=== PATIENT | male | born 1945 | race Caucasian/White ===

== ENCOUNTER 2018-01-16 16:41 | Inpatient (IN) | payer MEDICARE, OTHER ==
[2018-01-16] MEDS ORDERED: Ondansetron 4 MG/2 ML SDV IVPUSH ONE (16:46)
[2018-01-16] MEDS ORDERED: Morphine 4 MG/ML Syringe IVPUSH ONE ×2 (16:46→18:05)
--- NOTE | 2018-01-16 16:58 | EDM.PDOC ---
ED HPI GENERAL MEDICAL PROBLEM - General Stated Complaint: LT LEG FX Time Seen by Provider: 01/16/18 16:41 Source of Information: Reports: Patient History Limitations: Reports: No Limitations - History of Present Illness INITIAL COMMENTS - FREE TEXT/NARRATIVE: c/o LLE pain pt outside, walking on deck of a trailer home, LLE went between a wood and metal support beam deformity, no break in skin per EMS, good 1+ L DP pulse present LLE splinted, slight swell and abrasion of LLE denies pain of L knee/hip lives with his children declined pain meds with EMS, is having more pain now and agreed to meds denies previous CV PMH: includes HTN, DM, COPD - Related Data Allergies Allergy/AdvReac Type Severity Reaction Status Date / Time Sulfa (Sulfonamide Allergy Cannot Verified 08/12/16 04:02 Antibiotics) Remember Home Meds: Home Meds Aspirin 325 mg PO DAILY 02/22/15 [History] Citalopram [Citalopram HBr] 40 mg PO DAILY 02/22/15 [History] Insulin Aspart [Novolog Flexpen] 10 units SQ WDIN 02/22/15 [History] Insulin Detemir [Levemir Flextouch] 30 units SQ BEDTIME 02/22/15 [History] Losartan [Cozaar] 100 mg PO DAILY 02/22/15 [History] Metoprolol Tartrate 100 mg PO BID 02/22/15 [History] amLODIPine [Norvasc] 5 mg PO DAILY 02/22/15 [History] Azithromycin [Zithromax] 250 mg PO DAILY@1800 #4 tablet 02/24/15 [Rx] Budesonide/Formoterol [Symbicort 160-4.5 MCG] 2 puff IH BID 08/13/16 [History] Insulin Aspart [NovoLOG] 0 units SUBCUT TIDMEALS PRN 08/13/16 [History] atorvaSTATin [Lipitor] 10 mg PO BEDTIME 08/13/16 [History] Levofloxacin [Levaquin] 500 mg PO Q24H #7 tablet 08/15/16 [Rx] predniSONE [Prednisone] 10 mg PO ASDIRECTED #6 tablet 08/15/16 [Rx] Past Medical History HEENT History: Reports: Impaired Vision Cardiovascular History: Reports: Hypertension, [place], SOB on Exertion Respiratory History: Reports: Bronchitis, Recurrent, COPD, SOB Musculoskeletal History: Reports: Arthritis, Back Pain, Chronic Endocrine/Metabolic History: Reports: Diabetes, Type II Oncologic (Cancer) History: Reports: Prostate - Infectious Disease History Infectious Disease History: Reports: Chicken Pox, Measles - Past Surgical History GI Surgical History: Reports: Appendectomy Social & Family History - Family History Family Medical History: Noncontributory - Tobacco Use Smoking Status *Q: Current Every Day Smoker Years of Tobacco use: 65 Packs/Tins Daily: 1 Second Hand Smoke Exposure: Yes - Caffeine Use Caffeine Use: Reports: Coffee, Soda - Alcohol Use Days Per Week of Alcohol Use: 0 - Recreational Drug Use Recreational Drug Use: No - Living Situation & Occupation Living situation: Reports: , Alone Occupation: Retired Review of Systems - Review of Systems Review Of Systems: See Below Constitutional: Reports: No Symptoms Eyes: Reports: No Symptoms Ears: Reports: No Symptoms Nose: Reports: No Symptoms Mouth/Throat: Reports: No Symptoms Respiratory: Reports: No Symptoms Cardiovascular: Reports: No Symptoms GI/Abdominal: Reports: No Symptoms Genitourinary: Reports: No Symptoms Musculoskeletal: Reports: Other (LLE pain) Skin: Reports: No Symptoms Neurological: Reports: No Symptoms Psychiatric: Reports: No Symptoms ED EXAM, GENERAL - Physical Exam Exam: See Below Exam Limited By: No Limitations General Appearance: Alert, WD/WN, Mild Distress Nose: Normal Inspection, Normal Mucosa, No Blood Throat/Mouth: Normal Inspection, Normal Lips, Normal Voice, No Airway Compromise Head: Atraumatic, Normocephalic Neck: Normal Inspection, Supple, Non-Tender, Full Range of Motion Respiratory/Chest: No Respiratory Distress, Lungs Clear, Normal Breath Sounds, No Accessory Muscle Use, Chest Non-Tender Cardiovascular: Normal Peripheral Pulses, Regular Rate, Rhythm, No Edema, No Gallop, No JVD, No Murmur, No Rub GI/Abdominal: Soft, Non-Tender, No Distention Back Exam: Normal Inspection, Full Range of Motion, NT Extremities: Other (splint on L tib-fib, L knee wnl, no swell, NT, L ankle with lateral superficial abrasion and mild swell, no definite tender, good 1+ L DP pulse) Neurological: Alert, Oriented, CN II-XII Intact, Normal Cognition, Normal Gait, No Motor/Sensory Deficits Psychiatric: Normal Affect Skin Exam: Warm, Dry, Intact, Normal Color, No Rash Lymphatic: No Adenopathy Course - Orders/Labs/Meds Orders: Active Orders 24 hr Category Date Time Status EKG Documentation Completion [RC] ASDIRECTED Care 01/16/18 16:49 Active Tibia Fibula Lt [CR] Stat Exams 01/16/18 16:45 Taken EKG 12 Lead [EK] Routine Ther 01/16/18 16:48 Ordered Labs: Laboratory Tests 01/16/18 01/16/18 01/16/18 Range/Units 17:03 17:03 17:03 WBC 16.5 H (4.5-12.0) X10-3/uL RBC 5.36 (4.30-5.75) x10(6)uL Hgb 17.2 H (11.5-15.5) g/dL Hct 51.1 (30.0-51.3) % MCV 95.4 (80-96) fL MCH 32.1 (27.7-33.6) pg MCHC 33.7 (32.2-35.4) g/dL RDW 12.2 (11.5-15.5) % Plt Count 204 (125-369) X10(3)uL MPV 8.9 (7.4-10.4) fL Add Manual Diff Yes Neutrophils % (Manual) 84 H (46-82) % Band Neutrophils % 1 (0-6) % Lymphocytes % (Manual) 9 L (13-37) % Monocytes % (Manual) 6 (4-12) % PT 11.7 H (8.7-11.1) INR 1.16 H (0.89-1.13) Sodium 141 (135-145) mmol/L Potassium 3.9 (3.5-5.3) mmol/L Chloride 101 (100-110) mmol/L Carbon Dioxide 29 (21-32) mmol/L BUN 21 H (7-18) mg/dL Creatinine 1.5 H (0.70-1.30) mg/dL Est Cr Clr Drug Dosing TNP Estimated GFR (MDRD) 46 L (>60) BUN/Creatinine Ratio 14.0 (9-20) Glucose 200 H (80-116) mg/dL Calcium 8.9 (8.6-10.2) mg/dL Total Bilirubin 1.0 (0.1-1.3) mg/dL AST 18 (5-25) IU/L ALT 23 (12-36) U/L Alkaline Phosphatase 51 L (56-112) IU/L Troponin I (<0.017-0.056) ng/mL NT-Pro-B Natriuret Pep (<=125) pg/mL Total Protein 7.5 (6.0-8.0) g/dL Albumin 3.8 (3.2-4.6) g/dL Globulin 3.7 g/dL Albumin/Globulin Ratio 1.0 01/16/18 01/16/18 Range/Units 17:03 17:03 WBC (4.5-12.0) X10-3/uL RBC (4.30-5.75) x10(6)uL Hgb (11.5-15.5) g/dL Hct (30.0-51.3) % MCV (80-96) fL MCH (27.7-33.6) pg MCHC (32.2-35.4) g/dL RDW (11.5-15.5) % Plt Count (125-369) X10(3)uL MPV (7.4-10.4) fL Add Manual Diff Neutrophils % (Manual) (46-82) % Band Neutrophils % (0-6) % Lymphocytes % (Manual) (13-37) % Monocytes % (Manual) (4-12) % PT (8.7-11.1) INR (0.89-1.13) Sodium (135-145) mmol/L Potassium (3.5-5.3) mmol/L Chloride (100-110) mmol/L Carbon Dioxide (21-32) mmol/L BUN (7-18) mg/dL Creatinine (0.70-1.30) mg/dL Est Cr Clr Drug Dosing Estimated GFR (MDRD) (>60) BUN/Creatinine Ratio (9-20) Glucose (80-116) mg/dL Calcium (8.6-10.2) mg/dL Total Bilirubin (0.1-1.3) mg/dL AST (5-25) IU/L ALT (12-36) U/L Alkaline Phosphatase (56-112) IU/L Troponin I < 0.017 L (<0.017-0.056) ng/mL NT-Pro-B Natriuret Pep 193 H (<=125) pg/mL Total Protein (6.0-8.0) g/dL Albumin (3.2-4.6) g/dL Globulin g/dL Albumin/Globulin Ratio Meds: Medications Discontinued Medications Generic Name Dose Route Start Last Admin Trade Name Codeyq PRN Reason Stop Dose Admin Morphine Sulfate 4 mg 01/16/18 16:46 Morphine IVPUSH 01/16/18 16:47 ONETIME ONE Ondansetron HCl 4 mg 01/16/18 16:46 Zofran IVPUSH 01/16/18 16:47 ONETIME ONE - Re-Assessments/Exams Free Text/Narrative Re-Assessment/Exam: 01/16/18 17:40 d/w Dr Giron from ortho who will be here tomorrow and can do the surgery, pt agrees Departure - Departure Time of Disposition: 17:39 Disposition: Admitted As Inpatient 64 Condition: Good Clinical Impression: Fracture of left tibia and fibula, Dehydration, Acute prerenal azotemia - Discharge Information Referrals: Shey Christensen [employer] [Primary Care Provider] - - My Orders Last 24 Hours: My Active Orders 01/16/18 16:45 Tibia Fibula Lt [CR] Stat 01/16/18 16:48 EKG 12 Lead [EK] Routine 01/16/18 16:49 EKG Documentation Completion [RC] ASDIRECTED - Assessment/Plan Last 24 Hours: My Active Orders 01/16/18 16:45 Tibia Fibula Lt [CR] Stat 01/16/18 16:48 EKG 12 Lead [EK] Routine 01/16/18 16:49 EKG Documentation Completion [RC] ASDIRECTED
[2018-01-16] MEDS: Sodium Chloride 0.9% 10 ML Syringe FLUSH PRN ×3 (17:00→18:10)
[2018-01-16] MEDS ORDERED: Ondansetron 4 MG/2 ML SDV IV PRN (19:14)
[2018-01-16] MEDS ORDERED: Albuterol/Ipratropium 3.0-0.5 MG/3 ML Neb Soln INH PRN (19:25)
[2018-01-16] MEDS: Sodium Chloride 0.9% 1,000 ML IV SCH (20:43)
[2018-01-16] MEDS: Morphine 2 MG/ML Syringe IVPUSH PRN (20:50)
[2018-01-16] MEDS: Enoxaparin 40 MG/0.4 ML Syringe SUBCUT SCH (21:04)
[2018-01-16] MEDS: Formoterol/Mometasone 200-5 MCG 8.8 GM Inhaler IH SCH (21:05)
[2018-01-16] MEDS: atorvaSTATin 10 MG Tab PO SCH (21:06)
[2018-01-16] MEDS: Insulin Detemir 100 Units/ML 3 ML Pen SUBCUT SCH (21:06)
[2018-01-16] MEDS: Metoprolol Tartrate 100 MG Tab PO SCH (21:06)
[2018-01-17] MEDS: Morphine 2 MG/ML Syringe IVPUSH PRN ×5 (00:21→21:14)
[2018-01-17] MEDS: Formoterol/Mometasone 200-5 MCG 8.8 GM Inhaler IH SCH ×2 (06:47→20:52)
[2018-01-17] MEDS ORDERED: amLODIPine 10 MG Tab PO SCH (09:00)
--- NOTE | 2018-01-17 09:17 | CR ---
INDICATION: Fell off a trailer, deformity left lower extremity. LEFT TIBIA AND FIBULA: Four images of the left tibia and fibula were obtained portable, frontal and lateral projections, 01/16/2018, and compared with 2010 left ankle examination. Comminuted fractures of the distal shafts of the tibia and fibula are noted, by far more comminuted at the tibial fracture site, with significant anterior angulation at the fracture sites. Anterior offset of the distal tibial fracture fragment is noted, with additional lateral offset of the distal tibial fracture fragment of up to approximately 2 cm laterally. There is anterior offset of the distal fibular fracture site with an appearance of some overriding of the fracture fragments. Degenerative changes are noted at the ankle mortise of moderate degree. IMPRESSION: Fairly severe deformity and comminution distal shaft fractures of the tibia and fibula with offset and angulation of fracture fragments. MTDD
--- NOTE | 2018-01-17 09:36 | PCM.CONS ---
H&P History of Present Illness - General Date of Service: 01/17/18 Admit Problem/Dx: Admission Diagnosis/Problem Admission Diagnosis/Problem Fracture of tibia AND fibula Source of Information: Patient History Limitations: Reports: No Limitations - History of Present Illness Onset of Symptoms: Reports: Sudden Duration of Symptoms: Reports: Day(s): Location: Reports: Lower Extremity, Left Quality: Reports: Burning, Dull, Pressure Severity: Moderate Improves with: Reports: Immobilization Worsens with: Reports: Movement Associated Symptoms: Reports: No Other Symptoms Left Lower Leg Pain Score (Numeric/FACES): 7 - Related Data Allergies/Adverse Reactions: Allergies Allergy/AdvReac Type Severity Reaction Status Date / Time Sulfa (Sulfonamide Allergy Cannot Verified 01/16/18 18:32 Antibiotics) Remember Home Medications: Home Meds Aspirin 325 mg PO DAILY 02/22/15 [History] Citalopram [Citalopram HBr] 40 mg PO DAILY 02/22/15 [History] Insulin Aspart [Novolog Flexpen] 1 - 7 units SQ TIDMEALS PRN 02/22/15 [History] Insulin Detemir [Levemir Flextouch] 42 units SQ BEDTIME 02/22/15 [History] Losartan [Cozaar] 100 mg PO DAILY 02/22/15 [History] Metoprolol Tartrate 100 mg PO BID 02/22/15 [History] Budesonide/Formoterol [Symbicort 160-4.5 MCG] 2 puff IH BID 08/13/16 [History] Insulin Aspart [NovoLOG] 10 - 14 units SUBCUT TIDMEALS 08/13/16 [History] atorvaSTATin [Lipitor] 10 mg PO BEDTIME 08/13/16 [History] Albuterol Sulfate [Ventolin Hfa] 2 puff INH Q6H PRN 01/16/18 [History] Ibuprofen 800 mg PO DAILY PRN 01/16/18 [History] Tiotropium [Spiriva HandiHaler] 18 mcg INH DAILY 01/16/18 [History] Albuterol/Ipratropium [DuoNeb 3.0-0.5 MG/3 ML] 3 ml IH BID PRN 01/17/18 [History ] Codeine/guaiFENesin [Robitussin AC] 5 ml PO TID PRN 01/17/18 [History] amLODIPine Besylate [Amlodipine Besylate] 10 mg PO DAILY 01/17/18 [History] Past Medical History HEENT History: Reports: Impaired Vision Cardiovascular History: Reports: Hypertension, [place], SOB on Exertion Respiratory History: Reports: Bronchitis, Recurrent, COPD, SOB, Other (See Below ) Other Respiratory History: onetime Pneumonia Genitourinary History: Reports: Other (See Below) Other Genitourinary History: inguinal hernia Musculoskeletal History: Reports: Arthritis Endocrine/Metabolic History: Reports: Diabetes, Type II Oncologic (Cancer) History: Reports: Prostate - Infectious Disease History Infectious Disease History: Reports: Chicken Pox, Measles - Past Surgical History HEENT Surgical History: Reports: Cataract Surgery, Other (See Below) Other HEENT Surgeries/Procedures: both eyes Cardiovascular Surgical History: Reports: None GI Surgical History: Reports: Appendectomy Male Surgical History: Reports: Prostatectomy Endocrine Surgical History: Reports: None Musculoskeletal Surgical History: Reports: None Social & Family History - Family History Family Medical History: Noncontributory - Tobacco Use Smoking Status *Q: Current Every Day Smoker Years of Tobacco use: 65 Packs/Tins Daily: 0.5 Used Tobacco, but Quit: Yes Month/Year Tobacco Last Used: today Second Hand Smoke Exposure: Yes - Caffeine Use Caffeine Use: Reports: Coffee Other Caffeine Use: 6-7 cups a day - Alcohol Use Days Per Week of Alcohol Use: 0 - Recreational Drug Use Recreational Drug Use: No - Living Situation & Occupation Living situation: Reports: , Alone Occupation: Retired H&P Review of Systems - Review of Systems: Review Of Systems: See Below General: Reports: No Symptoms HEENT: Reports: No Symptoms Pulmonary: Reports: No Symptoms Cardiovascular: Reports: No Symptoms Gastrointestinal: Reports: No Symptoms Genitourinary: Reports: No Symptoms Musculoskeletal: Reports: Leg Pain Skin: Reports: No Symptoms Psychiatric: Reports: No Symptoms Neurological: Reports: No Symptoms Hematologic/Lymphatic: Reports: No Symptoms Immunologic: Reports: No Symptoms Exam - Exam Exam: See Below - Vital Signs Vital Signs: Last Vital Signs Temp 97.6 F 01/17/18 08:00 Pulse 68 01/17/18 08:05 Resp 18 01/17/18 08:00 BP 124/73 01/17/18 08:00 Pulse Ox 92 L 01/17/18 08:05 Weight: 228 lb 9.6 oz - Exam General: Alert, Oriented HEENT: PERRLA, Conjunctiva Clear, Hearing Intact, Mucosa Moist & [place] Neck: Supple, Trachea Midline Extremities: Leg Pain Peripheral Pulses: 2+: Dorsalis Pedis (L), Dorsalis Pedis (R) Skin: Warm, Dry, Intact Psychiatric: Alert, Normal Affect, Normal Mood Physical Exam Comments:: Left lower extremity: Patient is able to wheel his toes without any issues. He has no tenderness to palpation along his knee, femur, hip, or groin. He has no pain on the contralateral extremity. - Patient Data Lab Results Last 24 hrs: Laboratory Results - last 24 hr 01/16/18 01/17/18 01/17/18 Range/Units 21:03 06:40 06:40 WBC 13.3 H (4.5-12.0) X10-3/uL RBC 4.52 (4.30-5.75) x10(6)uL Hgb 14.7 (11.5-15.5) g/dL Hct 43.2 (30.0-51.3) % MCV 95.7 (80-96) fL MCH 32.6 (27.7-33.6) pg MCHC 34.1 (32.2-35.4) g/dL RDW 12.2 (11.5-15.5) % Plt Count 163 (125-369) X10(3)uL MPV 9.1 (7.4-10.4) fL Add Manual Diff Yes Neutrophils % (Manual) 80 (46-82) % Lymphocytes % (Manual) 13 (13-37) % Monocytes % (Manual) 7 (4-12) % Sodium 141 (135-145) mmol/L Potassium 3.5 (3.5-5.3) mmol/L Chloride 103 (100-110) mmol/L Carbon Dioxide 30 (21-32) mmol/L BUN 18 (7-18) mg/dL Creatinine 1.2 (0.70-1.30) mg/dL Est Cr Clr Drug Dosing 62.79 mL/min Estimated GFR (MDRD) 59 L (>60) BUN/Creatinine Ratio 15.0 (9-20) Glucose 161 H (80-116) mg/dL POC Glucose 213 H (80-116) mg/dL Calcium 8.3 L (8.6-10.2) mg/dL 01/17/18 Range/Units 06:43 WBC (4.5-12.0) X10-3/uL RBC (4.30-5.75) x10(6)uL Hgb (11.5-15.5) g/dL Hct (30.0-51.3) % MCV (80-96) fL MCH (27.7-33.6) pg MCHC (32.2-35.4) g/dL RDW (11.5-15.5) % Plt Count (125-369) X10(3)uL MPV (7.4-10.4) fL Add Manual Diff Neutrophils % (Manual) (46-82) % Lymphocytes % (Manual) (13-37) % Monocytes % (Manual) (4-12) % Sodium (135-145) mmol/L Potassium (3.5-5.3) mmol/L Chloride (100-110) mmol/L Carbon Dioxide (21-32) mmol/L BUN (7-18) mg/dL Creatinine (0.70-1.30) mg/dL Est Cr Clr Drug Dosing mL/min Estimated GFR (MDRD) (>60) BUN/Creatinine Ratio (9-20) Glucose (80-116) mg/dL POC Glucose 143 H (80-116) mg/dL Calcium (8.6-10.2) mg/dL Result Diagrams: 01/17/18 06:40 01/17/18 06:40 Consult PN Assessment/Plan POD#: 0 Procedures: Procedures AIRWAY INHALATION TREATMENT (08/11/16) ASSAY OF LACTIC ACID (08/11/16) ASSAY OF NATRIURETIC PEPTIDE (08/11/16) ASSAY OF TROPONIN QUANT (08/11/16) BLOOD CULTURE FOR BACTERIA (08/11/16) CHEST X-RAY 1 VIEW FRONTAL (08/11/16) CHEST X-RAY 2VW FRONTAL&LATL (02/22/15) CLOSTRIDIUM AG IA (08/11/16) COMPLETE CBC W/AUTO DIFF WBC (08/11/16) CREATINE MB FRACTION (02/22/15) CT THORAX W/DYE (08/11/16) CT THORAX W/O DYE (05/06/17) ELECTROCARDIOGRAM TRACING (08/11/16) EMERGENCY DEPT VISIT (08/11/16) EMERGENCY DEPT VISIT (02/22/15) EMERGENCY DEPT VISIT (02/22/15) EMERGENCY DEPT VISIT (02/18/15) EMERGENCY DEPT VISIT (02/18/15) EVALUATE PT USE OF INHALER (08/11/16) GLUCOSE BLOOD TEST (08/11/16) GLYCOSYLATED HEMOGLOBIN TEST (08/11/16) HYDRATE IV INFUSION ADD-ON (08/11/16) METABOLIC PANEL TOTAL CA (08/11/16) MRI NECK SPINE W/O DYE (09/15/14) PROTHROMBIN TIME (08/11/16) ROUTINE VENIPUNCTURE (08/11/16) THER/PROPH/DIAG INJ SC/IM (02/18/15) THER/PROPH/DIAG IV INF ADDON (08/11/16) THER/PROPH/DIAG IV INF INIT (08/11/16) TX/PRO/DX INJ NEW DRUG ADDON (08/11/16) URINALYSIS AUTO W/SCOPE (08/11/16) VITAL CAPACITY TEST (08/11/16) (1) Fracture of left tibia and fibula SNOMED Code(s): 50726669 Code(s): S82.202A - UNSP FRACTURE OF SHAFT OF LEFT TIBIA, INIT FOR CLOS FX; S82.402A - UNSP FRACTURE OF SHAFT OF LEFT FIBULA, INIT FOR CLOS FX Current Visit: Yes Qualifiers: Encounter type: initial encounter Fracture type: closed Qualified Code(s) : S82.202A - Unspecified fracture of shaft of left tibia, initial encounter for closed fracture; S82.402A - Unspecified fracture of shaft of left fibula, initial encounter for closed fracture; S82.402A - Unspecified fracture of shaft of left fibula, initial encounter for closed fracture Problem List Initiated/Reviewed/Updated: Yes My Orders Last 24 Hours: My Active Orders 01/17/18 08:05 IS (RT) [RT Incentive Spirometry] [RC] ASDIRECTED Plan: Assessment: Midshaft tibia and fibula fracture left lower extremity Plan: I long discussion with patient regarding benefits and risks of the treatment. We'll plan on a left tibial nail this afternoon at around 1:30 PM. He 'll be nonweightbearing afterwards. He'll follow-up in the clinic in 2 weeks. I' ll plan on putting him into a walker boot. I've explained that he can take off the walker boot and shower. He understands he'll be nonweightbearing on crutches for proximally 6 weeks. I discussed my treatment plan and aftercare plan with the hospitalist. Patient History Reviewed: Yes Notified Requestor: Yes
[2018-01-17] MEDS: Sodium Chloride 0.9% 1,000 ML IV SCH (10:14)
[2018-01-17] MEDS: Tiotropium Inhaler 18 MCG Inhalation Powder Cap Kit of 5 INH SCH (10:20)
[2018-01-17] MEDS: Losartan 100 MG Tab PO SCH (10:21)
[2018-01-17] MEDS: Aspirin 325 MG Tab.EC PO SCH (10:21)
[2018-01-17] MEDS: Metoprolol Tartrate 100 MG Tab PO SCH ×2 (10:21→21:02)
--- NOTE | 2018-01-17 11:54 | PCM.HP ---
H&P History of Present Illness - General Date of Service: 01/17/18 Admit Problem/Dx: Admission Diagnosis/Problem Admission Diagnosis/Problem Fracture of tibia AND fibula Source of Information: Patient, Old Records, Provider - History of Present Illness Initial Comments - Free Text/Narative: Patient is a 72-year-old male with oxygen-dependent COPD who yesterday afternoon was loading a barrel on a flat trailer. There was a board missing on the trailer and he slipped his Left foot into that hole which then caught on a bar beneath the trailer and he fell with his leg still in the hole. He did not sustain any other injuries. He actually fell into the water and mud with his upper body which he notes was quite soft. However he fractured his tibia and fibula. He's been admitted for preoperative clearance and will be going to the operating room for repair with Dr. Giron later this afternoon. He's otherwise been well over the last month to 6 weeks. No serious illnesses this winter per patient report. He's never had any problems with surgery in the past. He is fairly active physically but unable to walk 6 blocks because of his shortness of breath or take stairs. Past medical history: #1 Diabetes mellitus type 2, insulin-dependent. Last A1C per [facility] was in 11/20 and was 7.2. Doctors at [facility]. #2 depression, well-controlled. #3 hypertension. #4 history of coronary disease with acute myocardial infarction 15+ years ago. #5 COPD, oxygen dependent at 2 L baseline. Doesn't think has used prednisone in the last 12 months. #6 osteoarthritis. #7 prostate cancer status post radical prostatectomy. No radiation. No hormone treatment. #8 Hyperlipidemia Social history: The patient lives with his son and is . Smokes one half pack of cigarettes per day. Does not drink any alcohol. 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 He is very active with this and works most days doing this. Family history: The patient's mother is alive and 99 years old and the [facility]. The patient 's father in his 70s from heart disease. He also had diabetes. No cancer. Left Lower Leg Pain Score (Numeric/FACES): 7 - Related Data Allergies/Adverse Reactions: Allergies Allergy/AdvReac Type Severity Reaction Status Date / Time Sulfa (Sulfonamide Allergy Cannot Verified 01/16/18 18:32 Antibiotics) Remember Home Medications: Home Meds Aspirin 325 mg PO DAILY 02/22/15 [History] Citalopram [Citalopram HBr] 40 mg PO DAILY 02/22/15 [History] Insulin Aspart [Novolog Flexpen] 1 - 7 units SQ TIDMEALS PRN 02/22/15 [History] Insulin Detemir [Levemir Flextouch] 42 units SQ BEDTIME 02/22/15 [History] Losartan [Cozaar] 100 mg PO DAILY 02/22/15 [History] Metoprolol Tartrate 100 mg PO BID 02/22/15 [History] Budesonide/Formoterol [Symbicort 160-4.5 MCG] 2 puff IH BID 08/13/16 [History] Insulin Aspart [NovoLOG] 10 - 14 units SUBCUT TIDMEALS 08/13/16 [History] atorvaSTATin [Lipitor] 10 mg PO BEDTIME 08/13/16 [History] Albuterol Sulfate [Ventolin Hfa] 2 puff INH Q6H PRN 01/16/18 [History] Ibuprofen 800 mg PO DAILY PRN 01/16/18 [History] Tiotropium [Spiriva HandiHaler] 18 mcg INH DAILY 01/16/18 [History] Albuterol/Ipratropium [DuoNeb 3.0-0.5 MG/3 ML] 3 ml IH BID PRN 01/17/18 [History ] Aspirin [Ecotrin] 325 mg PO DAILY #30 tab.ec 01/17/18 [Rx] Codeine/guaiFENesin [Robitussin AC] 5 ml PO TID PRN 01/17/18 [History] amLODIPine Besylate [Amlodipine Besylate] 10 mg PO DAILY 01/17/18 [History] oxyCODONE HCl/Acetaminophen [Percocet 5-325 mg Tablet] 1 each PO TID #90 tablet 01/17/18 [Rx] Past Medical History HEENT History: Reports: Impaired Vision Cardiovascular History: Reports: Hypertension, NE, SOB on Exertion Respiratory History: Reports: Bronchitis, Recurrent, COPD, SOB, Other (See Below ) Other Respiratory History: onetime Pneumonia Genitourinary History: Reports: Other (See Below) Other Genitourinary History: inguinal hernia Musculoskeletal History: Reports: Arthritis Endocrine/Metabolic History: Reports: Diabetes, Type II Oncologic (Cancer) History: Reports: Prostate - Infectious Disease History Infectious Disease History: Reports: Chicken Pox, Measles - Past Surgical History HEENT Surgical History: Reports: Cataract Surgery, Other (See Below) Other HEENT Surgeries/Procedures: both eyes Cardiovascular Surgical History: Reports: None GI Surgical History: Reports: Appendectomy Male Surgical History: Reports: Prostatectomy Endocrine Surgical History: Reports: None Musculoskeletal Surgical History: Reports: None Social & Family History - Family History Family Medical History: Noncontributory - Tobacco Use Smoking Status *Q: Current Every Day Smoker Years of Tobacco use: 65 Packs/Tins Daily: 0.5 Used Tobacco, but Quit: Yes Month/Year Tobacco Last Used: today Second Hand Smoke Exposure: Yes - Caffeine Use Caffeine Use: Reports: Coffee Other Caffeine Use: 6-7 cups a day - Alcohol Use Days Per Week of Alcohol Use: 0 - Recreational Drug Use Recreational Drug Use: No - Living Situation & Occupation Living situation: Reports: , Alone Occupation: Retired H&P Review of Systems - Review of Systems: Review Of Systems: See Below General: Reports: No Symptoms HEENT: Reports: No Symptoms Pulmonary: Reports: No Symptoms, Shortness of Breath (at baseline. 2L oxygen all the time.) Cardiovascular: Reports: No Symptoms Gastrointestinal: Reports: No Symptoms Genitourinary: Reports: No Symptoms Musculoskeletal: Reports: No Symptoms Skin: Reports: No Symptoms Psychiatric: Reports: No Symptoms Neurological: Reports: No Symptoms Hematologic/Lymphatic: Reports: No Symptoms Immunologic: Reports: No Symptoms Exam - Exam Exam: See Below - Vital Signs Vital Signs: Last Vital Signs Temp 36.4 C 01/17/18 08:00 Pulse 88 01/17/18 10:21 Resp 18 01/17/18 08:00 BP 124/74 01/17/18 10:21 Pulse Ox 92 L 01/17/18 08:05 Weight: 103.691 kg - Exam General: Alert, Oriented, Cooperative HEENT: PERRLA (mucosa dry, unable to open mouth adequately to assess oropharynx. ), Pupils Equal, Pupils Reactive Neck: Supple, Full Range of Motion Lungs: Crackles (clear with deep inspiration. No rhonchi, wheezes. ) Cardiovascular: Regular Rate, Regular Rhythm, Normal S1, Normal S2 GI/Abdominal Exam: Normal Bowel Sounds, Soft, Non-Tender, No Distention (Male) Exam: Deferred Rectal (Males) Exam: Deferred Back Exam: Normal Inspection, Full Range of Motion Extremities: Other (left leg in splint, able to wiggle toes, good capillary refill. No edema on the right.) Skin: Warm, Dry, Intact Neuro Extensive - Mental Status: Alert, Oriented x3 - Patient Data Lab Results Last 24 hrs: Laboratory Results - last 24 hr 01/16/18 01/17/18 01/17/18 Range/Units 21:03 06:40 06:40 WBC 13.3 H (4.5-12.0) X10-3/uL RBC 4.52 (4.30-5.75) x10(6)uL Hgb 14.7 (11.5-15.5) g/dL Hct 43.2 (30.0-51.3) % MCV 95.7 (80-96) fL MCH 32.6 (27.7-33.6) pg MCHC 34.1 (32.2-35.4) g/dL RDW 12.2 (11.5-15.5) % Plt Count 163 (125-369) X10(3)uL MPV 9.1 (7.4-10.4) fL Add Manual Diff Yes Neutrophils % (Manual) 80 (46-82) % Lymphocytes % (Manual) 13 (13-37) % Monocytes % (Manual) 7 (4-12) % Sodium 141 (135-145) mmol/L Potassium 3.5 (3.5-5.3) mmol/L Chloride 103 (100-110) mmol/L Carbon Dioxide 30 (21-32) mmol/L BUN 18 (7-18) mg/dL Creatinine 1.2 (0.70-1.30) mg/dL Est Cr Clr Drug Dosing 62.79 mL/min Estimated GFR (MDRD) 59 L (>60) BUN/Creatinine Ratio 15.0 (9-20) Glucose 161 H (80-116) mg/dL POC Glucose 213 H (80-116) mg/dL Calcium 8.3 L (8.6-10.2) mg/dL 01/17/18 01/17/18 Range/Units 06:43 11:09 WBC (4.5-12.0) X10-3/uL RBC (4.30-5.75) x10(6)uL Hgb (11.5-15.5) g/dL Hct (30.0-51.3) % MCV (80-96) fL MCH (27.7-33.6) pg MCHC (32.2-35.4) g/dL RDW (11.5-15.5) % Plt Count (125-369) X10(3)uL MPV (7.4-10.4) fL Add Manual Diff Neutrophils % (Manual) (46-82) % Lymphocytes % (Manual) (13-37) % Monocytes % (Manual) (4-12) % Sodium (135-145) mmol/L Potassium (3.5-5.3) mmol/L Chloride (100-110) mmol/L Carbon Dioxide (21-32) mmol/L BUN (7-18) mg/dL Creatinine (0.70-1.30) mg/dL Est Cr Clr Drug Dosing mL/min Estimated GFR (MDRD) (>60) BUN/Creatinine Ratio (9-20) Glucose (80-116) mg/dL POC Glucose 143 H 126 H (80-116) mg/dL Calcium (8.6-10.2) mg/dL Result Diagrams: 01/17/18 06:40 01/17/18 06:40 EKG INTERPRETATION EKG Date: 01/17/18 (NSR, no ST elevation or depression, no T wave inversion, one PAC. No prior for comparison.) *Q Meaningful Use (ADM) - VTE *Q VTE Criteria *Q: - Stroke *Q Stroke Criteria *Q: - AMI *Q AMI Criteria *Q: - Problem List (1) Fracture of tibia and fibula SNOMED Code(s): 100601850 ICD Code: S82.209A - UNSP FRACTURE OF SHAFT OF UNSP TIBIA, INIT FOR CLOS FX; S82.409A - UNSP FRACTURE OF SHAFT OF UNSP FIBULA, INIT FOR CLOS FX Status: Acute Current Visit: Yes Problem Details: To OR later today with Dr. Giron. Postop care routine per his orders. May be able to discharge home tonight if pain controlled and able to take PO. Has a son to assist at home. Will be nonweightbearing. (2) Diabetes mellitus SNOMED Code(s): 86056882 ICD Code: E11.9 - TYPE 2 DIABETES MELLITUS WITHOUT COMPLICATIONS Status: Acute Current Visit: Yes Problem Details: Hold insulin until able to take PO. SS coverage if needed. (3) HTN (hypertension), benign SNOMED Code(s): 00700688 ICD Code: I10 - ESSENTIAL (PRIMARY) HYPERTENSION Status: Acute Current Visit: Yes Problem Details: Stable. Continue home meds. (4) COPD (chronic obstructive pulmonary disease) SNOMED Code(s): 47335628 ICD Code: J44.9 - CHRONIC OBSTRUCTIVE PULMONARY DISEASE, UNSPECIFIED Status : Acute Current Visit: Yes Problem Details: Continue oxygen and breathing treatments. (5) Tobacco abuse SNOMED Code(s): 370587660 ICD Code: Z72.0 - TOBACCO USE Status: Acute Current Visit: Yes Problem Details: Patch and nicotine replacement. Discussed tobacco cessation and encouraged to quit. Problem List Initiated/Reviewed/Updated: Yes Orders Last 24hrs: Active Orders 24 hr Category Date Time Status Patient Status [ADT] Routine ADT 01/16/18 19:14 Active Bedrest Bedside Commode [RC] ASDIRECTED Care 01/16/18 19:14 Active Blood Glucose Check, Bedside [RC] QIDACANDBED Care 01/16/18 19:14 Active IS (RT) [RT Incentive Spirometry] [RC] ASDIRECTED Care 01/17/18 08:05 Active Notify Provider Consults [RC] ASDIRECTED Care 01/16/18 19:25 Active Oxygen Therapy [RC] PRN Care 01/16/18 19:14 Active VTE/DVT Education [RC] Per Unit Routine Care 01/16/18 19:14 Active Vital Signs [RC] 00,04,08,12,16,20 Care 01/16/18 19:14 Active Consult to Physician [CONS] Routine Cons 01/16/18 19:14 Ordered Nothing per Oral After Midnight Diet [DIET] Diet 01/16/18 Dinner Active BASIC METABOLIC PANEL,BMP [CHEM] DAILY Lab 01/18/18 06:00 Ordered BASIC METABOLIC PANEL,BMP [CHEM] DAILY Lab 01/19/18 06:00 Ordered BASIC METABOLIC PANEL,BMP [CHEM] DAILY Lab 01/20/18 06:00 Ordered BASIC METABOLIC PANEL,BMP [CHEM] DAILY Lab 01/21/18 06:00 Ordered CBC WITH AUTO DIFF [HEME] DAILY Lab 01/18/18 06:00 Ordered CBC WITH AUTO DIFF [HEME] DAILY Lab 01/19/18 06:00 Ordered CBC WITH AUTO DIFF [HEME] DAILY Lab 01/20/18 06:00 Ordered CBC WITH AUTO DIFF [HEME] DAILY Lab 01/21/18 06:00 Ordered Albuterol/Ipratropium [DuoNeb 3.0-0.5 MG/3 ML] Med 01/16/18 19:25 Active 3 ml INH BID PRN Aspirin [Ecotrin] Med 01/17/18 09:00 Active 325 mg PO DAILY Citalopram [Celexa] Med 01/17/18 09:00 Active 40 mg PO DAILY Enoxaparin [Lovenox] Med 01/16/18 20:00 Active 40 mg SUBCUT Q24H Insulin Detemir [Levemir] Med 01/16/18 21:00 Active 42 unit SUBCUT BEDTIME Losartan [Cozaar] Med 01/17/18 09:00 Active 100 mg PO DAILY Metoprolol Tartrate [Lopressor] Med 01/16/18 21:00 Active 100 mg PO BID Mometasone/Formoterol [Dulera 200-5 MCG] Med 01/17/18 08:32 Active 0 puff IH BIDRT Morphine Med 01/16/18 19:14 Active 2 mg IVPUSH Q2H PRN Ondansetron [Zofran] Med 01/16/18 19:14 Active 4 mg IV Q4H PRN Sodium Chloride 0.9% [Normal Saline] 1,000 ml Med 01/16/18 19:15 Active IV ASDIRECTED Sodium Chloride 0.9% [Saline Flush] Med 01/16/18 23:03 Active 10 ml FLUSH ASDIRECTED PRN Tiotropium [Spiriva HandiHaler] Med 01/17/18 09:00 Active 18 mcg INH DAILY amLODIPine [Norvasc] Med 01/17/18 09:00 Active 5 mg PO DAILY atorvaSTATin [Lipitor] Med 01/16/18 21:00 Active 10 mg PO BEDTIME Peripheral IV Insertion Adult [OM.PC] Routine Oth 01/16/18 18:15 Ordered Resuscitation Status Routine Resus Stat 01/16/18 19:14 Ordered Medication Orders Albuterol/Ipratropium (Duoneb 3.0-0.5 Mg/3 Ml) 3 ml INH BID PRN PRN Reason: Dyspnea Amlodipine Besylate (Norvasc) 5 mg PO DAILY [facility] Last Admin: 01/17/18 10:22 Dose: Aspirin (Ecotrin) 325 mg PO DAILY [facility] Last Admin: 01/17/18 10:21 Dose: Not Given Atorvastatin Calcium (Lipitor) 10 mg PO BEDTIME [facility] Last Admin: 01/16/18 21:06 Dose: 10 mg Citalopram Hydrobromide (Celexa) 40 mg PO DAILY [facility] Last Admin: 01/17/18 10:21 Dose: Not Given Enoxaparin Sodium (Lovenox) 40 mg SUBCUT Q24H [facility] Last Admin: 01/16/18 21:04 Dose: 40 mg Sodium Chloride (Normal Saline) 1,000 mls @ 75 mls/hr IV ASDIRECTED [facility] Last Admin: 01/17/18 10:14 Dose: 75 mls/hr Infusion: 01/17/18 10:03 Dose: 75 mls/hr Admin: 01/16/18 20:43 Dose: 75 mls/hr Insulin Detemir (Levemir) 42 unit SUBCUT BEDTIME [facility] Last Admin: 01/16/18 21:06 Dose: 42 unit Losartan Potassium (Cozaar) 100 mg PO DAILY [facility] Last Admin: 01/17/18 10:21 Dose: 100 mg Metoprolol Tartrate (Lopressor) 100 mg PO BID [facility] Last Admin: 01/17/18 10:21 Dose: 100 mg Admin: 01/16/18 21:06 Dose: 100 mg Mometasone Furoate/Formoterol Fumar (Dulera 200-5 Mcg) 0 puff IH BIDRT [facility] Morphine Sulfate (Morphine) 2 mg IVPUSH Q2H PRN PRN Reason: Pain (severe 7-10) Last Admin: 01/17/18 08:45 Dose: 2 mg Admin: 01/17/18 06:46 Dose: 2 mg Admin: 01/17/18 03:10 Dose: 2 mg Admin: 01/17/18 00:21 Dose: 2 mg Admin: 01/16/18 20:50 Dose: 2 mg Ondansetron HCl (Zofran) 4 mg IV Q4H PRN PRN Reason: Nausea/Vomiting Sodium Chloride (Saline Flush) 10 ml FLUSH ASDIRECTED PRN PRN Reason: Keep Vein Open Last Admin: 01/16/18 18:10 Dose: 10 ml Admin: 01/16/18 17:10 Dose: 10 ml Admin: 01/16/18 17:00 Dose: 10 ml Tiotropium [place] (Spiriva Handihaler) 18 mcg INH DAILY [facility] Last Admin: 01/17/18 10:20 Dose: 18 mcg Assessment/Plan Comment:: CODE STATUS discussed at length with the patient. Patient, if his breathing were to get so bad that it was likely he would if we didn't intubate, he would not want intubation. He would want comfort measures like medicines to ease his breathing. If he gets so sick in spite of all other supportive care that he dies, he would not want CPR. He would want to be allowed to pass peacefully. Thus patient is a DNR/DNI.
[2018-01-17] MEDS ORDERED: Nicotine Polacrilex 2 MG Loz BUCCAL PRN (12:21)
[2018-01-17] MEDS ORDERED: ceFAZolin 2 GM in Premix Bag 1 BAG IV ONE (13:15)
--- NOTE | 2018-01-17 13:15 | CR ---
INDICATION: Pre-op chest. COPD. CHEST: An AP upright view of the chest was obtained portable 01/17/2018 and compared with 08/11/2016 and 02/22/2015. Relatively poor inspiration is noted. It is difficult to exclude minimal patchy bronchopneumonia at the left lung base with heavy markings in that area. The lungs appear to be somewhat hyperaerated. The heart did not appear enlarged. The aorta is slightly tortuous. IMPRESSION: 1. Heavy markings at the left lung base may be on the basis of fibrosis, although linear atelectasis or even minimal pneumonia cannot be excluded. 2. Possible COPD. 3. Minimal ASD aorta. MTDD
[2018-01-17] MEDS ORDERED: Lactated Ringers 1,000 ML IV ONE (13:32)
[2018-01-17] MEDS ORDERED: Midazolam 1 MG/ML 2 ML SDV IV ONE (13:32)
[2018-01-17] MEDS ORDERED: Ondansetron 4 MG/2 ML SDV IVPUSH ONE (13:32)
[2018-01-17] MEDS ORDERED: fentaNYL 100 MCG/2 ML SDV IV ONE (13:32)
[2018-01-17] MEDS ORDERED: Propofol 200 MG/20 ML SDV IV ONE (13:32)
--- NOTE | 2018-01-17 15:49 | CR ---
INDICATION: Tibia and fibula fracture, open reduction. C-ARM IN O.R. LESS THAN ONE HOUR: 0.4 minutes C-arm fluoroscopy time were utilized in O.R. during ORIF of comminuted tibial fracture. Six spot images were obtained of the surgical site and revealed an intramedullary stu in place fixing the tibial fracture fragments in good position and alignment. The intramedullary stu is fixed in place by a screw through the distal tibial metaphysis and two screws through the proximal tibial metaphysis. All metallic components appear to be intact. No definite complicating process was seen. IMPRESSION: Satisfactory appearance post ORIF distal tibial shaft fracture. MTDD
[2018-01-17] MEDS: Nicotine 14 MG/24 Hr Patch TRDERM SCH (20:33)
[2018-01-17] MEDS: Enoxaparin 40 MG/0.4 ML Syringe SUBCUT SCH (20:36)
[2018-01-17] MEDS: Insulin Detemir 100 Units/ML 3 ML Pen SUBCUT SCH (21:01)
[2018-01-17] MEDS: atorvaSTATin 10 MG Tab PO SCH (21:02)
[2018-01-18] MEDS: Morphine 2 MG/ML Syringe IVPUSH PRN ×2 (01:22→07:50)
[2018-01-18] MEDS: Sodium Chloride 0.9% 1,000 ML IV SCH (01:29)
[2018-01-18] MEDS: Formoterol/Mometasone 200-5 MCG 8.8 GM Inhaler IH SCH ×2 (06:53→20:01)
[2018-01-18] MEDS: Acetaminophen/HYDROcodone 325-5 MG Tab PO PRN ×3 (07:50→17:08)
[2018-01-18] MEDS ORDERED: amLODIPine 5 MG Tab PO SCH (09:00)
[2018-01-18] MEDS: Metoprolol Tartrate 100 MG Tab PO SCH ×2 (09:18→20:03)
[2018-01-18] MEDS: Losartan 100 MG Tab PO SCH (09:21)
[2018-01-18] MEDS: Aspirin 325 MG Tab.EC PO SCH (09:23)
[2018-01-18] MEDS: Tiotropium Inhaler 18 MCG Inhalation Powder Cap Kit of 5 INH SCH (09:24)
[2018-01-18] MEDS: Insulin Aspart 100 Units/ML 3 ML Pen SUBCUT SCH ×3 (09:25→18:30)
[2018-01-18] MEDS ORDERED: Nicotine Polacrilex 2 MG Loz Box BUCCAL PRN (10:00)
--- NOTE | 2018-01-18 12:17 | PCM.PN ---
- General Info Date of Service: 01/18/18 Subjective Update: Patient is a 72-year-old male with a tibia/fibula fracture currently on postoperative day #1. From a surgical standpoint did very well. Pain is fairly well controlled. He has good hemostasis. His white count is up a little today so will follow that. He denies chest pain, shortness of breath, nausea, vomiting. However, the patient has really struggled to be mobilized. He is unable to get out of bed without assist of 2 or 3 staff people. There is just no way he is going to be able to discharge home. Functional Status: Reports: Pain Controlled - Patient Data Vitals - Most Recent: Last Vital Signs Temp 36.4 C 01/18/18 09:20 Pulse 72 01/18/18 09:54 Resp 20 01/18/18 09:20 BP 119/74 01/18/18 09:24 Pulse Ox 96 01/18/18 09:54 Weight - Most Recent: 103.691 kg I&O - Last 24 Hours: Intake & Output 01/17/18 01/18/18 01/18/18 22:59 06:59 14:59 Intake Total 649 560 325 Output Total 1200 Balance 649 -640 325 Lab Results Last 24 Hours: Laboratory Results - last 24 hr 01/17/18 01/17/18 01/18/18 Range/Units 17:40 21:00 06:12 WBC 15.2 H (4.5-12.0) X10-3/uL RBC 4.46 (4.30-5.75) x10(6)uL Hgb 14.5 (11.5-15.5) g/dL Hct 42.2 (30.0-51.3) % MCV 94.5 (80-96) fL MCH 32.5 (27.7-33.6) pg MCHC 34.4 (32.2-35.4) g/dL RDW 12.4 (11.5-15.5) % Plt Count 157 (125-369) X10(3)uL MPV 9.0 (7.4-10.4) fL Neut % (Auto) 84.8 H (46-82) % Lymph % (Auto) 5.6 L (13-37) % [place] % (Auto) 8.0 (4-12) % Eos % (Auto) 1 (1.0-5.0) % Baso % (Auto) 0 (0-2) % Neut # (Auto) 13.0 H (1.6-8.3) # Lymph # (Auto) 0.8 (0.6-5.0) # [place] # (Auto) 1.2 (0.0-1.3) # Eos # (Auto) 0.2 (0.0-0.8) # Baso # (Auto) 0.0 (0.0-0.2) # Sodium (135-145) mmol/L Potassium (3.5-5.3) mmol/L Chloride (100-110) mmol/L Carbon Dioxide (21-32) mmol/L BUN (7-18) mg/dL Creatinine (0.70-1.30) mg/dL Est Cr Clr Drug Dosing mL/min Estimated GFR (MDRD) (>60) BUN/Creatinine Ratio (9-20) Glucose (80-116) mg/dL POC Glucose 92 192 H D (80-116) mg/dL Calcium (8.6-10.2) mg/dL 01/18/18 01/18/18 Range/Units 06:12 06:57 WBC (4.5-12.0) X10-3/uL RBC (4.30-5.75) x10(6)uL Hgb (11.5-15.5) g/dL Hct (30.0-51.3) % MCV (80-96) fL MCH (27.7-33.6) pg MCHC (32.2-35.4) g/dL RDW (11.5-15.5) % Plt Count (125-369) X10(3)uL MPV (7.4-10.4) fL Neut % (Auto) (46-82) % Lymph % (Auto) (13-37) % [place] % (Auto) (4-12) % Eos % (Auto) (1.0-5.0) % Baso % (Auto) (0-2) % Neut # (Auto) (1.6-8.3) # Lymph # (Auto) (0.6-5.0) # [place] # (Auto) (0.0-1.3) # Eos # (Auto) (0.0-0.8) # Baso # (Auto) (0.0-0.2) # Sodium 138 (135-145) mmol/L Potassium 3.1 L (3.5-5.3) mmol/L Chloride 102 (100-110) mmol/L Carbon Dioxide 28 (21-32) mmol/L BUN 9 (7-18) mg/dL Creatinine 0.9 (0.70-1.30) mg/dL Est Cr Clr Drug Dosing 83.72 mL/min Estimated GFR (MDRD) > 60 (>60) BUN/Creatinine Ratio 10.0 (9-20) Glucose 184 H (80-116) mg/dL POC Glucose 170 H (80-116) mg/dL Calcium 8.3 L (8.6-10.2) mg/dL Med Orders - Current: Current Medications Hydrocodone Bitart/Acetaminophen ([place] 325-5 Mg) 1 tab PO Q3H PRN PRN Reason: pain > 5 Last Admin: 01/18/18 07:50 Dose: 1 tab Albuterol/Ipratropium (Duoneb 3.0-0.5 Mg/3 Ml) 3 ml INH BID PRN PRN Reason: Dyspnea Last Admin: 01/17/18 12:35 Dose: 3 ml Amlodipine Besylate (Norvasc) 10 mg PO DAILY [facility] Aspirin (Ecotrin) 325 mg PO DAILY [facility] Last Admin: 01/18/18 09:23 Dose: 325 mg Atorvastatin Calcium (Lipitor) 10 mg PO BEDTIME [facility] Last Admin: 01/17/18 21:02 Dose: 10 mg Citalopram Hydrobromide (Celexa) 40 mg PO DAILY [facility] Last Admin: 01/18/18 09:18 Dose: 40 mg Enoxaparin Sodium (Lovenox) 40 mg SUBCUT Q24H [facility] Last Admin: 01/17/18 20:36 Dose: 40 mg Insulin Aspart (Novolog) 0 unit SUBCUT TIDMEALS [facility] PRN Reason: Protocol Last Admin: 01/18/18 09:25 Dose: 2 units Insulin Detemir (Levemir) 42 unit SUBCUT BEDTIME [facility] Last Admin: 01/17/18 21:01 Dose: 42 unit Losartan Potassium (Cozaar) 100 mg PO DAILY [facility] Last Admin: 01/18/18 09:21 Dose: 100 mg Metoprolol Tartrate (Lopressor) 100 mg PO BID [facility] Last Admin: 01/18/18 09:18 Dose: 100 mg Mometasone Furoate/Formoterol Fumar (Dulera 200-5 Mcg) 0 puff IH BIDRT [facility] Last Admin: 01/18/18 06:53 Dose: 2 puff Morphine Sulfate (Morphine) 2 mg IVPUSH Q2H PRN PRN Reason: Pain (severe 7-10) Last Admin: 01/18/18 07:50 Dose: 2 mg Nicotine (Habitrol) 14 mg TRDERM DAILY@1230 [facility] Last Admin: 01/17/18 20:33 Dose: 14 mg Nicotine Polacrilex (Commit) 2 mg BUCCAL Q1H PRN PRN Reason: tobacco abuse Ondansetron HCl (Zofran) 4 mg IV Q4H PRN PRN Reason: Nausea/Vomiting Sodium Chloride (Saline Flush) 10 ml FLUSH ASDIRECTED PRN PRN Reason: Keep Vein Open Last Admin: 01/16/18 18:10 Dose: 10 ml Tiotropium [place] (Spiriva Handihaler) 18 mcg INH DAILY [facility] Last Admin: 01/18/18 09:24 Dose: 18 mcg Discontinued Medications Amlodipine Besylate (Norvasc) 5 mg PO DAILY [facility] Last Admin: 01/17/18 10:22 Dose: Not Given Amlodipine Besylate (Norvasc) 5 mg PO DAILY [facility] Last Admin: 01/18/18 09:24 Dose: 5 mg Sodium Chloride (Normal Saline) 1,000 mls @ 75 mls/hr IV ASDIRECTED [facility] Last Admin: 01/18/18 01:29 Dose: 75 mls/hr Cefazolin Sodium/Dextrose 2 gm (/ Premix) 50 mls @ 100 mls/hr IV ONETIME ONE Stop: 01/17/18 13:44 Last Admin: 01/17/18 13:28 Dose: 100 mls/hr Mometasone Furoate/Formoterol Fumar (Dulera 200-5 Mcg) 0 puff IH BIDRT [facility] Last Admin: 01/17/18 06:47 Dose: 2 puff Morphine Sulfate (Morphine) 4 mg IVPUSH ONETIME ONE Stop: 01/16/18 16:47 Last Admin: 01/16/18 17:10 Dose: 4 mg Morphine Sulfate (Morphine) 4 mg IVPUSH ONETIME ONE Stop: 01/16/18 18:06 Last Admin: 01/16/18 18:10 Dose: 4 mg Nicotine Polacrilex (Commit) 2 mg BUCCAL Q1H PRN PRN Reason: tobacco abuse Ondansetron HCl (Zofran) 4 mg IVPUSH ONETIME ONE Stop: 01/16/18 16:47 Last Admin: 01/16/18 17:10 Dose: 4 mg - Exam General: Alert, Oriented, Cooperative HEENT: Pupils Equal, Pupils Reactive Neck: Supple Lungs: Clear to Auscultation, Normal Respiratory Effort (Fine crackles in the bases which clear with deep inspiration.) Cardiovascular: Regular Rate, Regular Rhythm GI/Abdominal Exam: Normal Bowel Sounds, Soft, Non-Tender Back Exam: Normal Inspection Extremities: Other (Left foot is quite swollen and incision sites are dressed with bandages that are clean and dry. No erythema around the wounds.) Psy/Mental Status: Alert - Problem List & Annotations (1) Fracture of tibia and fibula SNOMED Code(s): 703094109 Code(s): S82.209A - UNSP FRACTURE OF SHAFT OF UNSP TIBIA, INIT FOR CLOS FX; S82.409A - UNSP FRACTURE OF SHAFT OF UNSP FIBULA, INIT FOR CLOS FX Status: Acute Current Visit: Yes Annotation/Comment:: Postoperative day #1. Patient nonweightbearing. Really unable to mobilize all independently or with assist of one. PT and OT are working with the patient and he will likely require swing bed placement. (2) Diabetes mellitus SNOMED Code(s): 21451413 Code(s): E11.9 - TYPE 2 DIABETES MELLITUS WITHOUT COMPLICATIONS Status: Acute Current Visit: Yes Annotation/Comment:: Patient receiving usual dose of Levemir but sliding scale aspart only. We'll restart aspart with meals 10 units when patient is eating more regularly. (3) HTN (hypertension), benign SNOMED Code(s): 11206065 Code(s): I10 - ESSENTIAL (PRIMARY) HYPERTENSION Status: Acute Current Visit: Yes Annotation/Comment:: Stable. Continue home meds. Norvasc has been underdosed because of some discrepancy in what dose the patient was taking. We will increase that to 10 mg tomorrow. (4) COPD (chronic obstructive pulmonary disease) SNOMED Code(s): 66536435 Code(s): J44.9 - CHRONIC OBSTRUCTIVE PULMONARY DISEASE, UNSPECIFIED Status : Acute Current Visit: Yes Annotation/Comment:: Continue oxygen and breathing treatments. (5) Tobacco abuse SNOMED Code(s): 057805062 Code(s): Z72.0 - TOBACCO USE Status: Acute Current Visit: Yes Annotation/Comment:: Patch and nicotine replacement. Discussed tobacco cessation and encouraged to quit. - Problem List Review Problem List Initiated/Reviewed/Updated: Yes - My Orders Last 24 Hours: My Active Orders 01/17/18 12:30 Nicotine [Habitrol] 14 mg TRDERM DAILY@1230 01/17/18 12:33 Code Status [Resuscitation Status] Routine 01/18/18 07:12 Acetaminophen/HYDROcodone [[place] 325-5 MG] 1 tab PO Q3H PRN 01/18/18 07:13 Convert IV to Saline Lock [OM.PC] Routine 01/18/18 07:19 OT Evaluation and Treatment [CONS] Routine PT Evaluation and Treatment [CONS] Routine 01/18/18 08:00 Insulin Aspart [NovoLOG] See Dose Instructions SUBCUT TIDMEALS 01/18/18 10:00 Nicotine Polacrilex [Commit] 2 mg BUCCAL Q1H PRN 01/18/18 Dinner Consistent Carbohydrate Diet [DIET] 01/18/18 Lunch Consistent Carbohydrate Diet [DIET] 01/19/18 09:00 amLODIPine [Norvasc] 10 mg PO DAILY - Plan Plan:: CODE STATUS discussed at length with the patient. Patient, if his breathing were to get so bad that it was likely he would if we didn't intubate, he would not want intubation. He would want comfort measures like medicines to ease his breathing. If he gets so sick in spite of all other supportive care that he dies, he would not want CPR. He would want to be allowed to pass peacefully. Thus patient is a DNR/DNI.
[2018-01-18] MEDS: Nicotine 14 MG/24 Hr Patch TRDERM SCH (12:47)
[2018-01-18] MEDS: Enoxaparin 40 MG/0.4 ML Syringe SUBCUT SCH (20:01)
[2018-01-18] MEDS: atorvaSTATin 10 MG Tab PO SCH (20:02)
[2018-01-18] MEDS: Insulin Detemir 100 Units/ML 3 ML Pen SUBCUT SCH (20:20)
[2018-01-18] MEDS: Magnesium Hydroxide 400 MG/5 ML Susp 30 ML Cup PO PRN (20:49)
[2018-01-19] MEDS: Acetaminophen/HYDROcodone 325-5 MG Tab PO PRN ×5 (00:37→18:40)
[2018-01-19] MEDS: Formoterol/Mometasone 200-5 MCG 8.8 GM Inhaler IH SCH ×2 (06:18→20:31)
[2018-01-19] MEDS: Insulin Aspart 100 Units/ML 3 ML Pen SUBCUT SCH ×5 (08:42→18:28)
[2018-01-19] MEDS: Metoprolol Tartrate 100 MG Tab PO SCH ×2 (08:43→20:33)
[2018-01-19] MEDS: Aspirin 325 MG Tab.EC PO SCH (08:44)
[2018-01-19] MEDS: Losartan 100 MG Tab PO SCH (08:45)
[2018-01-19] MEDS: Tiotropium Inhaler 18 MCG Inhalation Powder Cap Kit of 5 INH SCH (08:45)
[2018-01-19] MEDS ORDERED: amLODIPine 10 MG Tab PO SCH (09:00)
[2018-01-19] MEDS: Nicotine 14 MG/24 Hr Patch TRDERM SCH (12:56)
--- NOTE | 2018-01-19 13:28 | PCM.PN ---
- General Info Date of Service: 01/19/18 Subjective Update: Patient is a 72-year-old male currently on hospital day #4 postoperative day #2 for left tib-fib fracture status post open reduction and internal fixation. Patient's only complaint today is that his pain is not well controlled. As he's been trying to get up and move around he is in great distress. Recommended we increase his pain medication from 1-2 [place] tabs every 3 hours as needed for pain. He's had no chest pain, no shortness of breath, no nausea, no vomiting, appetite has been fair. His white count has been slightly elevated since surgery initially 15.2 and now down to 12.1 today. I did check a chest x-ray and a urinalysis today and the chest x-ray did not show any infiltrate. Urinalysis was negative. He has been afebrile. His left leg is slightly swollen but does not appear erythematous or cellulitic. - Patient Data Vitals - Most Recent: Last Vital Signs Temp 36.3 C 01/19/18 12:25 Pulse 71 01/19/18 12:25 Resp 20 01/19/18 12:25 BP 116/72 01/19/18 12:25 Pulse Ox 94 L 01/19/18 12:25 Weight - Most Recent: 103.691 kg I&O - Last 24 Hours: Intake & Output 01/18/18 01/19/18 01/19/18 22:59 06:59 14:59 Output Total 700 Balance -700 Lab Results Last 24 Hours: Laboratory Results - last 24 hr 01/18/18 01/18/18 01/18/18 Range/Units 11:04 16:59 20:19 WBC (4.5-12.0) X10-3/uL RBC (4.30-5.75) x10(6)uL Hgb (11.5-15.5) g/dL Hct (30.0-51.3) % MCV (80-96) fL MCH (27.7-33.6) pg MCHC (32.2-35.4) g/dL RDW (11.5-15.5) % Plt Count (125-369) X10(3)uL MPV (7.4-10.4) fL Neut % (Auto) (46-82) % Lymph % (Auto) (13-37) % [place] % (Auto) (4-12) % Eos % (Auto) (1.0-5.0) % Baso % (Auto) (0-2) % Neut # (Auto) (1.6-8.3) # Lymph # (Auto) (0.6-5.0) # [place] # (Auto) (0.0-1.3) # Eos # (Auto) (0.0-0.8) # Baso # (Auto) (0.0-0.2) # Sodium (135-145) mmol/L Potassium (3.5-5.3) mmol/L Chloride (100-110) mmol/L Carbon Dioxide (21-32) mmol/L BUN (7-18) mg/dL Creatinine (0.70-1.30) mg/dL Est Cr Clr Drug Dosing mL/min Estimated GFR (MDRD) (>60) BUN/Creatinine Ratio (9-20) Glucose (80-116) mg/dL POC Glucose 215 H 170 H 254 H D (80-116) mg/dL Calcium (8.6-10.2) mg/dL Urine Color (YELLOW) Urine Appearance (CLEAR) Urine pH (5.0-6.5) Ur Specific [place] (1.010-1.025) Urine Protein (NEGATIVE) mg/dL Urine Glucose (UA) (NEGATIVE) mg/dL Urine Ketones (NEGATIVE) mg/dL Urine Occult Blood (NEGATIVE) Urine Nitrite (NEGATIVE) Urine Bilirubin (NEGATIVE) Urine Urobilinogen (NEGATIVE) mg/dL Ur Leukocyte Esterase (NEGATIVE) Urine RBC (0) Urine WBC (0) Ur Squamous Epith Cells (NS,R,O) Urine Bacteria (NS) 01/19/18 01/19/18 01/19/18 Range/Units 05:40 06:00 06:00 WBC 12.1 H (4.5-12.0) X10-3/uL RBC 4.23 L (4.30-5.75) x10(6)uL Hgb 13.7 (11.5-15.5) g/dL Hct 39.9 (30.0-51.3) % MCV 94.2 (80-96) fL MCH 32.4 (27.7-33.6) pg MCHC 34.4 (32.2-35.4) g/dL RDW 12.1 (11.5-15.5) % Plt Count 154 (125-369) X10(3)uL MPV 8.9 (7.4-10.4) fL Neut % (Auto) 78.5 (46-82) % Lymph % (Auto) 9.0 L (13-37) % [place] % (Auto) 9.0 (4-12) % Eos % (Auto) 3 (1.0-5.0) % Baso % (Auto) 0 (0-2) % Neut # (Auto) 9.5 H (1.6-8.3) # Lymph # (Auto) 1.1 (0.6-5.0) # [place] # (Auto) 1.1 (0.0-1.3) # Eos # (Auto) 0.4 (0.0-0.8) # Baso # (Auto) 0.0 (0.0-0.2) # Sodium 138 (135-145) mmol/L Potassium 3.0 L (3.5-5.3) mmol/L Chloride 101 (100-110) mmol/L Carbon Dioxide 29 (21-32) mmol/L BUN 10 (7-18) mg/dL Creatinine 0.9 (0.70-1.30) mg/dL Est Cr Clr Drug Dosing 83.72 mL/min Estimated GFR (MDRD) > 60 (>60) BUN/Creatinine Ratio 11.1 (9-20) Glucose 138 H (80-116) mg/dL POC Glucose 136 H D (80-116) mg/dL Calcium 8.4 L (8.6-10.2) mg/dL Urine Color (YELLOW) Urine Appearance (CLEAR) Urine pH (5.0-6.5) Ur Specific [place] (1.010-1.025) Urine Protein (NEGATIVE) mg/dL Urine Glucose (UA) (NEGATIVE) mg/dL Urine Ketones (NEGATIVE) mg/dL Urine Occult Blood (NEGATIVE) Urine Nitrite (NEGATIVE) Urine Bilirubin (NEGATIVE) Urine Urobilinogen (NEGATIVE) mg/dL Ur Leukocyte Esterase (NEGATIVE) Urine RBC (0) Urine WBC (0) Ur Squamous Epith Cells (NS,R,O) Urine Bacteria (NS) 03/18/18 03/18/18 Range/Units 11:00 11:07 WBC (4.5-12.0) X10-3/uL RBC (4.30-5.75) x10(6)uL Hgb (11.5-15.5) g/dL Hct (30.0-51.3) % MCV (80-96) fL MCH (27.7-33.6) pg MCHC (32.2-35.4) g/dL RDW (11.5-15.5) % Plt Count (125-369) X10(3)uL MPV (7.4-10.4) fL Neut % (Auto) (46-82) % Lymph % (Auto) (13-37) % [place] % (Auto) (4-12) % Eos % (Auto) (1.0-5.0) % Baso % (Auto) (0-2) % Neut # (Auto) (1.6-8.3) # Lymph # (Auto) (0.6-5.0) # [place] # (Auto) (0.0-1.3) # Eos # (Auto) (0.0-0.8) # Baso # (Auto) (0.0-0.2) # Sodium (135-145) mmol/L Potassium (3.5-5.3) mmol/L Chloride (100-110) mmol/L Carbon Dioxide (21-32) mmol/L BUN (7-18) mg/dL Creatinine (0.70-1.30) mg/dL Est Cr Clr Drug Dosing mL/min Estimated GFR (MDRD) (>60) BUN/Creatinine Ratio (9-20) Glucose (80-116) mg/dL POC Glucose 195 H (80-116) mg/dL Calcium (8.6-10.2) mg/dL Urine Color Yellow (YELLOW) Urine Appearance Clear (CLEAR) Urine pH 7.0 H (5.0-6.5) Ur Specific [place] 1.005 L (1.010-1.025) Urine Protein Negative (NEGATIVE) mg/dL Urine Glucose (UA) 100 H (NEGATIVE) mg/dL Urine Ketones Negative (NEGATIVE) mg/dL Urine Occult Blood Negative (NEGATIVE) Urine Nitrite Negative (NEGATIVE) Urine Bilirubin Negative (NEGATIVE) Urine Urobilinogen Normal (NEGATIVE) mg/dL Ur Leukocyte Esterase Negative (NEGATIVE) Urine RBC 0-5 (0) Urine WBC 0-5 (0) Ur Squamous Epith Cells Occasional (NS,R,O) Urine Bacteria Rare H (NS) Med Orders - Current: Current Medications Hydrocodone Bitart/Acetaminophen ([place] 325-5 Mg) 2 tab PO Q3H PRN PRN Reason: pain > 5 Last Admin: 01/19/18 13:13 Dose: 2 tab Albuterol/Ipratropium (Duoneb 3.0-0.5 Mg/3 Ml) 3 ml INH BID PRN PRN Reason: Dyspnea Last Admin: 01/17/18 12:35 Dose: 3 ml Amlodipine Besylate (Norvasc) 10 mg PO DAILY [facility] Last Admin: 01/19/18 11:00 Dose: 10 mg Aspirin (Ecotrin) 325 mg PO DAILY [facility] Last Admin: 01/19/18 08:44 Dose: 325 mg Atorvastatin Calcium (Lipitor) 10 mg PO BEDTIME [facility] Last Admin: 01/18/18 20:02 Dose: 10 mg Citalopram Hydrobromide (Celexa) 40 mg PO DAILY [facility] Last Admin: 01/19/18 08:43 Dose: 40 mg Enoxaparin Sodium (Lovenox) 40 mg SUBCUT Q24H [facility] Last Admin: 01/18/18 20:01 Dose: 40 mg Insulin Aspart (Novolog) 0 unit SUBCUT TIDMEALS [facility] PRN Reason: Protocol Last Admin: 01/19/18 12:53 Dose: 2 units Insulin Aspart (Novolog) 5 unit SUBCUT TIDMEALS [facility] Last Admin: 01/19/18 12:53 Dose: 5 units Insulin Detemir (Levemir) 42 unit SUBCUT BEDTIME [facility] Last Admin: 01/18/18 20:20 Dose: 42 unit Losartan Potassium (Cozaar) 100 mg PO DAILY [facility] Last Admin: 01/19/18 08:45 Dose: 100 mg Magnesium Hydroxide (Milk Of Magnesia) 30 ml PO DAILY PRN PRN Reason: Constipation Last Admin: 01/18/18 20:49 Dose: 30 ml Metoprolol Tartrate (Lopressor) 100 mg PO BID [facility] Last Admin: 01/19/18 08:43 Dose: 100 mg Mometasone Furoate/Formoterol Fumar (Dulera 200-5 Mcg) 0 puff IH BIDRT [facility] Last Admin: 01/19/18 06:18 Dose: 2 puff Morphine Sulfate (Morphine) 2 mg IVPUSH Q2H PRN PRN Reason: Pain (severe 7-10) Last Admin: 01/18/18 07:50 Dose: 2 mg Nicotine (Habitrol) 14 mg TRDERM DAILY@1230 [facility] Last Admin: 01/19/18 12:56 Dose: 14 mg Nicotine Polacrilex (Commit) 2 mg BUCCAL Q1H PRN PRN Reason: tobacco abuse Ondansetron HCl (Zofran) 4 mg IV Q4H PRN PRN Reason: Nausea/Vomiting Sodium Chloride (Saline Flush) 10 ml FLUSH ASDIRECTED PRN PRN Reason: Keep Vein Open Last Admin: 01/16/18 18:10 Dose: 10 ml Tiotropium [place] (Spiriva Handihaler) 18 mcg INH DAILY [facility] Last Admin: 01/19/18 08:45 Dose: 18 mcg Discontinued Medications Hydrocodone Bitart/Acetaminophen ([place] 325-5 Mg) 1 tab PO Q3H PRN PRN Reason: pain > 5 Last Admin: 01/19/18 08:59 Dose: 1 tab Amlodipine Besylate (Norvasc) 5 mg PO DAILY [facility] Last Admin: 01/17/18 10:22 Dose: Not Given Amlodipine Besylate (Norvasc) 5 mg PO DAILY [facility] Last Admin: 01/18/18 09:24 Dose: 5 mg Amlodipine Besylate (Norvasc) 10 mg PO DAILY [facility] Sodium Chloride (Normal Saline) 1,000 mls @ 75 mls/hr IV ASDIRECTED [facility] Last Admin: 01/18/18 01:29 Dose: 75 mls/hr Cefazolin Sodium/Dextrose 2 gm (/ Premix) 50 mls @ 100 mls/hr IV ONETIME ONE Stop: 01/17/18 13:44 Last Admin: 01/17/18 13:28 Dose: 100 mls/hr Mometasone Furoate/Formoterol Fumar (Dulera 200-5 Mcg) 0 puff IH BIDRT [facility] Last Admin: 01/17/18 06:47 Dose: 2 puff Morphine Sulfate (Morphine) 4 mg IVPUSH ONETIME ONE Stop: 01/16/18 16:47 Last Admin: 01/16/18 17:10 Dose: 4 mg Morphine Sulfate (Morphine) 4 mg IVPUSH ONETIME ONE Stop: 01/16/18 18:06 Last Admin: 01/16/18 18:10 Dose: 4 mg Nicotine Polacrilex (Commit) 2 mg BUCCAL Q1H PRN PRN Reason: tobacco abuse Ondansetron HCl (Zofran) 4 mg IVPUSH ONETIME ONE Stop: 01/16/18 16:47 Last Admin: 01/16/18 17:10 Dose: 4 mg - Exam General: Alert, Oriented, Cooperative HEENT: Pupils Equal, Pupils Reactive Neck: Supple Lungs: Clear to Auscultation, Normal Respiratory Effort, Decreased Breath Sounds (Initially has crackles to be clear with repeat inspiration.) Cardiovascular: Regular Rate, Regular Rhythm, No Murmurs GI/Abdominal Exam: Normal Bowel Sounds, Soft, Non-Tender Back Exam: Normal Inspection Extremities: Pedal Edema (Left lower extremity shows diffuse swelling from the upper thigh to the toes. No areas of redness. Dressings are clean and dry.) Wound/Incisions: Healing Well Psy/Mental Status: Alert, Normal Affect, Normal Mood - Problem List & Annotations (1) Fracture of tibia and fibula SNOMED Code(s): 100667765 Code(s): S82.209A - UNSP FRACTURE OF SHAFT OF UNSP TIBIA, INIT FOR CLOS FX; S82.409A - UNSP FRACTURE OF SHAFT OF UNSP FIBULA, INIT FOR CLOS FX Status: Acute Current Visit: Yes Annotation/Comment:: Hospital day #4, postoperative day #2. Pain is not well controlled. Pain medication increased as above. Continue mobilization as possible. (2) Diabetes mellitus SNOMED Code(s): 22366189 Code(s): E11.9 - TYPE 2 DIABETES MELLITUS WITHOUT COMPLICATIONS Status: Acute Current Visit: Yes Annotation/Comment:: Currently on sliding scale NovoLog and Levemir usual dose. We'll add 5 units NovoLog with meals which is half the patient's usual dose. (3) HTN (hypertension), benign SNOMED Code(s): 77190077 Code(s): I10 - ESSENTIAL (PRIMARY) HYPERTENSION Status: Acute Current Visit: Yes Annotation/Comment:: Stable. Continue home meds. (4) COPD (chronic obstructive pulmonary disease) SNOMED Code(s): 51755975 Code(s): J44.9 - CHRONIC OBSTRUCTIVE PULMONARY DISEASE, UNSPECIFIED Status : Acute Current Visit: Yes Annotation/Comment:: Continue oxygen and breathing treatments. (5) Tobacco abuse SNOMED Code(s): 683268297 Code(s): Z72.0 - TOBACCO USE Status: Acute Current Visit: Yes Annotation/Comment:: Patch and nicotine replacement. Encouraged to quit. (6) Leucocytosis SNOMED Code(s): 977618920 Code(s): D72.829 - ELEVATED WHITE BLOOD CELL COUNT, UNSPECIFIED Status: Acute Current Visit: No Annotation/Comment:: Unclear etiology. Chest x-ray and UA showed no evidence of infection. We'll continue to monitor as it's trending down. - Problem List Review Problem List Initiated/Reviewed/Updated: Yes - My Orders Last 24 Hours: My Active Orders 01/18/18 Dinner Consistent Carbohydrate Diet [DIET] 01/19/18 09:00 amLODIPine [Norvasc] 10 mg PO DAILY 01/19/18 09:45 CXR [Chest 2V] [CR] Routine 01/19/18 11:38 Acetaminophen/HYDROcodone [[place] 325-5 MG] 2 tab PO Q3H PRN 01/19/18 12:00 Insulin Aspart [NovoLOG] 5 unit SUBCUT TIDMEALS
[2018-01-19] MEDS ORDERED: Bacitracin Oint 15 GM Tube TOP PRN (15:38)
[2018-01-19] MEDS ORDERED: Bacitracin Oint 28.35 GM Tube TOP ONE (15:41)
[2018-01-19] MEDS: Insulin Detemir 100 Units/ML 3 ML Pen SUBCUT SCH (20:32)
[2018-01-19] MEDS: atorvaSTATin 10 MG Tab PO SCH (20:33)
[2018-01-19] MEDS: Magnesium Hydroxide 400 MG/5 ML Susp 30 ML Cup PO PRN (20:41)
[2018-01-19] MEDS: Enoxaparin 40 MG/0.4 ML Syringe SUBCUT SCH (21:47)
[2018-01-20] MEDS: Acetaminophen/HYDROcodone 325-5 MG Tab PO PRN ×2 (00:24→05:03)
[2018-01-20] MEDS: Formoterol/Mometasone 200-5 MCG 8.8 GM Inhaler IH SCH (06:12)
[2018-01-20] MEDS: Insulin Aspart 100 Units/ML 3 ML Pen SUBCUT SCH ×4 (08:01→12:24)
[2018-01-20] MEDS: Aspirin 325 MG Tab.EC PO SCH (08:03)
[2018-01-20] MEDS: Tiotropium Inhaler 18 MCG Inhalation Powder Cap Kit of 5 INH SCH (08:03)
[2018-01-20] MEDS ORDERED: amLODIPine 5 MG Tab PO SCH (09:00)
[2018-01-20] MEDS ORDERED: Losartan 50 MG Tab PO SCH (09:00)
--- NOTE | 2018-01-20 09:03 | PCM.PN ---
- General Info Date of Service: 01/20/18 Subjective Update: Patient very cheerful and sitting up in the chair this morning eating breakfast. His pain is very well controlled on the increased [place]. We did Jack wrap to try to improve swelling overnight because yesterday afternoon when I examined his leg with the dressings off he had developed some edematous fluid blisters. Swelling is much improved today but the wrap that uncomfortable this morning so it had been taken off. No chest pain, no shortness of breath, no nausea or vomiting, had a bowel movement last night. Functional Status: Reports: Pain Controlled - Patient Data Vitals - Most Recent: Last Vital Signs Temp 36.4 C 01/20/18 00:00 Pulse 72 01/20/18 05:00 Resp 20 01/20/18 00:00 BP 121/80 01/20/18 05:00 Pulse Ox 92 L 01/20/18 00:00 Weight - Most Recent: 103.691 kg I&O - Last 24 Hours: Intake & Output 01/19/18 01/20/18 01/20/18 22:59 06:59 14:59 Output Total 1000 Balance -1000 Lab Results Last 24 Hours: Laboratory Results - last 24 hr 01/19/18 01/19/18 01/19/18 Range/Units 11:00 11:07 17:07 WBC (4.5-12.0) X10-3/uL RBC (4.30-5.75) x10(6)uL Hgb (11.5-15.5) g/dL Hct (30.0-51.3) % MCV (80-96) fL MCH (27.7-33.6) pg MCHC (32.2-35.4) g/dL RDW (11.5-15.5) % Plt Count (125-369) X10(3)uL MPV (7.4-10.4) fL Neut % (Auto) (46-82) % Lymph % (Auto) (13-37) % Walker % (Auto) (4-12) % Eos % (Auto) (1.0-5.0) % Baso % (Auto) (0-2) % Neut # (Auto) (1.6-8.3) # Lymph # (Auto) (0.6-5.0) # Walker # (Auto) (0.0-1.3) # Eos # (Auto) (0.0-0.8) # Baso # (Auto) (0.0-0.2) # Sodium (135-145) mmol/L Potassium (3.5-5.3) mmol/L Chloride (100-110) mmol/L Carbon Dioxide (21-32) mmol/L BUN (7-18) mg/dL Creatinine (0.70-1.30) mg/dL Est Cr Clr Drug Dosing mL/min Estimated GFR (MDRD) (>60) BUN/Creatinine Ratio (9-20) Glucose (80-116) mg/dL POC Glucose 195 H 165 H (80-116) mg/dL Calcium (8.6-10.2) mg/dL Urine Color Yellow (YELLOW) Urine Appearance Clear (CLEAR) Urine pH 7.0 H (5.0-6.5) Ur Specific [place] 1.005 L (1.010-1.025) Urine Protein Negative (NEGATIVE) mg/dL Urine Glucose (UA) 100 H (NEGATIVE) mg/dL Urine Ketones Negative (NEGATIVE) mg/dL Urine Occult Blood Negative (NEGATIVE) Urine Nitrite Negative (NEGATIVE) Urine Bilirubin Negative (NEGATIVE) Urine Urobilinogen Normal (NEGATIVE) mg/dL Ur Leukocyte Esterase Negative (NEGATIVE) Urine RBC 0-5 (0) Urine WBC 0-5 (0) Ur Squamous Epith Cells Occasional (NS,R,O) Urine Bacteria Rare H (NS) 01/19/18 01/20/18 01/20/18 Range/Units 20:30 05:22 06:35 WBC 11.6 (4.5-12.0) X10-3/uL RBC 4.02 L (4.30-5.75) x10(6)uL Hgb 13.3 (11.5-15.5) g/dL Hct 38.1 (30.0-51.3) % MCV 94.8 (80-96) fL MCH 33.0 (27.7-33.6) pg MCHC 34.9 (32.2-35.4) g/dL RDW 12.5 (11.5-15.5) % Plt Count 163 (125-369) X10(3)uL MPV 9.0 (7.4-10.4) fL Neut % (Auto) 78.4 (46-82) % Lymph % (Auto) 9.5 L (13-37) % Walker % (Auto) 7.2 (4-12) % Eos % (Auto) 4 (1.0-5.0) % Baso % (Auto) 1 (0-2) % Neut # (Auto) 9.1 H (1.6-8.3) # Lymph # (Auto) 1.1 (0.6-5.0) # Walker # (Auto) 0.8 (0.0-1.3) # Eos # (Auto) 0.5 (0.0-0.8) # Baso # (Auto) 0.1 (0.0-0.2) # Sodium (135-145) mmol/L Potassium (3.5-5.3) mmol/L Chloride (100-110) mmol/L Carbon Dioxide (21-32) mmol/L BUN (7-18) mg/dL Creatinine (0.70-1.30) mg/dL Est Cr Clr Drug Dosing mL/min Estimated GFR (MDRD) (>60) BUN/Creatinine Ratio (9-20) Glucose (80-116) mg/dL POC Glucose 242 H 126 H D (80-116) mg/dL Calcium (8.6-10.2) mg/dL Urine Color (YELLOW) Urine Appearance (CLEAR) Urine pH (5.0-6.5) Ur Specific [place] (1.010-1.025) Urine Protein (NEGATIVE) mg/dL Urine Glucose (UA) (NEGATIVE) mg/dL Urine Ketones (NEGATIVE) mg/dL Urine Occult Blood (NEGATIVE) Urine Nitrite (NEGATIVE) Urine Bilirubin (NEGATIVE) Urine Urobilinogen (NEGATIVE) mg/dL Ur Leukocyte Esterase (NEGATIVE) Urine RBC (0) Urine WBC (0) Ur Squamous Epith Cells (NS,R,O) Urine Bacteria (NS) 01/20/18 Range/Units 06:35 WBC (4.5-12.0) X10-3/uL RBC (4.30-5.75) x10(6)uL Hgb (11.5-15.5) g/dL Hct (30.0-51.3) % MCV (80-96) fL MCH (27.7-33.6) pg MCHC (32.2-35.4) g/dL RDW (11.5-15.5) % Plt Count (125-369) X10(3)uL MPV (7.4-10.4) fL Neut % (Auto) (46-82) % Lymph % (Auto) (13-37) % Walker % (Auto) (4-12) % Eos % (Auto) (1.0-5.0) % Baso % (Auto) (0-2) % Neut # (Auto) (1.6-8.3) # Lymph # (Auto) (0.6-5.0) # Walker # (Auto) (0.0-1.3) # Eos # (Auto) (0.0-0.8) # Baso # (Auto) (0.0-0.2) # Sodium 138 (135-145) mmol/L Potassium 3.3 L (3.5-5.3) mmol/L Chloride 102 (100-110) mmol/L Carbon Dioxide 30 (21-32) mmol/L BUN 12 (7-18) mg/dL Creatinine 0.9 (0.70-1.30) mg/dL Est Cr Clr Drug Dosing 83.72 mL/min Estimated GFR (MDRD) > 60 (>60) BUN/Creatinine Ratio 13.3 (9-20) Glucose 140 H (80-116) mg/dL POC Glucose (80-116) mg/dL Calcium 8.2 L (8.6-10.2) mg/dL Urine Color (YELLOW) Urine Appearance (CLEAR) Urine pH (5.0-6.5) Ur Specific [place] (1.010-1.025) Urine Protein (NEGATIVE) mg/dL Urine Glucose (UA) (NEGATIVE) mg/dL Urine Ketones (NEGATIVE) mg/dL Urine Occult Blood (NEGATIVE) Urine Nitrite (NEGATIVE) Urine Bilirubin (NEGATIVE) Urine Urobilinogen (NEGATIVE) mg/dL Ur Leukocyte Esterase (NEGATIVE) Urine RBC (0) Urine WBC (0) Ur Squamous Epith Cells (NS,R,O) Urine Bacteria (NS) Med Orders - Current: Current Medications Hydrocodone Bitart/Acetaminophen ([place] 325-5 Mg) 2 tab PO Q3H PRN PRN Reason: pain > 5 Last Admin: 01/20/18 05:03 Dose: 2 tab Albuterol/Ipratropium (Duoneb 3.0-0.5 Mg/3 Ml) 3 ml INH BID PRN PRN Reason: Dyspnea Last Admin: 01/17/18 12:35 Dose: 3 ml Aspirin (Ecotrin) 325 mg PO DAILY [facility] Last Admin: 01/20/18 08:03 Dose: 325 mg Atorvastatin Calcium (Lipitor) 10 mg PO BEDTIME [facility] Last Admin: 01/19/18 20:33 Dose: 10 mg Bacitracin (Bacitracin Oint) 0 gm TOP TID PRN PRN Reason: skin abrasion Citalopram Hydrobromide (Celexa) 40 mg PO DAILY [facility] Last Admin: 01/20/18 08:03 Dose: 40 mg Enoxaparin Sodium (Lovenox) 40 mg SUBCUT Q24H [facility] Last Admin: 01/19/18 21:47 Dose: 40 mg Insulin Aspart (Novolog) 0 unit SUBCUT TIDMEALS [facility] PRN Reason: Protocol Last Admin: 01/20/18 08:01 Dose: Not Given Insulin Aspart (Novolog) 5 unit SUBCUT TIDMEALS [facility] Last Admin: 01/20/18 08:02 Dose: 5 units Insulin Detemir (Levemir) 42 unit SUBCUT BEDTIME [facility] Last Admin: 01/19/18 20:32 Dose: 42 unit Losartan Potassium (Cozaar) 50 mg PO DAILY [facility] Magnesium Hydroxide (Milk Of Magnesia) 30 ml PO DAILY PRN PRN Reason: Constipation Last Admin: 01/19/18 20:41 Dose: 30 ml Metoprolol Tartrate (Lopressor) 100 mg PO BID [facility] Last Admin: 01/19/18 20:33 Dose: 100 mg Mometasone Furoate/Formoterol Fumar (Dulera 200-5 Mcg) 0 puff IH BIDRT [facility] Last Admin: 01/20/18 06:12 Dose: 2 puff Morphine Sulfate (Morphine) 2 mg IVPUSH Q2H PRN PRN Reason: Pain (severe 7-10) Last Admin: 01/18/18 07:50 Dose: 2 mg Nicotine (Habitrol) 14 mg TRDERM DAILY@1230 [facility] Last Admin: 01/19/18 12:56 Dose: 14 mg Nicotine Polacrilex (Commit) 2 mg BUCCAL Q1H PRN PRN Reason: tobacco abuse Ondansetron HCl (Zofran) 4 mg IV Q4H PRN PRN Reason: Nausea/Vomiting Sodium Chloride (Saline Flush) 10 ml FLUSH ASDIRECTED PRN PRN Reason: Keep Vein Open Last Admin: 01/16/18 18:10 Dose: 10 ml Tiotropium [place] (Spiriva Handihaler) 18 mcg INH DAILY [facility] Last Admin: 01/20/18 08:03 Dose: 18 mcg Discontinued Medications Hydrocodone Bitart/Acetaminophen ([place] 325-5 Mg) 1 tab PO Q3H PRN PRN Reason: pain > 5 Last Admin: 01/19/18 08:59 Dose: 1 tab Amlodipine Besylate (Norvasc) 5 mg PO DAILY [facility] Last Admin: 01/17/18 10:22 Dose: Not Given Amlodipine Besylate (Norvasc) 5 mg PO DAILY [facility] Last Admin: 01/18/18 09:24 Dose: 5 mg Amlodipine Besylate (Norvasc) 10 mg PO DAILY [facility] Last Admin: 01/19/18 11:00 Dose: 10 mg Amlodipine Besylate (Norvasc) 10 mg PO DAILY [facility] Sodium Chloride (Normal Saline) 1,000 mls @ 75 mls/hr IV ASDIRECTED [facility] Last Admin: 01/18/18 01:29 Dose: 75 mls/hr Cefazolin Sodium/Dextrose 2 gm (/ Premix) 50 mls @ 100 mls/hr IV ONETIME ONE Stop: 01/17/18 13:44 Last Admin: 01/17/18 13:28 Dose: 100 mls/hr Losartan Potassium (Cozaar) 100 mg PO DAILY [facility] Last Admin: 01/19/18 08:45 Dose: 100 mg Mometasone Furoate/Formoterol Fumar (Dulera 200-5 Mcg) 0 puff IH BIDRT [facility] Last Admin: 01/17/18 06:47 Dose: 2 puff Morphine Sulfate (Morphine) 4 mg IVPUSH ONETIME ONE Stop: 01/16/18 16:47 Last Admin: 01/16/18 17:10 Dose: 4 mg Morphine Sulfate (Morphine) 4 mg IVPUSH ONETIME ONE Stop: 01/16/18 18:06 Last Admin: 01/16/18 18:10 Dose: 4 mg Nicotine Polacrilex (Commit) 2 mg [place]AL Q1H PRN PRN Reason: tobacco abuse Ondansetron HCl (Zofran) 4 mg IVPUSH ONETIME ONE Stop: 01/16/18 16:47 Last Admin: 01/16/18 17:10 Dose: 4 mg - Exam General: Alert, Oriented, Cooperative, No Acute Distress HEENT: Pupils Equal, Pupils Reactive Neck: Supple Lungs: Clear to Auscultation, Normal Respiratory Effort Cardiovascular: Regular Rate, Regular Rhythm, No Murmurs GI/Abdominal Exam: Normal Bowel Sounds, Soft, Non-Tender Extremities: Pedal Edema (Left leg shows improved edema, no further blisters or weeping. Incisions are clean and dry. Right is normal with no edema.) Wound/Incisions: Healing Well, Dressing Dry and Intact Psy/Mental Status: Alert, Normal Affect, Normal Mood - Problem List & Annotations (1) Fracture of tibia and fibula SNOMED Code(s): 506078114 Code(s): S82.209A - UNSP FRACTURE OF SHAFT OF UNSP TIBIA, INIT FOR CLOS FX; S82.409A - UNSP FRACTURE OF SHAFT OF UNSP FIBULA, INIT FOR CLOS FX Status: Acute Current Visit: Yes Annotation/Comment:: Hospital day #5, postoperative day #3. Pain is well controlled. Pain medication increased as above. Continue mobilization as possible. Patient requires at least the assist of one. Is a good candidate for swing bed or rehabilitation placement until he is able to mobilize independently. Continue Jack wraps when up in the chair to decrease swelling in the leg and remove when in bed to prevent skin injury. (2) Diabetes mellitus SNOMED Code(s): 56390885 Code(s): E11.9 - TYPE 2 DIABETES MELLITUS WITHOUT COMPLICATIONS Status: Acute Current Visit: Yes Annotation/Comment:: Currently on sliding scale NovoLog and Levemir usual dose, 5 units NovoLog with meals half the patient's usual dose. Blood sugars have improved. Will monitor at the same dose today. (3) HTN (hypertension), benign SNOMED Code(s): 93263055 Code(s): I10 - ESSENTIAL (PRIMARY) HYPERTENSION Status: Acute Current Visit: Yes Annotation/Comment:: Stable. Continue home meds. Patient was normotensive in bed but when he got up to the chair this morning his blood pressure dropped into the 90s systolic, although he was asymptomatic. This is before he received his morning meds. We are going to go ahead and give him his metoprolol when his pressure is above 110 systolic, recommended discontinuing amlodipine for the time being and we will decrease losartan to 50 mg daily until we see his pressure rebound. Since the patient has stopped smoking since he is in the hospital, it's possible his needs will decrease for antihypertensives. (4) COPD (chronic obstructive pulmonary disease) SNOMED Code(s): 79942229 Code(s): J44.9 - CHRONIC OBSTRUCTIVE PULMONARY DISEASE, UNSPECIFIED Status : Acute Current Visit: Yes Annotation/Comment:: Continue oxygen and breathing treatments. (5) Tobacco abuse SNOMED Code(s): 938683732 Code(s): Z72.0 - TOBACCO USE Status: Acute Current Visit: Yes Annotation/Comment:: Patch and nicotine replacement. Encouraged to quit. (6) Leucocytosis SNOMED Code(s): 309944004 Code(s): D72.829 - ELEVATED WHITE BLOOD CELL COUNT, UNSPECIFIED Status: Acute Current Visit: No Annotation/Comment:: Continues to improve. Continue to monitor. - Problem List Review Problem List Initiated/Reviewed/Updated: Yes - My Orders Last 24 Hours: My Active Orders 01/19/18 09:45 CXR [Chest 2V] [CR] Routine 01/19/18 11:38 Acetaminophen/HYDROcodone [[place] 325-5 MG] 2 tab PO Q3H PRN 01/19/18 12:00 Insulin Aspart [NovoLOG] 5 unit SUBCUT TIDMEALS 01/19/18 15:37 Communication Order [RC] DAILY 01/19/18 15:38 Bacitracin [Bacitracin Oint] See Dose Instructions TOP TID PRN 01/20/18 08:55 Losartan [Cozaar] 50 mg PO DAILY - Plan Plan:: CODE STATUS discussed at length with the patient. Patient, if his breathing were to get so bad that it was likely he would if we didn't intubate, he would not want intubation. He would want comfort measures like medicines to ease his breathing. If he gets so sick in spite of all other supportive care that he dies, he would not want CPR. He would want to be allowed to pass peacefully. Thus patient is a DNR/DNI.
[2018-01-20 11:02] VITALS: BP 114/73
[2018-01-20] MEDS: Metoprolol Tartrate 100 MG Tab PO SCH (11:03)
--- NOTE | 2018-01-20 11:46 | CR ---
INDICATION: Short of breath, hypoxia. CHEST: AP and lateral views of the chest, 01/19/2018, were compared with 2017 and 08/11/2016. The apical-most lung was not fully included on the study. Posterior sulcus on the right was not fully included on the study on the lateral view. There appears to be some minimal blunting of the left costophrenic angle, however, this was present on the previous examination. There appears to be some linear atelectasis and/or infiltrate in the lower middle lung field on the right, suggesting the possibility of pneumonia and minimal pleuritis. However, no gross consolidating pneumonia or significant sized effusion could be identified. Lungs appear to be somewhat hyperaerated. The heart is normal in size and shape. The aorta is minimally tortuous with some minimal calcification in the arch. Moderate bridging hyperostotic changes are noted in the upper middle through lower middle thoracic spine and at the lower thoracic spine. IMPRESSION: 1. Findings suggest minimal pleuroparenchymal changes on the left, compatible with patchy pneumonia and pleuritis. 2. Lungs appear to be somewhat hyperaerated. 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
[2018-01-20] MEDS: Nicotine 14 MG/24 Hr Patch TRDERM SCH (12:25)
--- NOTE | 2018-01-20 14:41 | PCM.DCSUM1 ---
Discharge Summary - Hospital Course Free Text/Narrative:: Date of admission: 01/16/18 Date of discharge: 01/20/18 Admission diagnosis: Left tib-fib fracture Discharge diagnosis: Left tib-fib fracture, Unable to ambulate without assistance and inability to care for self. Consults: Dr. Giron from orthopedics Procedures: Open reduction and internal fixation of left tibial fracture History of present illness: Patient is a 72-year-old male who was taking on a flat trailer and it was aborted missing. His foot went down into the lateral then he fell and fractured the mid shaft tibia and fibula. Hospital course: Patient did well with surgery and there were no complications on 01/17/18 but unfortunately following surgery he was unable to use crutches or a walker as he was too weak. Recommendation was made for swing bed to provide ongoing physical therapy and hopefully get the patient able to use a walker or crutches. Secondary diagnoses: See below. - Discharge Data Discharge Date: 01/20/18 Discharge Disposition: DC/Tfer W/I Hosp To Swing Condition: Good - Discharge Diagnosis/Problem(s) (1) Fracture of tibia and fibula SNOMED Code(s): 433918636 ICD Code: S82.209A - UNSP FRACTURE OF SHAFT OF UNSP TIBIA, INIT FOR CLOS FX; S82.409A - UNSP FRACTURE OF SHAFT OF UNSP FIBULA, INIT FOR CLOS FX Status: Acute Current Visit: Yes Problem Details: Hospital day #5, postoperative day #3. Pain is well controlled. Pain medication increased as above. Continue mobilization as possible. Patient requires at least the assist of one. Is a good candidate for swing bed or rehabilitation placement until he is able to mobilize independently. Continue Jack wraps when up in the chair to decrease swelling in the leg and remove when in bed to prevent skin injury. (2) Diabetes mellitus SNOMED Code(s): 80767329 ICD Code: E11.9 - TYPE 2 DIABETES MELLITUS WITHOUT COMPLICATIONS Status: Acute Current Visit: Yes Problem Details: Currently on sliding scale NovoLog and Levemir usual dose, 5 units NovoLog with meals half the patient's usual dose. Blood sugars have improved. Will monitor at the same dose today. (3) HTN (hypertension), benign SNOMED Code(s): 51795415 ICD Code: I10 - ESSENTIAL (PRIMARY) HYPERTENSION Status: Acute Current Visit: Yes Problem Details: Stable. Continue home meds. Patient was normotensive in bed but when he got up to the chair this morning his blood pressure dropped into the 90s systolic, although he was asymptomatic. This is before he received his morning meds. We are going to go ahead and give him his metoprolol when his pressure is above 110 systolic, recommended discontinuing amlodipine for the time being and we will decrease losartan to 50 mg daily until we see his pressure rebound. Since the patient has stopped smoking since he is in the hospital, it's possible his needs will decrease for antihypertensives. (4) COPD (chronic obstructive pulmonary disease) SNOMED Code(s): 88620187 ICD Code: J44.9 - CHRONIC OBSTRUCTIVE PULMONARY DISEASE, UNSPECIFIED Status : Acute Current Visit: Yes Problem Details: Continue oxygen and breathing treatments. (5) Tobacco abuse SNOMED Code(s): 561476193 ICD Code: Z72.0 - TOBACCO USE Status: Acute Current Visit: Yes Problem Details: Patch and nicotine replacement. Encouraged to quit. (6) Leucocytosis SNOMED Code(s): 608408779 ICD Code: D72.829 - ELEVATED WHITE BLOOD CELL COUNT, UNSPECIFIED Status: Acute Current Visit: No Problem Details: Continues to improve. Continue to monitor. - Patient Summary/Data Operative Procedure(s) Performed: Open reduction, internal fixation of left tibia midshaft fracture. Consults: Consultations 01/16/18 19:14 Consult to Physician [CONS] Routine Consulting Provider: Rico Giron Call Completed to Consulting Physician: Yes 01/18/18 07:19 OT Evaluation and Treatment [CONS] Routine Please Evaluate and Treat. OT Reason for Consult: ADL's This query below is only for informational purposes and is not editable. Admission Diagnosis/Problem: Fracture of tibia AND fibula PT Evaluation and Treatment [CONS] Routine Please Evaluate and Treat. PT Reason for Consult: Ambulation This query below is only for informational purposes and is not editable. Admission Diagnosis/Problem: Fracture of tibia AND fibula - Patient Instructions Diet: Usual Diet as Tolerated Activity: Apply Ice, As Tolerated, Elevate Extremity, Non Weight Bearing Driving: Do Not Drive Showering/Bathing: May Shower Wound/Incision Care: Keep Operative Site/Wound Site Clean and Dry Notify Provider of: Fever, Increased Pain, Swelling and Redness, Drainage, Nausea and/or Vomiting Other/Special Instructions: The patient's take 1 Percocet 3 times daily. He is also to take one full strength aspirin daily for 30 days for DVT prophylaxis. Follow-up is in 2 weeks in the clinic in [place]. - Discharge Plan Prescriptions/Med Rec: Aspirin [Ecotrin] 325 mg PO DAILY #30 tab.ec oxyCODONE HCl/Acetaminophen [Percocet 5-325 mg Tablet] 1 each PO TID #90 tablet Home Medications: Home Meds Aspirin 325 mg PO DAILY 02/22/15 [History] Citalopram [Citalopram HBr] 40 mg PO DAILY 02/22/15 [History] Insulin Aspart [Novolog Flexpen] 1 - 7 units SQ TIDMEALS PRN 02/22/15 [History] Insulin Detemir [Levemir Flextouch] 42 units SQ BEDTIME 02/22/15 [History] Losartan [Cozaar] 100 mg PO DAILY 02/22/15 [History] Metoprolol Tartrate 100 mg PO BID 02/22/15 [History] Budesonide/Formoterol [Symbicort 160-4.5 MCG] 2 puff IH BID 08/13/16 [History] Insulin Aspart [NovoLOG] 10 - 14 units SUBCUT TIDMEALS 08/13/16 [History] atorvaSTATin [Lipitor] 10 mg PO BEDTIME 08/13/16 [History] Albuterol Sulfate [Ventolin Hfa] 2 puff INH Q6H PRN 01/16/18 [History] Ibuprofen 800 mg PO DAILY PRN 01/16/18 [History] Tiotropium [Spiriva HandiHaler] 18 mcg INH DAILY 01/16/18 [History] Albuterol/Ipratropium [DuoNeb 3.0-0.5 MG/3 ML] 3 ml IH BID PRN 01/17/18 [History ] Aspirin [Ecotrin] 325 mg PO DAILY #30 tab.ec 01/17/18 [Rx] Codeine/guaiFENesin [Robitussin AC] 5 ml PO TID PRN 01/17/18 [History] amLODIPine Besylate [Amlodipine Besylate] 10 mg PO DAILY 01/17/18 [History] oxyCODONE HCl/Acetaminophen [Percocet 5-325 mg Tablet] 1 each PO TID #90 tablet 01/17/18 [Rx] Bacitracin [Bacitracin Oint] 1 ml TOP DAILY PRN tube 01/20/18 [Rx] Insulin Aspart [NovoLOG] 5 unit SUBCUT TIDMEALS pen 01/20/18 [Rx] Insulin Aspart [NovoLOG] See Protocol SUBCUT TIDMEALS pen 01/20/18 [Rx] Magnesium Hydroxide [Milk of Magnesia] 30 ml PO DAILY PRN cup 01/20/18 [Rx] Nicotine Polacrilex [Commit] 2 mg BUCCAL Q1H PRN abraham 01/20/18 [Rx] Patient Handouts: Bone and Joint Infections, Adult, Type 1 Diabetes Mellitus, Self Care, Adult, Venous Thromboembolism, Fall Prevention in Hospitals, Adult Forms: ED Department Discharge Referrals: Shey Christensen DUST COLLECTOR [Primary Care Provider] - Rico Giron DO [Physician] - - Discharge Summary/Plan Comment DC Time >30 min.: Yes - Patient Data Vitals - Most Recent: Last Vital Signs Temp 36.4 C 01/20/18 08:14 Pulse 76 01/20/18 11:03 Resp 18 01/20/18 08:14 BP 114/73 01/20/18 11:04 Pulse Ox 92 L 01/20/18 08:14 Weight - Most Recent: 103.691 kg I&O - Last 24 hours: Intake & Output 01/19/18 01/20/18 01/20/18 22:59 06:59 14:59 Intake Total 500 Output Total 1000 Balance -1000 500 Lab Results - Last 24 hrs: Laboratory Results - last 24 hr 01/19/18 01/19/18 01/20/18 Range/Units 17:07 20:30 05:22 WBC (4.5-12.0) X10-3/uL RBC (4.30-5.75) x10(6)uL Hgb (11.5-15.5) g/dL Hct (30.0-51.3) % MCV (80-96) fL MCH (27.7-33.6) pg MCHC (32.2-35.4) g/dL RDW (11.5-15.5) % Plt Count (125-369) X10(3)uL MPV (7.4-10.4) fL Neut % (Auto) (46-82) % Lymph % (Auto) (13-37) % [place] % (Auto) (4-12) % Eos % (Auto) (1.0-5.0) % Baso % (Auto) (0-2) % Neut # (Auto) (1.6-8.3) # Lymph # (Auto) (0.6-5.0) # [place] # (Auto) (0.0-1.3) # Eos # (Auto) (0.0-0.8) # Baso # (Auto) (0.0-0.2) # Sodium (135-145) mmol/L Potassium (3.5-5.3) mmol/L Chloride (100-110) mmol/L Carbon Dioxide (21-32) mmol/L BUN (7-18) mg/dL Creatinine (0.70-1.30) mg/dL Est Cr Clr Drug Dosing mL/min Estimated GFR (MDRD) (>60) BUN/Creatinine Ratio (9-20) Glucose (80-116) mg/dL POC Glucose 165 H 242 H 126 H D (80-116) mg/dL Calcium (8.6-10.2) mg/dL 01/20/18 01/20/18 01/20/18 Range/Units 06:35 06:35 11:12 WBC 11.6 (4.5-12.0) X10-3/uL RBC 4.02 L (4.30-5.75) x10(6)uL Hgb 13.3 (11.5-15.5) g/dL Hct 38.1 (30.0-51.3) % MCV 94.8 (80-96) fL MCH 33.0 (27.7-33.6) pg MCHC 34.9 (32.2-35.4) g/dL RDW 12.5 (11.5-15.5) % Plt Count 163 (125-369) X10(3)uL MPV 9.0 (7.4-10.4) fL Neut % (Auto) 78.4 (46-82) % Lymph % (Auto) 9.5 L (13-37) % [place] % (Auto) 7.2 (4-12) % Eos % (Auto) 4 (1.0-5.0) % Baso % (Auto) 1 (0-2) % Neut # (Auto) 9.1 H (1.6-8.3) # Lymph # (Auto) 1.1 (0.6-5.0) # [place] # (Auto) 0.8 (0.0-1.3) # Eos # (Auto) 0.5 (0.0-0.8) # Baso # (Auto) 0.1 (0.0-0.2) # Sodium 138 (135-145) mmol/L Potassium 3.3 L (3.5-5.3) mmol/L Chloride 102 (100-110) mmol/L Carbon Dioxide 30 (21-32) mmol/L BUN 12 (7-18) mg/dL Creatinine 0.9 (0.70-1.30) mg/dL Est Cr Clr Drug Dosing 83.72 mL/min Estimated GFR (MDRD) > 60 (>60) BUN/Creatinine Ratio 13.3 (9-20) Glucose 140 H (80-116) mg/dL POC Glucose 168 H (80-116) mg/dL Calcium 8.2 L (8.6-10.2) mg/dL Med Orders - Current: Current Medications Hydrocodone Bitart/Acetaminophen (Beebe 325-5 Mg) 2 tab PO Q3H PRN PRN Reason: pain > 5 Last Admin: 01/20/18 05:03 Dose: 2 tab Albuterol/Ipratropium (Duoneb 3.0-0.5 Mg/3 Ml) 3 ml INH BID PRN PRN Reason: Dyspnea Last Admin: 01/17/18 12:35 Dose: 3 ml Aspirin (Ecotrin) 325 mg PO DAILY [facility] Last Admin: 01/20/18 08:03 Dose: 325 mg Atorvastatin Calcium (Lipitor) 10 mg PO BEDTIME [facility] Last Admin: 01/19/18 20:33 Dose: 10 mg Bacitracin (Bacitracin Oint) 0 gm TOP TID PRN PRN Reason: skin abrasion Citalopram Hydrobromide (Celexa) 40 mg PO DAILY [facility] Last Admin: 01/20/18 08:03 Dose: 40 mg Enoxaparin Sodium (Lovenox) 40 mg SUBCUT Q24H [facility] Last Admin: 01/19/18 21:47 Dose: 40 mg Insulin Aspart (Novolog) 0 unit SUBCUT TIDMEALS [facility] PRN Reason: Protocol Last Admin: 01/20/18 12:24 Dose: 2 units Insulin Aspart (Novolog) 5 unit SUBCUT TIDMEALS [facility] Last Admin: 01/20/18 12:24 Dose: 5 units Insulin Detemir (Levemir) 42 unit SUBCUT BEDTIME [facility] Last Admin: 01/19/18 20:32 Dose: 42 unit Losartan Potassium (Cozaar) 50 mg PO DAILY [facility] Last Admin: 01/20/18 11:04 Dose: 50 mg Magnesium Hydroxide (Milk Of Magnesia) 30 ml PO DAILY PRN PRN Reason: Constipation Last Admin: 01/19/18 20:41 Dose: 30 ml Metoprolol Tartrate (Lopressor) 100 mg PO BID [facility] Last Admin: 01/20/18 11:03 Dose: 100 mg Mometasone Furoate/Formoterol Fumar (Dulera 200-5 Mcg) 0 puff IH BIDRT [facility] Last Admin: 01/20/18 06:12 Dose: 2 puff Morphine Sulfate (Morphine) 2 mg IVPUSH Q2H PRN PRN Reason: Pain (severe 7-10) Last Admin: 01/18/18 07:50 Dose: 2 mg Nicotine (Habitrol) 14 mg TRDERM DAILY@1230 [facility] Last Admin: 01/20/18 12:25 Dose: 14 mg Nicotine Polacrilex (Commit) 2 mg BUCCAL Q1H PRN PRN Reason: tobacco abuse Ondansetron HCl (Zofran) 4 mg IV Q4H PRN PRN Reason: Nausea/Vomiting Sodium Chloride (Saline Flush) 10 ml FLUSH ASDIRECTED PRN PRN Reason: Keep Vein Open Last Admin: 01/16/18 18:10 Dose: 10 ml Tiotropium [place] (Spiriva Handihaler) 18 mcg INH DAILY [facility] Last Admin: 01/20/18 08:03 Dose: 18 mcg Discontinued Medications Hydrocodone Bitart/Acetaminophen (Beebe 325-5 Mg) 1 tab PO Q3H PRN PRN Reason: pain > 5 Last Admin: 01/19/18 08:59 Dose: 1 tab Amlodipine Besylate (Norvasc) 5 mg PO DAILY [facility] Last Admin: 01/17/18 10:22 Dose: Not Given Amlodipine Besylate (Norvasc) 5 mg PO DAILY [facility] Last Admin: 01/18/18 09:24 Dose: 5 mg Amlodipine Besylate (Norvasc) 10 mg PO DAILY [facility] Last Admin: 01/19/18 11:00 Dose: 10 mg Amlodipine Besylate (Norvasc) 10 mg PO DAILY [facility] Sodium Chloride (Normal Saline) 1,000 mls @ 75 mls/hr IV ASDIRECTED [facility] Last Admin: 01/18/18 01:29 Dose: 75 mls/hr Cefazolin Sodium/Dextrose 2 gm (/ Premix) 50 mls @ 100 mls/hr IV ONETIME ONE Stop: 01/17/18 13:44 Last Admin: 01/17/18 13:28 Dose: 100 mls/hr Losartan Potassium (Cozaar) 100 mg PO DAILY [facility] Last Admin: 01/19/18 08:45 Dose: 100 mg Mometasone Furoate/Formoterol Fumar (Dulera 200-5 Mcg) 0 puff IH BIDRT [facility] Last Admin: 01/17/18 06:47 Dose: 2 puff Morphine Sulfate (Morphine) 4 mg IVPUSH ONETIME ONE Stop: 01/16/18 16:47 Last Admin: 01/16/18 17:10 Dose: 4 mg Morphine Sulfate (Morphine) 4 mg IVPUSH ONETIME ONE Stop: 01/16/18 18:06 Last Admin: 01/16/18 18:10 Dose: 4 mg Nicotine Polacrilex (Commit) 2 mg BUCCAL Q1H PRN PRN Reason: tobacco abuse Ondansetron HCl (Zofran) 4 mg IVPUSH ONETIME ONE Stop: 01/16/18 16:47 Last Admin: 01/16/18 17:10 Dose: 4 mg *Q Meaningful Use (DIS) - VTE *Q VTE Criteria *Q: - Stroke *Q Stroke Criteria *Q: - AMI *Q AMI Criteria *Q:
--- NOTE | 2018-02-07 15:05 | OR ---
DATE OF OPERATION: 01/17/2018 SURGEON: Rico Giron DO PREOPERATIVE DIAGNOSIS: Left tibial and fibular shaft fractures. POSTOPERATIVE DIAGNOSIS: Left tibial and fibular shaft fractures. PROCEDURE PERFORMED: Left tibial intramedullary nail. ANESTHESIA: Spinal plus conscious sedation. FLUIDS: Lactated Ringer's solution. ESTIMATED BLOOD LOSS: 100 mL. COMPLICATIONS: None. SPECIMENS: None. DISCHARGE DISPOSITION: Stable to PACU. HISTORY AND INDICATIONS FOR THE PROCEDURE: The patient was seen preoperatively in the emergency department. He was found to have the above-mentioned diagnosis. Preoperative imaging confirmed the above-mentioned diagnosis. Risks and benefits of the procedure were explained to the patient and his son, and informed consent was obtained. DETAILS OF PROCEDURE: The patient was seen preoperatively by myself, and the Anesthesia staff in the preoperative holding area, where the operative site was marked. He was brought to the operative suite by Anesthesia staff, where spinal anesthesia plus conscious sedation was administered. He was placed onto a regular surgical table. All extremities were found to be well padded. He was in supine position. A towel was placed under the left knee. The left lower extremity was then prepped and draped in a sterile manner, after a well- padded tourniquet was placed on the left thigh. A time-out was called identifying the correct patient, the correct procedure, the correct site, and that antibiotics had been begun within an appropriate period of time. An incision was made superior to the patella in the midline and extended for about 3 cm. It was then carried down to the bone. I then used my finger for blunt dissection down to the level of the tibial tubercle within the joint. I then used my tibial guide and under fluoroscopic visualization, obtained my starting point just medial to the lateral tibial spine and just distal to the anterior articular surface. I then put 2 pins in, to hold my guide intact. I then reamed the entry point and then removed part of my guide. I then measured the nail, which was 360 mm, that was after I placed the guidewire. I then sequentially reamed using flexible reamers and then inserted the tibial nail. I then used the outrigger guide and placed my proximal locking screws and then removed that guide and then took my final AP and lateral films proximally. Before I did that though, I placed my distal locking screw, using a perfect- [place] technique, and then tapped the nail slightly proximal to reduce the fracture, which I did nicely. I then placed my proximal locking screws. We then took final AP and lateral films and confirmed this was to be in good position. We then irrigated the joint with Betadine-infused irrigation multiple times and irrigated my distal wound and locking-screw wounds, and then closed the proximal incision in the quadriceps tendon with #1 STRATAFIX followed by skin viviane, followed by skin viviane in the remaining locking- screw hole incisions. We then placed a sterile dressing and then transferred the patient to the PACU in a stable condition. /[id number] OBI/MARIA LUISA GALINDO
--- NOTE | 2018-02-07 15:05 | OR ---
DATE OF OPERATION: 01/17/2018 SURGEON: Rico Giron DO PREOPERATIVE DIAGNOSIS: Left tibial and fibular shaft fractures. POSTOPERATIVE DIAGNOSIS: Left tibial and fibular shaft fractures. PROCEDURE PERFORMED: Left tibial intramedullary nail. ANESTHESIA: Spinal plus conscious sedation. FLUIDS: Lactated Ringer's solution. ESTIMATED BLOOD LOSS: 100 mL. COMPLICATIONS: None. SPECIMENS: None. DISCHARGE DISPOSITION: Stable to PACU. HISTORY AND INDICATIONS FOR THE PROCEDURE: The patient was seen preoperatively in the emergency department. He was found to have the above-mentioned diagnosis. Preoperative imaging confirmed the above-mentioned diagnosis. Risks and benefits of the procedure were explained to the patient and his son, and informed consent was obtained. DETAILS OF PROCEDURE: The patient was seen preoperatively by myself, and the Anesthesia staff in the preoperative holding area, where the operative site was marked. He was brought to the operative suite by Anesthesia staff, where spinal anesthesia plus conscious sedation was administered. He was placed onto a regular surgical table. All extremities were found to be well padded. He was in supine position. A towel was placed under the left knee. The left lower extremity was then prepped and draped in a sterile manner, after a well-padded tourniquet was placed on the left thigh. A time-out was called identifying the correct patient, the correct procedure, the correct site, and that antibiotics had been begun within an appropriate period of time. An incision was made superior to the patella in the midline and extended for about 3 cm. It was then carried down to the bone. I then used my finger for blunt dissection down to the level of the tibial tubercle within the joint. I then used my tibial guide and under fluoroscopic visualization, obtained my starting point just medial to the lateral tibial spine and just distal to the anterior articular surface. I then put 2 pins in, to hold my guide intact. I then reamed the entry point and then removed part of my guide. I then measured the nail, which was 360 mm, that was after I placed the guidewire. I then sequentially reamed using flexible reamers and then inserted the tibial nail. I then used the outrigger guide and placed my proximal locking screws and then removed that guide and then took my final AP and lateral films proximally. Before I did that though, I placed my distal locking screw, using a perfect-[employer] [place] [place] technique, and then tapped the nail slightly proximal to reduce the fracture, which I did nicely. I then placed my proximal locking screws. We then took final AP and lateral films and confirmed this was to be in good position. We then irrigated the joint with Betadine- infused irrigation multiple times and irrigated my distal wound and locking- screw wounds, and then closed the proximal incision in the quadriceps tendon with #1 STRATAFIX followed by skin viviane, followed by skin viviane in the remaining locking-screw hole incisions. We then placed a sterile dressing and then transferred the patient to the PACU in a stable condition. /[id number] OBI/MARIA LUISA
== END 2018-01-20 14:37 | disposition swing bed (61) | DRG 494 ==
LOC: FB.ED 16:41 → FB.MS 18:03
PROVIDERS: ADMIT Family Medicine; ATTEND Family Medicine
PROC: 0QSK36Z Reposition Left Fibula with Intramedullary Internal Fixation Device, Percutaneous Approach (ICD-10-PCS; principal; 2018-01-17)
PROC: 0QSH36Z Reposition Left Tibia with Intramedullary Internal Fixation Device, Percutaneous Approach (ICD-10-PCS; 2018-01-17)
DX: S82.392A Other fracture of lower end of left tibia, initial encounter for closed fracture (principal); S82.832A Other fracture of upper and lower end of left fibula, initial encounter for closed fracture; E86.0 Dehydration; I10 Essential (primary) hypertension; E11.9 Type 2 diabetes mellitus without complications; J44.9 Chronic obstructive pulmonary disease, unspecified; R79.89 Other specified abnormal findings of blood chemistry; F17.210 Nicotine dependence, cigarettes, uncomplicated; Z66 Do not resuscitate; W17.2XXA Fall into hole, initial encounter; Y92.007 Garden or yard of unspecified non-institutional (private) residence as the place of occurrence of the external cause; Z99.81 Dependence on supplemental oxygen; D72.829 Elevated white blood cell count, unspecified; E78.5 Hyperlipidemia, unspecified; I25.10 Atherosclerotic heart disease of native coronary artery without angina pectoris; F32.9 Major depressive disorder, single episode, unspecified; I25.2 Old myocardial infarction; H54.7 Unspecified visual loss; Z85.46 Personal history of malignant neoplasm of prostate; M19.90 Unspecified osteoarthritis, unspecified site; M54.9 Dorsalgia, unspecified; G89.29 Other chronic pain; Z79.82 Long term (current) use of aspirin; Z79.4 Long term (current) use of insulin; Z79.52 Long term (current) use of systemic steroids; Z88.2 Allergy status to sulfonamides; Z90.79 Acquired absence of other genital organ(s)
CPT/HCPCS: 29505; 36415; 71045; 71046; 73590-LT; 76000; 80048; 80053; 81001; 82962; 83880; 84484; 85025; 85610; 93005; 94150; 94640; 96374; 96375; 96376; 97161-GP; 99284; A9270-GY; C1713; C1776; J0690; J1650; J2250; J2270; J2405; J2704; J3010; J7040; J7050; J7120; J7620

== ENCOUNTER 2018-01-20 14:43 | Inpatient (IN) | payer MEDICARE, OTHER ==
[2018-01-20] MEDS ORDERED: Acetaminophen 325 MG Tab PO PRN (14:49)
[2018-01-20] MEDS ORDERED: Bacitracin Oint 15 GM Tube TOP PRN (14:58)
[2018-01-20] MEDS ORDERED: Nicotine Polacrilex 2 MG Loz Box BUCCAL PRN (14:58)
[2018-01-20] MEDS ORDERED: Albuterol 8 GM Inhaler INH PRN (14:58)
[2018-01-20] MEDS ORDERED: Magnesium Hydroxide 400 MG/5 ML Susp 30 ML Cup PO PRN (14:58)
--- NOTE | 2018-01-20 15:15 | PCM.HP ---
H&P History of Present Illness - General Date of Service: 01/20/18 Admit Problem/Dx: Admission Diagnosis/Problem Admission Diagnosis/Problem Fracture of tibia and fibula - History of Present Illness Initial Comments - Free Text/Narative: Patient is a 72-year-old male who was taking on a flat trailer and it was aborted missing. His foot went down into the lateral then he fell and fractured the mid shaft tibia and fibula. Patient did well with surgery and there were no complications on 01/17/18 but unfortunately following surgery he was unable to use crutches or a walker as he was too weak. Recommendation was made for swing bed to provide ongoing physical therapy and hopefully get the patient able to use a walker or crutches. - Related Data Allergies/Adverse Reactions: Allergies Allergy/AdvReac Type Severity Reaction Status Date / Time Sulfa (Sulfonamide Allergy Cannot Verified 01/16/18 18:32 Antibiotics) Remember Home Medications: Home Meds Aspirin 325 mg PO DAILY 02/22/15 [History] Citalopram [Citalopram HBr] 40 mg PO DAILY 02/22/15 [History] Insulin Aspart [Novolog Flexpen] 1 - 7 units SQ TIDMEALS PRN 02/22/15 [History] Insulin Detemir [Levemir Flextouch] 42 units SQ BEDTIME 02/22/15 [History] Losartan [Cozaar] 100 mg PO DAILY 02/22/15 [History] Metoprolol Tartrate 100 mg PO BID 02/22/15 [History] Budesonide/Formoterol [Symbicort 160-4.5 MCG] 2 puff IH BID 08/13/16 [History] Insulin Aspart [NovoLOG] 10 - 14 units SUBCUT TIDMEALS 08/13/16 [History] atorvaSTATin [Lipitor] 10 mg PO BEDTIME 08/13/16 [History] Albuterol Sulfate [Ventolin Hfa] 2 puff INH Q6H PRN 01/16/18 [History] Ibuprofen 800 mg PO DAILY PRN 01/16/18 [History] Tiotropium [Spiriva HandiHaler] 18 mcg INH DAILY 01/16/18 [History] Albuterol/Ipratropium [DuoNeb 3.0-0.5 MG/3 ML] 3 ml IH BID PRN 01/17/18 [History ] Aspirin [Ecotrin] 325 mg PO DAILY #30 tab.ec 01/17/18 [Rx] Codeine/guaiFENesin [Robitussin AC] 5 ml PO TID PRN 01/17/18 [History] amLODIPine Besylate [Amlodipine Besylate] 10 mg PO DAILY 01/17/18 [History] oxyCODONE HCl/Acetaminophen [Percocet 5-325 mg Tablet] 1 each PO TID #90 tablet 01/17/18 [Rx] Bacitracin [Bacitracin Oint] 1 ml TOP DAILY PRN tube 01/20/18 [Rx] Insulin Aspart [NovoLOG] 5 unit SUBCUT TIDMEALS pen 01/20/18 [Rx] Insulin Aspart [NovoLOG] See Protocol SUBCUT TIDMEALS pen 01/20/18 [Rx] Magnesium Hydroxide [Milk of Magnesia] 30 ml PO DAILY PRN cup 01/20/18 [Rx] Nicotine Polacrilex [Commit] 2 mg BUCCAL Q1H PRN abraham 01/20/18 [Rx] Past Medical History HEENT History: Reports: Impaired Vision Cardiovascular History: Reports: Hypertension, [place], SOB on Exertion Respiratory History: Reports: Bronchitis, Recurrent, COPD, SOB, Other (See Below ) Other Respiratory History: onetime Pneumonia Genitourinary History: Reports: Other (See Below) Other Genitourinary History: inguinal hernia Musculoskeletal History: Reports: Arthritis Endocrine/Metabolic History: Reports: Diabetes, Type II Oncologic (Cancer) History: Reports: Prostate - Infectious Disease History Infectious Disease History: Reports: Chicken Pox, Measles - Past Surgical History HEENT Surgical History: Reports: Cataract Surgery, Other (See Below) Other HEENT Surgeries/Procedures: both eyes Cardiovascular Surgical History: Reports: None GI Surgical History: Reports: Appendectomy Male Surgical History: Reports: Prostatectomy Endocrine Surgical History: Reports: None Musculoskeletal Surgical History: Reports: None Social & Family History - Family History Family Medical History: Noncontributory - Tobacco Use Smoking Status *Q: Current Every Day Smoker Years of Tobacco use: 65 Packs/Tins Daily: 0.5 Used Tobacco, but Quit: Yes Month/Year Tobacco Last Used: today Second Hand Smoke Exposure: Yes - Caffeine Use Caffeine Use: Reports: Coffee Other Caffeine Use: 6-7 cups a day - Alcohol Use Days Per Week of Alcohol Use: 0 - Recreational Drug Use Recreational Drug Use: No - Living Situation & Occupation Living situation: Reports: , Alone Occupation: Retired H&P Review of Systems - Review of Systems: Review Of Systems: ROS reveals no pertinent complaints other than HPI. Exam - Exam Exam: See Below (Please see my progress note from the same date from previous admission for physical exam on day of discharge.) *Q Meaningful Use (ADM) - VTE *Q VTE Criteria *Q: - Stroke *Q Stroke Criteria *Q: - AMI *Q AMI Criteria *Q: - Problem List (1) Fracture of left tibia and fibula SNOMED Code(s): 35854208 ICD Code: S82.202A - UNSP FRACTURE OF SHAFT OF LEFT TIBIA, INIT FOR CLOS FX; S82.402A - UNSP FRACTURE OF SHAFT OF LEFT FIBULA, INIT FOR CLOS FX Status: Acute Current Visit: No Problem Details: Day 1 Swingbed. Surgery on . Pain is well controlled. Pain medication increased as above. Continue mobilization as possible. Patient requires at least the assist of one. Is a good candidate for swing bed or rehabilitation placement until he is able to mobilize independently. Continue Jack wraps when up in the chair to decrease swelling in the leg and remove when in bed to prevent skin injury. Qualifiers: (2) COPD (chronic obstructive pulmonary disease) SNOMED Code(s): 09538653 ICD Code: J44.9 - CHRONIC OBSTRUCTIVE PULMONARY DISEASE, UNSPECIFIED Status : Acute Current Visit: No Problem Details: Continue oxygen and breathing treatments. (3) Diabetes mellitus SNOMED Code(s): 26172198 ICD Code: E11.9 - TYPE 2 DIABETES MELLITUS WITHOUT COMPLICATIONS Status: Acute Current Visit: No Problem Details: Currently on sliding scale NovoLog and Levemir usual dose, 5 units NovoLog with meals half the patient's usual dose. Blood sugars have improved. Will monitor at the same dose today. (4) Leucocytosis SNOMED Code(s): 560807442 ICD Code: D72.829 - ELEVATED WHITE BLOOD CELL COUNT, UNSPECIFIED Status: Acute Current Visit: No Problem Details: Continues to improve. Continue to monitor. (5) Tobacco abuse SNOMED Code(s): 617122486 ICD Code: Z72.0 - TOBACCO USE Status: Acute Current Visit: No Problem Details: Patch and nicotine replacement. Encouraged to quit. (6) Type 2 diabetes mellitus SNOMED Code(s): 43814329 ICD Code: E11.9 - TYPE 2 DIABETES MELLITUS WITHOUT COMPLICATIONS Status: Chronic Current Visit: No Problem Details: Currently on sliding scale NovoLog and Levemir usual dose, 5 units NovoLog with meals half the patient's usual dose. Blood sugars have improved. Continue reduced dose. (7) HTN (hypertension), benign SNOMED Code(s): 95794405 ICD Code: I10 - ESSENTIAL (PRIMARY) HYPERTENSION Status: Acute Current Visit: No Problem Details: Stable. Continue home meds. Patient was normotensive in bed but when he got up to the chair this morning his blood pressure dropped into the 90s systolic, although he was asymptomatic. This is before he received his morning meds. We are going to go ahead and give him his metoprolol when his pressure is above 110 systolic, recommended discontinuing amlodipine for the time being and we will decrease losartan to 50 mg daily until we see his pressure rebound. Since the patient has stopped smoking since he is in the hospital, it's possible his needs will decrease for antihypertensives. Problem List Initiated/Reviewed/Updated: Yes Orders Last 24hrs: Active Orders 24 hr Category Date Time Status Patient Status [ADT] Routine ADT 01/20/18 14:50 Ordered Dietary Supplements [RC] QIDACANDBED Care 01/20/18 14:49 Ordered Height and Weight [RC] WEEKLY Care 01/20/18 14:50 Ordered IS (RT) [RT Incentive Spirometry] [RC] Q2HWA Care 01/20/18 14:56 Ordered Oxygen Therapy Adult [Oxygen Therapy] [RC] ASDIRECTED Care 01/20/18 14:47 Active Oxygen Therapy [RC] PRN Care 01/20/18 14:50 Ordered RT Aerosol Therapy [RC] ASDIRECTED Care 01/20/18 15:06 Ordered Up With Assistance [RC] ASDIRECTED Care 01/20/18 14:49 Ordered VTE/DVT Education [RC] Per Unit Routine Care 01/20/18 14:50 Ordered Vital Signs [RC] PER UNIT ROUTINE Care 01/20/18 14:50 Ordered OT Evaluation and Treatment [CONS] Routine Cons 01/20/18 14:49 Ordered PT Evaluation and Treatment [CONS] Routine Cons 01/20/18 14:49 Ordered Consistent Carbohydrate Diet [DIET] Diet 01/20/18 Breakfast Ordered BASIC METABOLIC PANEL,BMP [CHEM] AM Lab 01/21/18 05:11 Ordered CBC WITH AUTO DIFF [HEME] AM Lab 01/21/18 05:11 Ordered Acetaminophen [Tylenol] Med 01/20/18 14:49 Ordered 650 mg PO Q4H PRN Acetaminophen/HYDROcodone [[place] 325-5 MG] Med 01/20/18 15:04 Ordered 2 tab PO Q3H PRN Albuterol [Ventolin HFA] Med 01/20/18 14:58 Ordered 2 puff INH Q6H PRN Albuterol/Ipratropium [DuoNeb 3.0-0.5 MG/3 ML] Med 01/20/18 16:00 Ordered 3 ml NEB QIDRT Bacitracin [Bacitracin Oint] Med 01/20/18 14:58 Ordered 1 ml TOP DAILY PRN Budesonide/Formoterol [Symbicort 160-4.5 MCG] Med 01/20/18 21:00 Ordered 2 puff IH BID Citalopram [Celexa] Med 01/21/18 09:00 Ordered 40 mg PO DAILY Enoxaparin [Lovenox] Med 01/20/18 20:00 Ordered 40 mg SUBCUT Q24H Insulin Aspart [NovoLOG] Med 01/20/18 18:00 Ordered 5 unit SUBCUT TIDMEALS Insulin Aspart [NovoLOG] Med 01/20/18 18:00 Ordered See Protocol SUBCUT TIDMEALS Insulin Detemir [Levemir] Med 01/20/18 21:00 Ordered 42 unit SUBCUT BEDTIME Losartan [Cozaar] Med 01/21/18 09:00 Ordered 50 mg PO DAILY Magnesium Hydroxide [Milk of Magnesia] Med 01/20/18 14:58 Ordered 30 ml PO DAILY PRN Metoprolol Tartrate [Lopressor] Med 01/20/18 21:00 Ordered 100 mg PO BID Nicotine Polacrilex [Commit] Med 01/20/18 14:58 Ordered 2 mg BUCCAL Q1H PRN Nicotine [Habitrol] Med 01/21/18 12:30 Ordered 14 mg TRDERM DAILY Tiotropium [Spiriva HandiHaler] Med 01/21/18 09:00 Ordered 18 mcg INH DAILY atorvaSTATin [Lipitor] Med 01/20/18 21:00 Ordered 10 mg PO BEDTIME Resuscitation Status Routine Resus Stat 01/20/18 14:49 Ordered Medication Orders Acetaminophen (Tylenol) 650 mg PO Q4H PRN PRN Reason: Pain (Mild 1-3)/fever Hydrocodone Bitart/Acetaminophen ([place] 325-5 Mg) 2 tab PO Q3H PRN PRN Reason: pain > 5 Albuterol (Ventolin Hfa) gm INH Q6H PRN PRN Reason: Dyspnea Albuterol/Ipratropium (Duoneb 3.0-0.5 Mg/3 Ml) 3 ml NEB QIDRT [facility] Atorvastatin Calcium (Lipitor) 10 mg PO BEDTIME [facility] Bacitracin (Bacitracin Oint) gm TOP DAILY PRN PRN Reason: skin abrasion Citalopram Hydrobromide (Celexa) 40 mg PO DAILY [facility] Enoxaparin Sodium (Lovenox) 40 mg SUBCUT Q24H [facility] Insulin Aspart (Novolog) 0 unit SUBCUT TIDMEALS [place]IRK PRN Reason: Protocol Insulin Aspart (Novolog) 5 unit SUBCUT TIDMEALS [facility] Insulin Detemir (Levemir) 42 unit SUBCUT BEDTIME [facility] Losartan Potassium (Cozaar) 50 mg PO DAILY [facility] Magnesium Hydroxide (Milk Of Magnesia) 30 ml PO DAILY PRN PRN Reason: Constipation Metoprolol Tartrate (Lopressor) 100 mg PO BID [facility] Nicotine (Habitrol) 14 mg TRDERM DAILY [facility] Nicotine Polacrilex (Commit) 2 mg BUCCAL Q1H PRN PRN Reason: tobacco abuse Non-Formulary Medication (Budesonide/Formoterol [Symbicort 160-4.5 Mcg]) 2 puff IH BID [facility] Tiotropium [place] (Spiriva Handihaler) 18 mcg INH DAILY [facility]
[2018-01-20] MEDS: Albuterol/Ipratropium 3.0-0.5 MG/3 ML Neb Soln NEB SCH ×2 (15:37→20:28)
[2018-01-20] MEDS: Acetaminophen/HYDROcodone 325-5 MG Tab PO PRN (16:34)
[2018-01-20] MEDS: Insulin Aspart 100 Units/ML 3 ML Pen SUBCUT SCH ×2 (17:31→17:33)
[2018-01-20] MEDS: Enoxaparin 40 MG/0.4 ML Syringe SUBCUT SCH (20:27)
[2018-01-20] MEDS: Formoterol/Mometasone 200-5 MCG 8.8 GM Inhaler IH SCH (20:27)
[2018-01-20] MEDS: atorvaSTATin 10 MG Tab PO SCH (20:29)
[2018-01-20] MEDS: Metoprolol Tartrate 100 MG Tab PO SCH (20:29)
[2018-01-20] MEDS: Insulin Detemir 100 Units/ML 3 ML Pen SUBCUT SCH (20:42)
[2018-01-21] MEDS: Acetaminophen/HYDROcodone 325-5 MG Tab PO PRN ×2 (02:46→14:41)
[2018-01-21] MEDS: Albuterol/Ipratropium 3.0-0.5 MG/3 ML Neb Soln NEB SCH ×4 (07:15→20:50)
[2018-01-21] MEDS: Formoterol/Mometasone 200-5 MCG 8.8 GM Inhaler IH SCH ×2 (08:19→20:50)
[2018-01-21] MEDS: Insulin Aspart 100 Units/ML 3 ML Pen SUBCUT SCH ×6 (08:20→18:33)
[2018-01-21] MEDS: Tiotropium Inhaler 18 MCG Inhalation Powder Cap Kit of 5 INH SCH (08:21)
[2018-01-21] MEDS ORDERED: Docusate Sodium 100 MG Cap PO PRN (08:28)
[2018-01-21] MEDS: Losartan 50 MG Tab PO SCH (08:51)
[2018-01-21] MEDS: Metoprolol Tartrate 100 MG Tab PO SCH (08:52)
--- NOTE | 2018-01-21 09:40 | PCM.SN ---
- Free Text/Narrative Note: ON 01/17/18 USED ZOFRAN 4MG IV
[2018-01-21] MEDS: Nicotine 14 MG/24 Hr Patch TRDERM SCH (12:02)
--- NOTE | 2018-01-21 17:05 | PCM.PN ---
- General Info Date of Service: 01/21/18 Subjective Update: Patient is a 72-year-old male currently on swing bed day #2 for physical therapy after left fibula/fibula fracture. Doing well. No complaints today. No chest pain, no shortness of breath. Pain is well controlled. No nausea, no vomiting, no diarrhea. Had a bowel movement. Blood sugars have been better- controlled. - Patient Data Vitals - Most Recent: Last Vital Signs Temp 36.3 C 01/21/18 08:10 Pulse 88 01/21/18 16:01 Resp 18 01/21/18 08:10 BP 112/76 01/21/18 08:52 Pulse Ox 92 L 01/21/18 16:01 Weight - Most Recent: 110.677 kg Lab Results Last 24 Hours: Laboratory Results - last 24 hr 01/20/18 01/20/18 01/21/18 Range/Units 17:27 20:41 06:15 WBC 10.7 (4.5-12.0) X10-3/uL RBC 3.96 L (4.30-5.75) x10(6)uL Hgb 13.2 (11.5-15.5) g/dL Hct 37.7 (30.0-51.3) % MCV 95.2 (80-96) fL MCH 33.3 (27.7-33.6) pg MCHC 35.0 (32.2-35.4) g/dL RDW 12.8 (11.5-15.5) % Plt Count 189 (125-369) X10(3)uL MPV 8.6 (7.4-10.4) fL Neut % (Auto) 76.8 (46-82) % Lymph % (Auto) 9.9 L (13-37) % [place]son % (Auto) 7.7 (4-12) % Eos % (Auto) 5 (1.0-5.0) % Baso % (Auto) 0 (0-2) % Neut # (Auto) 8.2 (1.6-8.3) # Lymph # (Auto) 1.1 (0.6-5.0) # Anson # (Auto) 0.8 (0.0-1.3) # Eos # (Auto) 0.6 (0.0-0.8) # Baso # (Auto) 0.0 (0.0-0.2) # Sodium (135-145) mmol/L Potassium (3.5-5.3) mmol/L Chloride (100-110) mmol/L Carbon Dioxide (21-32) mmol/L BUN (7-18) mg/dL Creatinine (0.70-1.30) mg/dL Est Cr Clr Drug Dosing mL/min Estimated GFR (MDRD) (>60) BUN/Creatinine Ratio (9-20) Glucose (80-116) mg/dL POC Glucose 168 H 210 H (80-116) mg/dL Calcium (8.6-10.2) mg/dL 01/21/18 01/21/18 01/21/18 Range/Units 06:15 06:15 11:43 WBC (4.5-12.0) X10-3/uL RBC (4.30-5.75) x10(6)uL Hgb (11.5-15.5) g/dL Hct (30.0-51.3) % MCV (80-96) fL MCH (27.7-33.6) pg MCHC (32.2-35.4) g/dL RDW (11.5-15.5) % Plt Count (125-369) X10(3)uL MPV (7.4-10.4) fL Neut % (Auto) (46-82) % Lymph % (Auto) (13-37) % [place]son % (Auto) (4-12) % Eos % (Auto) (1.0-5.0) % Baso % (Auto) (0-2) % Neut # (Auto) (1.6-8.3) # Lymph # (Auto) (0.6-5.0) # Anson # (Auto) (0.0-1.3) # Eos # (Auto) (0.0-0.8) # Baso # (Auto) (0.0-0.2) # Sodium 140 (135-145) mmol/L Potassium 3.6 (3.5-5.3) mmol/L Chloride 102 (100-110) mmol/L Carbon Dioxide 31 (21-32) mmol/L BUN 13 (7-18) mg/dL Creatinine 1.0 (0.70-1.30) mg/dL Est Cr Clr Drug Dosing 75.35 mL/min Estimated GFR (MDRD) > 60 (>60) BUN/Creatinine Ratio 13.0 (9-20) Glucose 122 H (80-116) mg/dL POC Glucose 105 D 170 H (80-116) mg/dL Calcium 8.4 L (8.6-10.2) mg/dL Med Orders - Current: Current Medications Acetaminophen (Tylenol) 650 mg PO Q4H PRN PRN Reason: Pain (Mild 1-3)/fever Hydrocodone Bitart/Acetaminophen ([place] 325-5 Mg) 2 tab PO Q3H PRN PRN Reason: pain > 5 Last Admin: 01/21/18 14:41 Dose: 2 tab Albuterol (Ventolin Hfa) 0 gm INH Q6H PRN PRN Reason: Dyspnea Albuterol/Ipratropium (Duoneb 3.0-0.5 Mg/3 Ml) 3 ml NEB QIDRT [facility] Last Admin: 01/21/18 15:21 Dose: 3 ml Atorvastatin Calcium (Lipitor) 10 mg PO BEDTIME [facility] Last Admin: 01/20/18 20:29 Dose: 10 mg Bacitracin (Bacitracin Oint) 0 gm TOP DAILY PRN PRN Reason: skin abrasion Citalopram Hydrobromide (Celexa) 40 mg PO DAILY [facility] Last Admin: 01/21/18 08:19 Dose: 40 mg Docusate Sodium (Colace) 100 mg PO BID PRN PRN Reason: Constipation Last Admin: 01/21/18 08:50 Dose: 100 mg Enoxaparin Sodium (Lovenox) 40 mg SUBCUT Q24H [facility] Last Admin: 01/20/18 20:27 Dose: 40 mg Insulin Aspart (Novolog) 0 unit SUBCUT TIDMEALS [facility] PRN Reason: Protocol Last Admin: 01/21/18 12:02 Dose: 2 units Insulin Aspart (Novolog) 5 unit SUBCUT TIDMEALS [facility] Last Admin: 01/21/18 12:02 Dose: 5 units Insulin Detemir (Levemir) 42 unit SUBCUT BEDTIME [facility] Last Admin: 01/20/18 20:42 Dose: 42 unit Losartan Potassium (Cozaar) 50 mg PO DAILY [facility] Last Admin: 01/21/18 08:51 Dose: 50 mg Magnesium Hydroxide (Milk Of Magnesia) 30 ml PO DAILY PRN PRN Reason: Constipation Last Admin: 01/21/18 02:49 Dose: 30 ml Metoprolol Tartrate (Lopressor) 100 mg PO BID [facility] Last Admin: 01/21/18 08:52 Dose: 100 mg Mometasone Furoate/Formoterol Fumar (Dulera 200-5 Mcg) 2 puff IH BID [facility] Last Admin: 01/21/18 08:19 Dose: 2 puff Nicotine (Habitrol) 14 mg TRDERM DAILY [facility] Last Admin: 01/21/18 12:02 Dose: 14 mg Nicotine Polacrilex (Commit) 2 mg BUCCAL Q1H PRN PRN Reason: tobacco abuse Tiotropium [place] (Spiriva Handihaler) 18 mcg INH DAILY [facility] Last Admin: 01/21/18 08:21 Dose: 18 mcg - Exam General: Alert, Oriented, Cooperative, No Acute Distress HEENT: Pupils Equal, Pupils Reactive Neck: Supple Lungs: Clear to Auscultation, Normal Respiratory Effort Cardiovascular: Regular Rate, Regular Rhythm, No Murmurs GI/Abdominal Exam: Normal Bowel Sounds, Soft, Non-Tender, No Distention Back Exam: Normal Inspection Extremities: Pedal Edema (Much improved with Jack wrap. I did not remove the dressing to look at the incisions.) Psy/Mental Status: Alert, Normal Affect, Normal Mood - Problem List & Annotations (1) Fracture of left tibia and fibula SNOMED Code(s): 34852734 Code(s): S82.202A - UNSP FRACTURE OF SHAFT OF LEFT TIBIA, INIT FOR CLOS FX; S82.402A - UNSP FRACTURE OF SHAFT OF LEFT FIBULA, INIT FOR CLOS FX Status: Acute Current Visit: No Qualifiers: Annotation/Comment:: Day 2 Swingbed. Surgery on 01/17/18. Pain well controlled. Continue PT/OT. (2) COPD (chronic obstructive pulmonary disease) SNOMED Code(s): 35266282 Code(s): J44.9 - CHRONIC OBSTRUCTIVE PULMONARY DISEASE, UNSPECIFIED Status : Acute Current Visit: No Annotation/Comment:: Continue oxygen and breathing treatments. (3) Diabetes mellitus SNOMED Code(s): 63185426 Code(s): E11.9 - TYPE 2 DIABETES MELLITUS WITHOUT COMPLICATIONS Status: Acute Current Visit: No Annotation/Comment:: Currently on sliding scale NovoLog and Levemir usual dose, 5 units NovoLog with meals half the patient's usual dose. Blood sugars have improved. Will monitor at the same dose today. (4) Leucocytosis SNOMED Code(s): 323328161 Code(s): D72.829 - ELEVATED WHITE BLOOD CELL COUNT, UNSPECIFIED Status: Acute Current Visit: No Annotation/Comment:: Continues to improve. Continue to monitor. (5) Tobacco abuse SNOMED Code(s): 058485851 Code(s): Z72.0 - TOBACCO USE Status: Acute Current Visit: No Annotation /Comment:: Patch and nicotine replacement. Encouraged to quit. (6) Type 2 diabetes mellitus SNOMED Code(s): 78092008 Code(s): E11.9 - TYPE 2 DIABETES MELLITUS WITHOUT COMPLICATIONS Status: Chronic Current Visit: No Annotation/Comment:: Currently on sliding scale NovoLog and Levemir usual dose, 5 units NovoLog with meals half the patient's usual dose. Blood sugars have improved. Continue reduced dose. (7) HTN (hypertension), benign SNOMED Code(s): 62367536 Code(s): I10 - ESSENTIAL (PRIMARY) HYPERTENSION Status: Acute Current Visit: No Annotation/Comment:: Continues to be normotensive without meds. I will decrease BB in half today. - Problem List Review Problem List Initiated/Reviewed/Updated: Yes - My Orders Last 24 Hours: My Active Orders 01/20/18 16:00 Albuterol/Ipratropium [DuoNeb 3.0-0.5 MG/3 ML] 3 ml NEB QIDRT 01/20/18 18:00 Insulin Aspart [NovoLOG] 5 unit SUBCUT TIDMEALS Insulin Aspart [NovoLOG] See Protocol SUBCUT TIDMEALS 01/20/18 20:00 Enoxaparin [Lovenox] 40 mg SUBCUT Q24H 01/20/18 21:00 Insulin Detemir [Levemir] 42 unit SUBCUT BEDTIME Metoprolol Tartrate [Lopressor] 100 mg PO BID Mometasone/Formoterol [Dulera 200-5 MCG] 2 puff IH BID atorvaSTATin [Lipitor] 10 mg PO BEDTIME 01/21/18 08:28 Docusate Sodium [Colace] 100 mg PO BID PRN 01/21/18 09:00 Citalopram [Celexa] 40 mg PO DAILY Losartan [Cozaar] 50 mg PO DAILY Tiotropium [Spiriva HandiHaler] 18 mcg INH DAILY 01/21/18 12:30 Nicotine [Habitrol] 14 mg TRDERM DAILY
[2018-01-21] MEDS: Insulin Detemir 100 Units/ML 3 ML Pen SUBCUT SCH (20:50)
[2018-01-21] MEDS: Enoxaparin 40 MG/0.4 ML Syringe SUBCUT SCH (20:50)
[2018-01-21] MEDS: atorvaSTATin 10 MG Tab PO SCH (20:53)
[2018-01-21] MEDS: Metoprolol Tartrate 50 MG Tab PO SCH (20:58)
[2018-01-22] MEDS: Acetaminophen/HYDROcodone 325-5 MG Tab PO PRN ×4 (01:18→20:37)
[2018-01-22] MEDS: Albuterol/Ipratropium 3.0-0.5 MG/3 ML Neb Soln NEB SCH ×2 (07:28→11:19)
[2018-01-22] MEDS: Insulin Aspart 100 Units/ML 3 ML Pen SUBCUT SCH ×6 (08:03→18:39)
[2018-01-22] MEDS: Losartan 50 MG Tab PO SCH (08:16)
[2018-01-22] MEDS: Tiotropium Inhaler 18 MCG Inhalation Powder Cap Kit of 5 INH SCH (08:20)
[2018-01-22] MEDS: Formoterol/Mometasone 200-5 MCG 8.8 GM Inhaler IH SCH ×2 (08:20→20:44)
[2018-01-22] MEDS: Nicotine 14 MG/24 Hr Patch TRDERM SCH (08:21)
[2018-01-22] MEDS: Metoprolol Tartrate 50 MG Tab PO SCH ×2 (08:40→20:44)
--- NOTE | 2018-01-22 08:40 | PCM.SN ---
- Free Text/Narrative Note: Patient is a 72-year-old male status post open reduction internal fixation of a left tibia/fibula fracture. Doing well, no concerns. Blood sugars have been all under 200. I am going to increase his NovoLog with meals up to 7 units and see if he tolerates this. Blood pressures have rebounded so increase losartan back to 100 mg daily. Amlodipine may still need to be re-added. I'm going to keep his beta seth at 50 mg for the time being.
[2018-01-22] MEDS ORDERED: Losartan 50 MG Tab PO ONE (08:45)
[2018-01-22] MEDS ORDERED: Albuterol/Ipratropium 3.0-0.5 MG/3 ML Neb Soln NEB PRN (13:08)
[2018-01-22] MEDS: Insulin Detemir 100 Units/ML 3 ML Pen SUBCUT SCH (20:42)
[2018-01-22] MEDS: Enoxaparin 40 MG/0.4 ML Syringe SUBCUT SCH (20:43)
[2018-01-22] MEDS: atorvaSTATin 10 MG Tab PO SCH (20:44)
[2018-01-23] MEDS: Acetaminophen/HYDROcodone 325-5 MG Tab PO PRN ×4 (01:08→20:25)
[2018-01-23] MEDS: Insulin Aspart 100 Units/ML 3 ML Pen SUBCUT SCH ×6 (07:51→18:54)
[2018-01-23] MEDS: Losartan 100 MG Tab PO SCH (08:09)
[2018-01-23] MEDS: Formoterol/Mometasone 200-5 MCG 8.8 GM Inhaler IH SCH ×2 (08:10→20:21)
[2018-01-23] MEDS: Metoprolol Tartrate 50 MG Tab PO SCH (08:10)
[2018-01-23] MEDS: Nicotine 14 MG/24 Hr Patch TRDERM SCH (08:10)
[2018-01-23] MEDS: Tiotropium Inhaler 18 MCG Inhalation Powder Cap Kit of 5 INH SCH (08:11)
[2018-01-23] MEDS ORDERED: Metoprolol Tartrate 50 MG Tab PO ONE (08:45)
[2018-01-23] MEDS ORDERED: Metoprolol Tartrate 100 MG Tab PO SCH (09:00)
[2018-01-23] MEDS ORDERED: Tiotropium Inhaler 18 MCG Inhalation Powder Cap Kit of 5 INH SCH (09:00)
--- NOTE | 2018-01-23 14:10 | PCM.PN ---
- General Info Date of Service: 01/23/18 Subjective Update: Patient is a 72-year-old male currently on swing bed day #4 for left tib-fib fracture with open reduction internal fixation. Patient was admitted on 01/16/18 and went to the OR on 01/17/18 and was discharged to swing bed on 01/20/18. Tomorrow, no complaints. Also will be able to go for a home visit this weekend to see if he can manage without weightbearing on that left foot. He has been struggling with not doing toe-touch when he ambulates with a walker. Has had no low blood sugars. No chest pain or shortness of breath. On 2 L oxygen at baseline. No nausea, vomiting, diarrhea. Bowels are moving regularly. - Patient Data Vitals - Most Recent: Last Vital Signs Temp 37.1 C 01/23/18 08:00 Pulse 80 01/23/18 09:45 Resp 18 01/23/18 08:00 BP 134/89 01/23/18 09:45 Pulse Ox 91 L 01/23/18 08:00 Weight - Most Recent: 109.826 kg Lab Results Last 24 Hours: Laboratory Results - last 24 hr 01/22/18 01/22/18 01/23/18 Range/Units 17:05 20:39 05:33 POC Glucose 176 H 201 H 125 H (80-116) mg/dL 01/23/18 Range/Units 11:31 POC Glucose 138 H (80-116) mg/dL Med Orders - Current: Current Medications Acetaminophen (Tylenol) 650 mg PO Q4H PRN PRN Reason: Pain (Mild 1-3)/fever Hydrocodone Bitart/Acetaminophen ([place] 325-5 Mg) 2 tab PO Q3H PRN PRN Reason: pain > 5 Last Admin: 01/23/18 13:18 Dose: 2 tab Albuterol (Ventolin Hfa) 0 gm INH Q6H PRN PRN Reason: Dyspnea Albuterol/Ipratropium (Duoneb 3.0-0.5 Mg/3 Ml) 3 ml NEB QIDRT PRN PRN Reason: Shortness of Breath Atorvastatin Calcium (Lipitor) 10 mg PO BEDTIME [facility] Last Admin: 01/22/18 20:44 Dose: 10 mg Bacitracin (Bacitracin Oint) 0 gm TOP DAILY PRN PRN Reason: skin abrasion Citalopram Hydrobromide (Celexa) 40 mg PO DAILY [facility] Last Admin: 01/23/18 08:09 Dose: 40 mg Docusate Sodium (Colace) 100 mg PO BID PRN PRN Reason: Constipation Last Admin: 01/21/18 08:50 Dose: 100 mg Enoxaparin Sodium (Lovenox) 40 mg SUBCUT Q24H [facility] Last Admin: 01/22/18 20:43 Dose: 40 mg Insulin Aspart (Novolog) 0 unit SUBCUT TIDMEALS [place] PRN Reason: Protocol Last Admin: 01/23/18 11:34 Dose: Not Given Insulin Aspart (Novolog) 7 unit SUBCUT TIDMEALS [facility] Last Admin: 01/23/18 11:33 Dose: 7 units Insulin Detemir (Levemir) 42 unit SUBCUT BEDTIME [facility] Last Admin: 01/22/18 20:42 Dose: 42 unit Losartan Potassium (Cozaar) 100 mg PO DAILY [facility] Last Admin: 01/23/18 08:09 Dose: 100 mg Magnesium Hydroxide (Milk Of Magnesia) 30 ml PO DAILY PRN PRN Reason: Constipation Last Admin: 01/21/18 02:49 Dose: 30 ml Metoprolol Tartrate (Lopressor) 100 mg PO BID [facility] Mometasone Furoate/Formoterol Fumar (Dulera 200-5 Mcg) 2 puff IH BID [facility] Last Admin: 01/23/18 08:10 Dose: 2 puff Nicotine (Habitrol) 14 mg TRDERM DAILY [facility] Last Admin: 01/23/18 08:10 Dose: 14 mg Nicotine Polacrilex (Commit) 2 mg BUCCAL Q1H PRN PRN Reason: tobacco abuse Tiotropium [place] (Spiriva Handihaler) 18 mcg INH DAILY [facility] Last Admin: 01/23/18 08:11 Dose: 18 mcg Discontinued Medications Albuterol/Ipratropium (Duoneb 3.0-0.5 Mg/3 Ml) 3 ml NEB QIDRT [facility] Last Admin: 01/22/18 11:19 Dose: 3 ml Insulin Aspart (Novolog) 5 unit SUBCUT TIDMEALS [facility] Last Admin: 01/22/18 08:06 Dose: 5 units Losartan Potassium (Cozaar) 50 mg PO DAILY [facility] Last Admin: 03/21/18 08:16 Dose: 50 mg Losartan Potassium (Cozaar) 50 mg PO ONETIME ONE Stop: 01/22/18 08:46 Last Admin: 01/22/18 09:15 Dose: 50 mg Metoprolol Tartrate (Lopressor) 100 mg PO BID [facility] Last Admin: 01/21/18 08:52 Dose: 100 mg Metoprolol Tartrate (Lopressor) 50 mg PO BID [facility] Last Admin: 01/23/18 08:10 Dose: 50 mg Metoprolol Tartrate (Lopressor) 50 mg PO ONETIME ONE Stop: 01/23/18 08:46 Last Admin: 01/23/18 09:45 Dose: 50 mg - Exam Quality Assessment: Supplemental Oxygen General: Alert, Oriented, Cooperative, No Acute Distress HEENT: Pupils Equal, Pupils Reactive Neck: Supple Lungs: Clear to Auscultation, Normal Respiratory Effort Cardiovascular: Regular Rate, Regular Rhythm, No Murmurs GI/Abdominal Exam: Normal Bowel Sounds, Soft, Non-Tender, No Distention Extremities: Pedal Edema (Trace on the right, the left is wrapped in an Jack wrap.) Psy/Mental Status: Alert - Problem List & Annotations (1) Fracture of left tibia and fibula SNOMED Code(s): 65518872 Code(s): S82.202A - UNSP FRACTURE OF SHAFT OF LEFT TIBIA, INIT FOR CLOS FX; S82.402A - UNSP FRACTURE OF SHAFT OF LEFT FIBULA, INIT FOR CLOS FX Status: Acute Current Visit: No Qualifiers: Annotation/Comment:: Day #4 Swingbed. Surgery on 01/17/18. Pain well controlled. Continue PT/OT. Possible home visit this weekend. (2) COPD (chronic obstructive pulmonary disease) SNOMED Code(s): 46600642 Code(s): J44.9 - CHRONIC OBSTRUCTIVE PULMONARY DISEASE, UNSPECIFIED Status : Acute Current Visit: No Annotation/Comment:: Stable. Continue oxygen and breathing treatments. (3) Diabetes mellitus SNOMED Code(s): 62179791 Code(s): E11.9 - TYPE 2 DIABETES MELLITUS WITHOUT COMPLICATIONS Status: Acute Current Visit: No Annotation/Comment:: Currently on sliding scale NovoLog and Levemir usual dose, 7 units NovoLog with meals still decreased from patient's usual home dose of 10 units. Blood sugars have improved. No lows. (4) Leucocytosis SNOMED Code(s): 043006065 Code(s): D72.829 - ELEVATED WHITE BLOOD CELL COUNT, UNSPECIFIED Status: Acute Current Visit: No Annotation/Comment:: Resolved. (5) Tobacco abuse SNOMED Code(s): 438439435 Code(s): Z72.0 - TOBACCO USE Status: Acute Current Visit: No Annotation /Comment:: Patch and nicotine replacement. Encouraged to quit. (6) HTN (hypertension), benign SNOMED Code(s): 89967833 Code(s): I10 - ESSENTIAL (PRIMARY) HYPERTENSION Status: Acute Current Visit: No Annotation/Comment:: All meds have been returned to home dose except for amlodipine 10 mg is still being held. (7) DVT prophylaxis SNOMED Code(s): 915714682 Code(s): YQT2382 - Status: Acute Current Visit: Yes Annotation/Comment :: Continues on Lovenox. - Problem List Review Problem List Initiated/Reviewed/Updated: Yes - My Orders Last 24 Hours: My Active Orders 01/22/18 13:07 RT Post Treatment Assessment [RC] Click to Edit 01/22/18 13:08 Albuterol/Ipratropium [DuoNeb 3.0-0.5 MG/3 ML] 3 ml NEB QIDRT PRN 01/23/18 09:00 Losartan [Cozaar] 100 mg PO DAILY 01/23/18 21:00 Metoprolol Tartrate [Lopressor] 100 mg PO BID
[2018-01-23] MEDS: Enoxaparin 40 MG/0.4 ML Syringe SUBCUT SCH (20:21)
[2018-01-23] MEDS: Insulin Detemir 100 Units/ML 3 ML Pen SUBCUT SCH (20:25)
[2018-01-23] MEDS: Metoprolol Tartrate 100 MG Tab PO SCH (20:26)
[2018-01-23] MEDS: atorvaSTATin 10 MG Tab PO SCH (20:26)
[2018-01-24] MEDS: Losartan 100 MG Tab PO SCH (08:05)
[2018-01-24] MEDS: Formoterol/Mometasone 200-5 MCG 8.8 GM Inhaler IH SCH ×2 (08:05→20:59)
[2018-01-24] MEDS: Insulin Aspart 100 Units/ML 3 ML Pen SUBCUT SCH ×6 (08:06→17:30)
[2018-01-24] MEDS: Metoprolol Tartrate 100 MG Tab PO SCH ×2 (08:06→21:02)
[2018-01-24] MEDS: Tiotropium Inhaler 18 MCG Inhalation Powder Cap Kit of 5 INH SCH (08:06)
[2018-01-24] MEDS: Nicotine 14 MG/24 Hr Patch TRDERM SCH (08:07)
--- NOTE | 2018-01-24 09:58 | PCM.PN ---
- General Info Date of Service: 01/24/18 Subjective Update: Patient complains of some moderate pain in the left leg anteriorly swelling has been the same as previous. The nurse was concerned about the redness. He is able to move these knee and his ankle. - Review of Systems Pulmonary: Reports: No Symptoms Cardiovascular: Reports: No Symptoms Gastrointestinal: Reports: No Symptoms - Patient Data Vitals - Most Recent: Last Vital Signs Temp 98.7 F 01/23/18 08:00 Pulse 74 01/24/18 08:06 Resp 18 01/23/18 08:00 BP 133/81 01/24/18 08:06 Pulse Ox 95 01/23/18 16:00 Weight - Most Recent: 109.826 kg I&O - Last 24 Hours: Intake & Output 01/23/18 01/24/18 01/24/18 22:59 06:59 14:59 Intake Total 400 Balance 400 Lab Results Last 24 Hours: Laboratory Results - last 24 hr 01/23/18 01/23/18 01/23/18 Range/Units 11:31 17:19 20:20 POC Glucose 138 H 146 H 183 H (80-116) mg/dL 01/24/18 Range/Units 06:07 POC Glucose 98 D (80-116) mg/dL Med Orders - Current: Current Medications Acetaminophen (Tylenol) 650 mg PO Q4H PRN PRN Reason: Pain (Mild 1-3)/fever Last Admin: 01/23/18 15:28 Dose: 650 mg Hydrocodone Bitart/Acetaminophen ([place] 325-5 Mg) 2 tab PO Q3H PRN PRN Reason: pain > 5 Last Admin: 01/23/18 20:25 Dose: 2 tab Albuterol (Ventolin Hfa) 0 gm INH Q6H PRN PRN Reason: Dyspnea Albuterol/Ipratropium (Duoneb 3.0-0.5 Mg/3 Ml) 3 ml NEB QIDRT PRN PRN Reason: Shortness of Breath Aspirin (Aspirin) 325 mg PO DAILY [facility] Atorvastatin Calcium (Lipitor) 10 mg PO BEDTIME [facility] Last Admin: 01/23/18 20:26 Dose: 10 mg Bacitracin (Bacitracin Oint) 0 gm TOP DAILY PRN PRN Reason: skin abrasion Citalopram Hydrobromide (Celexa) 40 mg PO DAILY [facility] Last Admin: 01/24/18 08:05 Dose: 40 mg Docusate Sodium (Colace) 100 mg PO BID PRN PRN Reason: Constipation Last Admin: 01/21/18 08:50 Dose: 100 mg Enoxaparin Sodium (Lovenox) 40 mg SUBCUT Q24H [facility] Last Admin: 01/23/18 20:21 Dose: 40 mg Insulin Aspart (Novolog) 0 unit SUBCUT TIDMEALS [facility] PRN Reason: Protocol Last Admin: 01/24/18 08:07 Dose: Not Given Insulin Aspart (Novolog) 7 unit SUBCUT TIDMEALS [facility] Last Admin: 01/24/18 08:06 Dose: 7 units Insulin Detemir (Levemir) 42 unit SUBCUT BEDTIME [facility] Last Admin: 01/23/18 20:25 Dose: 42 unit Losartan Potassium (Cozaar) 100 mg PO DAILY [facility] Last Admin: 01/24/18 08:05 Dose: 100 mg Magnesium Hydroxide (Milk Of Magnesia) 30 ml PO DAILY PRN PRN Reason: Constipation Last Admin: 01/21/18 02:49 Dose: 30 ml Metoprolol Tartrate (Lopressor) 100 mg PO BID [facility] Last Admin: 01/24/18 08:06 Dose: 100 mg Mometasone Furoate/Formoterol Fumar (Dulera 200-5 Mcg) 2 puff IH BID [facility] Last Admin: 01/24/18 08:05 Dose: 2 puff Nicotine (Habitrol) 14 mg TRDERM DAILY [facility] Last Admin: 01/24/18 08:07 Dose: 14 mg Nicotine Polacrilex (Commit) 2 mg BUCCAL Q1H PRN PRN Reason: tobacco abuse Tiotropium [place] (Spiriva Handihaler) 18 mcg INH DAILY [facility] Last Admin: 01/24/18 08:06 Dose: 18 mcg Discontinued Medications Albuterol/Ipratropium (Duoneb 3.0-0.5 Mg/3 Ml) 3 ml NEB QIDRT [facility] Last Admin: 01/22/18 11:19 Dose: 3 ml Insulin Aspart (Novolog) 5 unit SUBCUT TIDMEALS [facility] Last Admin: 01/22/18 08:06 Dose: 5 units Losartan Potassium (Cozaar) 50 mg PO DAILY [facility] Last Admin: 01/22/18 08:16 Dose: 50 mg Losartan Potassium (Cozaar) 50 mg PO ONETIME ONE Stop: 01/22/18 08:46 Last Admin: 01/22/18 09:15 Dose: 50 mg Metoprolol Tartrate (Lopressor) 100 mg PO BID [facility] Last Admin: 01/21/18 08:52 Dose: 100 mg Metoprolol Tartrate (Lopressor) 50 mg PO BID [facility] Last Admin: 01/23/18 08:10 Dose: 50 mg Metoprolol Tartrate (Lopressor) 50 mg PO ONETIME ONE Stop: 01/23/18 08:46 Last Admin: 01/23/18 09:45 Dose: 50 mg - Exam Quality Assessment: Supplemental Oxygen Extremities: Leg Pain, Increased Warmth, Redness. No: Non-Tender, No Pedal Edema - Problem List & Annotations (1) S/p tibial fracture SNOMED Code(s): 975411465 Code(s): Z87.81 - PERSONAL HISTORY OF (HEALED) TRAUMATIC FRACTURE Status: Acute Current Visit: Yes (2) Cellulitis SNOMED Code(s): 034434018 Code(s): L03.90 - CELLULITIS, UNSPECIFIED Status: Acute Current Visit: Yes Qualifiers: Laterality: left - Problem List Review Problem List Initiated/Reviewed/Updated: Yes - My Orders Last 24 Hours: My Active Orders 01/24/18 09:54 BASIC METABOLIC PANEL,BMP [CHEM] Stat CBC WITH AUTO DIFF [HEME] Stat CRP [C-REACTIVE PROTEIN] [CHEM] Routine 01/24/18 10:00 Aspirin 325 mg PO DAILY - Plan Plan:: I briefly spoke with orthopedic surgeon Dr. Giron, who recommended some prophylactic antibiotics just to prevent cellulitis. He was recommended to put him on aspirin to confirm times a day for DVT prophylaxis, is ready Lovenox. I started him on cephalexin, and will obtain a baseline CRP and CBC. Continue PT
[2018-01-24] MEDS ORDERED: Aspirin 325 MG Tab PO SCH (10:00)
[2018-01-24] MEDS: Aspirin 325 MG Tab.EC PO SCH (11:06)
[2018-01-24] MEDS: Cephalexin 500 MG Cap PO SCH ×3 (11:06→21:00)
[2018-01-24] MEDS: Acetaminophen/HYDROcodone 325-5 MG Tab PO PRN ×2 (14:27→23:44)
[2018-01-24] MEDS: Enoxaparin 40 MG/0.4 ML Syringe SUBCUT SCH (20:59)
[2018-01-24] MEDS: Insulin Detemir 100 Units/ML 3 ML Pen SUBCUT SCH (21:00)
[2018-01-24] MEDS: atorvaSTATin 10 MG Tab PO SCH (21:05)
[2018-01-25] MEDS: Insulin Aspart 100 Units/ML 3 ML Pen SUBCUT SCH ×6 (08:19→17:28)
[2018-01-25] MEDS: Aspirin 325 MG Tab.EC PO SCH (08:19)
[2018-01-25] MEDS: Tiotropium Inhaler 18 MCG Inhalation Powder Cap Kit of 5 INH SCH (08:19)
[2018-01-25] MEDS: Formoterol/Mometasone 200-5 MCG 8.8 GM Inhaler IH SCH ×2 (08:19→20:49)
[2018-01-25] MEDS: Cephalexin 500 MG Cap PO SCH ×3 (08:19→20:50)
[2018-01-25] MEDS: Nicotine 14 MG/24 Hr Patch TRDERM SCH (08:20)
[2018-01-25] MEDS: Metoprolol Tartrate 100 MG Tab PO SCH ×2 (08:24→20:51)
[2018-01-25] MEDS: Losartan 100 MG Tab PO SCH (08:24)
[2018-01-25] MEDS: Acetaminophen/HYDROcodone 325-5 MG Tab PO PRN ×2 (11:39→21:42)
[2018-01-25] MEDS: Enoxaparin 40 MG/0.4 ML Syringe SUBCUT SCH (20:49)
[2018-01-25] MEDS: atorvaSTATin 10 MG Tab PO SCH (20:50)
[2018-01-25] MEDS: Insulin Detemir 100 Units/ML 3 ML Pen SUBCUT SCH (20:51)
[2018-01-26] MEDS: Insulin Aspart 100 Units/ML 3 ML Pen SUBCUT SCH ×6 (07:47→17:18)
[2018-01-26] MEDS: Nicotine 14 MG/24 Hr Patch TRDERM SCH (08:36)
[2018-01-26] MEDS: Tiotropium Inhaler 18 MCG Inhalation Powder Cap Kit of 5 INH SCH (08:36)
[2018-01-26] MEDS: Aspirin 325 MG Tab.EC PO SCH (08:36)
[2018-01-26] MEDS: Losartan 100 MG Tab PO SCH (08:36)
[2018-01-26] MEDS: Formoterol/Mometasone 200-5 MCG 8.8 GM Inhaler IH SCH ×2 (08:36→20:41)
[2018-01-26] MEDS: Cephalexin 500 MG Cap PO SCH ×2 (08:36→13:34)
[2018-01-26] MEDS: Metoprolol Tartrate 100 MG Tab PO SCH ×2 (08:36→20:42)
[2018-01-26] MEDS: Acetaminophen/HYDROcodone 325-5 MG Tab PO PRN ×2 (08:43→20:46)
--- NOTE | 2018-01-26 17:11 | PCM.PN ---
- General Info Date of Service: 01/26/18 Subjective Update: I was asked to see Andreas because the left leg since 12 swollen and is complaining of worse pain. No fever,and pain is worse with ambulation and weightbearing - Review of Systems Pulmonary: Reports: No Symptoms Cardiovascular: Reports: No Symptoms - Patient Data Vitals - Most Recent: Last Vital Signs Temp 97.8 F 01/26/18 07:28 Pulse 72 01/26/18 08:36 Resp 18 01/26/18 07:28 BP 129/77 01/26/18 08:36 Pulse Ox 93 L 01/26/18 15:38 Weight - Most Recent: 109.826 kg Lab Results Last 24 Hours: Laboratory Results - last 24 hr 01/25/18 01/25/18 01/26/18 Range/Units 17:26 20:46 06:20 POC Glucose 257 H D 160 H D 163 H (80-116) mg/dL 01/26/18 Range/Units 11:23 POC Glucose 229 H (80-116) mg/dL Med Orders - Current: Current Medications Acetaminophen (Tylenol) 650 mg PO Q4H PRN PRN Reason: Pain (Mild 1-3)/fever Last Admin: 01/23/18 15:28 Dose: 650 mg Hydrocodone Bitart/Acetaminophen ([place] 325-5 Mg) 2 tab PO Q3H PRN PRN Reason: pain > 5 Last Admin: 01/26/18 08:43 Dose: 2 tab Albuterol (Ventolin Hfa) 0 gm INH Q6H PRN PRN Reason: Dyspnea Albuterol/Ipratropium (Duoneb 3.0-0.5 Mg/3 Ml) 3 ml NEB QIDRT PRN PRN Reason: Shortness of Breath Aspirin (Ecotrin) 325 mg PO DAILY [facility] Last Admin: 01/26/18 08:36 Dose: 325 mg Atorvastatin Calcium (Lipitor) 10 mg PO BEDTIME [facility] Last Admin: 01/25/18 20:50 Dose: 10 mg Bacitracin (Bacitracin Oint) 0 gm TOP DAILY PRN PRN Reason: skin abrasion Cephalexin (Keflex) 500 mg PO TID [facility] Stop: 01/30/18 10:01 Last Admin: 01/26/18 13:34 Dose: 500 mg Citalopram Hydrobromide (Celexa) 40 mg PO DAILY [facility] Last Admin: 01/26/18 08:36 Dose: 40 mg Docusate Sodium (Colace) 100 mg PO BID PRN PRN Reason: Constipation Last Admin: 01/21/18 08:50 Dose: 100 mg Enoxaparin Sodium (Lovenox) 40 mg SUBCUT Q24H [facility] Last Admin: 01/25/18 20:49 Dose: 40 mg Insulin Aspart (Novolog) 0 unit SUBCUT TIDMEALS [facility] PRN Reason: Protocol Last Admin: 01/26/18 11:25 Dose: 4 units Insulin Aspart (Novolog) 7 unit SUBCUT TIDMEALS [facility] Last Admin: 01/26/18 11:25 Dose: 7 units Insulin Detemir (Levemir) 42 unit SUBCUT BEDTIME [facility] Last Admin: 01/25/18 20:51 Dose: 42 unit Losartan Potassium (Cozaar) 100 mg PO DAILY [facility] Last Admin: 01/26/18 08:36 Dose: 100 mg Magnesium Hydroxide (Milk Of Magnesia) 30 ml PO DAILY PRN PRN Reason: Constipation Last Admin: 01/21/18 02:49 Dose: 30 ml Metoprolol Tartrate (Lopressor) 100 mg PO BID [facility] Last Admin: 01/26/18 08:36 Dose: 100 mg Mometasone Furoate/Formoterol Fumar (Dulera 200-5 Mcg) 2 puff IH BID [facility] Last Admin: 01/26/18 08:36 Dose: 2 puff Nicotine (Habitrol) 14 mg TRDERM DAILY [facility] Last Admin: 01/26/18 08:36 Dose: 14 mg Nicotine Polacrilex (Commit) 2 mg BUCCAL Q1H PRN PRN Reason: tobacco abuse Tiotropium [place] (Spiriva Handihaler) 18 mcg INH DAILY [facility] Last Admin: 01/26/18 08:36 Dose: 18 mcg Discontinued Medications Albuterol/Ipratropium (Duoneb 3.0-0.5 Mg/3 Ml) 3 ml NEB QIDRT [facility] Last Admin: 01/22/18 11:19 Dose: 3 ml Insulin Aspart (Novolog) 5 unit SUBCUT TIDMEALS [facility] Last Admin: 01/22/18 08:06 Dose: 5 units Losartan Potassium (Cozaar) 50 mg PO DAILY [facility] Last Admin: 01/22/18 08:16 Dose: 50 mg Losartan Potassium (Cozaar) 50 mg PO ONETIME ONE Stop: 01/22/18 08:46 Last Admin: 01/22/18 09:15 Dose: 50 mg Metoprolol Tartrate (Lopressor) 100 mg PO BID [facility] Last Admin: 01/21/18 08:52 Dose: 100 mg Metoprolol Tartrate (Lopressor) 50 mg PO BID [facility] Last Admin: 01/23/18 08:10 Dose: 50 mg Metoprolol Tartrate (Lopressor) 50 mg PO ONETIME ONE Stop: 01/23/18 08:46 Last Admin: 01/23/18 09:45 Dose: 50 mg - Exam Quality Assessment: No: Supplemental Oxygen General: Alert, Other HEENT: Pupils Equal, Pupils Reactive, EOMI, Mucous Membr. Moist/Tat [place] Skin: Warm Wound/Incisions: Other (The left leg appears red and warm and setting worse than when I saw him yesterday. Is an area open on the anterior aspect about the size of the time. There is mild purulent drainage.) Psy/Mental Status: Alert, Normal Affect, Normal Mood - Problem List & Annotations (1) Cellulitis SNOMED Code(s): 784531102 Code(s): L03.90 - CELLULITIS, UNSPECIFIED Status: Acute Current Visit: Yes Qualifiers: Site of cellulitis: extremity Laterality: left (2) S/p tibial fracture SNOMED Code(s): 542039889 Code(s): Z87.81 - PERSONAL HISTORY OF (HEALED) TRAUMATIC FRACTURE Status: Acute Current Visit: Yes - Problem List Review Problem List Initiated/Reviewed/Updated: Yes - My Orders Last 24 Hours: My Active Orders 01/26/18 17:15 cefTRIAXone [Rocephin] 1,000 mg IVPUSH Q24H 01/26/18 18:00 Vancomycin 1,000 mg Sodium Chloride 0.9% [Normal Saline] 250 ml IV Q24H 01/27/18 05:11 BASIC METABOLIC PANEL,BMP [CHEM] AM C-REACTIVE PROTEIN [CHEM] AM CBC WITH AUTO DIFF [HEME] AM CREATINE KINASE,CK [CHEM] AM D-DIMER QUANTITATIVE [COAG] AM LACTIC ACID [CHEM] AM - Plan Plan:: I concerned about cellulitis. I've decided to start IV Rocephin and vancomycin in place of cephalexin. I will repeat a CBC CPK CRP lactic acid and basic metabolic panel tomorrow morning.
[2018-01-26] MEDS: Sodium Chloride 0.9% 10 ML Syringe FLUSH PRN (17:28)
[2018-01-26] MEDS: cefTRIAXone 1,000 MG VIAL IVPUSH SCH (17:42)
[2018-01-26] MEDS: Enoxaparin 40 MG/0.4 ML Syringe SUBCUT SCH (20:41)
[2018-01-26] MEDS: atorvaSTATin 10 MG Tab PO SCH (20:41)
[2018-01-26] MEDS: Insulin Detemir 100 Units/ML 3 ML Pen SUBCUT SCH (20:42)
[2018-01-27] MEDS: Insulin Aspart 100 Units/ML 3 ML Pen SUBCUT SCH ×6 (09:45→18:12)
[2018-01-27] MEDS: Formoterol/Mometasone 200-5 MCG 8.8 GM Inhaler IH SCH ×2 (09:46→20:46)
[2018-01-27] MEDS: Aspirin 325 MG Tab.EC PO SCH (09:47)
[2018-01-27] MEDS: Nicotine 14 MG/24 Hr Patch TRDERM SCH (09:47)
[2018-01-27] MEDS: Metoprolol Tartrate 100 MG Tab PO SCH ×2 (09:49→20:48)
[2018-01-27] MEDS: Tiotropium Inhaler 18 MCG Inhalation Powder Cap Kit of 5 INH SCH (10:11)
[2018-01-27] MEDS: Sodium Chloride 0.9% 10 ML Syringe FLUSH PRN ×4 (10:26→23:42)
[2018-01-27] MEDS: Losartan 100 MG Tab PO SCH (10:35)
[2018-01-27] MEDS ORDERED: Bacitracin Oint 28.35 GM Tube TOP PRN (12:22)
--- NOTE | 2018-01-27 14:37 | US ---
INDICATION: Question DVT. DUPLEX ULTRASOUND, LEFT LOWER EXTREMITY VEINS: Utilizing 2-D real time, duplex Doppler spectral analysis, and color flow imaging, examination of the left lower extremity veins revealed no evidence of deep venous thrombosis or obstruction. Compression views showed no abnormal lack of compression to suggest thrombosis. No evidence of incompetence of the valves was identified. IMPRESSION: Duplex ultrasound, left lower extremity veins, shows no evidence of deep venous thrombosis or incompetence. MTDD
[2018-01-27] MEDS: Acetaminophen/HYDROcodone 325-5 MG Tab PO PRN ×2 (15:58→23:45)
[2018-01-27] MEDS: cefTRIAXone 1,000 MG VIAL IVPUSH SCH (18:13)
[2018-01-27] MEDS: Enoxaparin 40 MG/0.4 ML Syringe SUBCUT SCH (20:45)
[2018-01-27] MEDS: atorvaSTATin 10 MG Tab PO SCH (20:46)
[2018-01-27] MEDS: Insulin Detemir 100 Units/ML 3 ML Pen SUBCUT SCH (20:57)
[2018-01-28] MEDS: Acetaminophen/HYDROcodone 325-5 MG Tab PO PRN ×2 (09:51→19:47)
[2018-01-28] MEDS: Insulin Aspart 100 Units/ML 3 ML Pen SUBCUT SCH ×7 (11:19→19:05)
[2018-01-28] MEDS: Losartan 100 MG Tab PO SCH (11:20)
[2018-01-28] MEDS: Nicotine 14 MG/24 Hr Patch TRDERM SCH (11:21)
[2018-01-28] MEDS: Aspirin 325 MG Tab.EC PO SCH (11:21)
[2018-01-28] MEDS: Tiotropium Inhaler 18 MCG Inhalation Powder Cap Kit of 5 INH SCH (11:21)
[2018-01-28] MEDS: Formoterol/Mometasone 200-5 MCG 8.8 GM Inhaler IH SCH ×2 (11:21→20:05)
[2018-01-28] MEDS: Metoprolol Tartrate 100 MG Tab PO SCH ×2 (11:21→20:05)
[2018-01-28] MEDS: Sodium Chloride 0.9% 10 ML Syringe FLUSH PRN ×4 (11:22→22:41)
[2018-01-28] MEDS: cefTRIAXone 1,000 MG VIAL IVPUSH SCH (18:00)
[2018-01-28] MEDS: Insulin Detemir 100 Units/ML 3 ML Pen SUBCUT SCH (19:59)
[2018-01-28] MEDS: Enoxaparin 40 MG/0.4 ML Syringe SUBCUT SCH (20:04)
[2018-01-28] MEDS: atorvaSTATin 10 MG Tab PO SCH (20:05)
[2018-01-29] MEDS: Sodium Chloride 0.9% 10 ML Syringe FLUSH PRN ×4 (00:53→18:21)
[2018-01-29] MEDS: Insulin Aspart 100 Units/ML 3 ML Pen SUBCUT SCH ×6 (08:07→18:21)
[2018-01-29] MEDS: Losartan 100 MG Tab PO SCH (08:09)
[2018-01-29] MEDS: Aspirin 325 MG Tab.EC PO SCH (08:10)
[2018-01-29] MEDS: Formoterol/Mometasone 200-5 MCG 8.8 GM Inhaler IH SCH ×2 (08:10→20:05)
[2018-01-29] MEDS: Nicotine 14 MG/24 Hr Patch TRDERM SCH (08:10)
[2018-01-29] MEDS: Tiotropium Inhaler 18 MCG Inhalation Powder Cap Kit of 5 INH SCH (08:11)
[2018-01-29] MEDS: Metoprolol Tartrate 100 MG Tab PO SCH ×2 (08:11→20:05)
[2018-01-29] MEDS: Acetaminophen/HYDROcodone 325-5 MG Tab PO PRN ×3 (08:54→19:55)
[2018-01-29] MEDS: cefTRIAXone 1,000 MG VIAL IVPUSH SCH (18:21)
[2018-01-29] MEDS: Enoxaparin 40 MG/0.4 ML Syringe SUBCUT SCH (19:48)
[2018-01-29] MEDS: Insulin Detemir 100 Units/ML 3 ML Pen SUBCUT SCH (20:00)
[2018-01-29] MEDS: atorvaSTATin 10 MG Tab PO SCH (20:04)
[2018-01-30] MEDS: Sodium Chloride 0.9% 10 ML Syringe FLUSH PRN ×3 (00:55→17:52)
[2018-01-30] MEDS: Acetaminophen/HYDROcodone 325-5 MG Tab PO PRN ×6 (01:10→22:51)
[2018-01-30] MEDS: Insulin Aspart 100 Units/ML 3 ML Pen SUBCUT SCH ×6 (08:14→18:05)
[2018-01-30] MEDS: Losartan 100 MG Tab PO SCH (08:23)
[2018-01-30] MEDS: Formoterol/Mometasone 200-5 MCG 8.8 GM Inhaler IH SCH ×2 (08:23→20:27)
[2018-01-30] MEDS: Aspirin 325 MG Tab.EC PO SCH (08:23)
[2018-01-30] MEDS: Metoprolol Tartrate 100 MG Tab PO SCH ×2 (08:23→20:28)
[2018-01-30] MEDS: Nicotine 14 MG/24 Hr Patch TRDERM SCH (08:24)
[2018-01-30] MEDS: Tiotropium Inhaler 18 MCG Inhalation Powder Cap Kit of 5 INH SCH (08:24)
[2018-01-30] MEDS: cefTRIAXone 1,000 MG VIAL IVPUSH SCH (17:50)
[2018-01-30] MEDS: Insulin Detemir 100 Units/ML 3 ML Pen SUBCUT SCH (20:25)
[2018-01-30] MEDS: atorvaSTATin 10 MG Tab PO SCH (20:26)
[2018-01-30] MEDS: Enoxaparin 40 MG/0.4 ML Syringe SUBCUT SCH (20:27)
[2018-01-31] MEDS: Sodium Chloride 0.9% 10 ML Syringe FLUSH PRN ×2 (00:53→23:34)
[2018-01-31] MEDS: Insulin Aspart 100 Units/ML 3 ML Pen SUBCUT SCH ×6 (07:43→17:28)
[2018-01-31] MEDS: Tiotropium Inhaler 18 MCG Inhalation Powder Cap Kit of 5 INH SCH (08:25)
[2018-01-31] MEDS: Formoterol/Mometasone 200-5 MCG 8.8 GM Inhaler IH SCH ×2 (08:25→20:41)
[2018-01-31] MEDS: Aspirin 325 MG Tab.EC PO SCH (08:26)
[2018-01-31] MEDS: Nicotine 14 MG/24 Hr Patch TRDERM SCH (08:26)
[2018-01-31] MEDS: Metoprolol Tartrate 100 MG Tab PO SCH ×2 (08:29→20:32)
[2018-01-31] MEDS: Losartan 100 MG Tab PO SCH (08:29)
[2018-01-31] MEDS: Acetaminophen/HYDROcodone 325-5 MG Tab PO PRN ×4 (10:35→20:40)
--- NOTE | 2018-01-31 13:55 | PN ---
DATE SEEN: 01/31/2018 SUBJECTIVE: Andreas Baum is a 72-year-old gentleman seen today for review. He had a recent complicated fall with surgery on 01/17/2018. He has been doing well with swing bed intervention. Infection process in place, improving in that regard. Presently on appropriate analgesics, antibiotic therapy, including ceftriaxone and vancomycin. MEDICATIONS: Followed by pharmacy. LABORATORY STUDIES: Sugars only. Vancomycin on 01/31/2018 is 15.5. OBJECTIVE: VITAL SIGNS: Temperature 37.0, pulse 76, blood pressure 131/84, respiratory rate 18, saturation 92%. GENERAL: Appears comfortable. NECK: Benign. Thyroid small. CHEST: Clear. HEART: Regular. ABDOMEN: Benign. EXTREMITIES: Per Orthopedics. ASSESSMENT: Postoperative care, infection on board. PLAN: Medications, care, and treatment appropriate, orthopedic consultation in place. /[id number] [id number] REECE/MARIA LUISA
[2018-01-31] MEDS: cefTRIAXone 1,000 MG VIAL IVPUSH SCH (18:47)
[2018-01-31] MEDS: Enoxaparin 40 MG/0.4 ML Syringe SUBCUT SCH (20:31)
[2018-01-31] MEDS: atorvaSTATin 10 MG Tab PO SCH (20:32)
[2018-01-31] MEDS: Insulin Detemir 100 Units/ML 3 ML Pen SUBCUT SCH (20:42)
[2018-02-01] MEDS: Sodium Chloride 0.9% 10 ML Syringe FLUSH PRN ×2 (01:47→17:49)
[2018-02-01] MEDS: Acetaminophen/HYDROcodone 325-5 MG Tab PO PRN ×5 (03:43→21:39)
[2018-02-01] MEDS: Insulin Aspart 100 Units/ML 3 ML Pen SUBCUT SCH ×6 (08:32→17:44)
[2018-02-01] MEDS: Aspirin 325 MG Tab.EC PO SCH (08:36)
[2018-02-01] MEDS: Metoprolol Tartrate 100 MG Tab PO SCH ×2 (08:36→21:26)
[2018-02-01] MEDS: Losartan 100 MG Tab PO SCH (08:36)
[2018-02-01] MEDS: Formoterol/Mometasone 200-5 MCG 8.8 GM Inhaler IH SCH ×2 (08:37→21:24)
[2018-02-01] MEDS: Nicotine 14 MG/24 Hr Patch TRDERM SCH (08:38)
[2018-02-01] MEDS: Tiotropium Inhaler 18 MCG Inhalation Powder Cap Kit of 5 INH SCH (09:05)
[2018-02-01] MEDS: cefTRIAXone 1,000 MG VIAL IVPUSH SCH (17:49)
[2018-02-01] MEDS: Enoxaparin 40 MG/0.4 ML Syringe SUBCUT SCH (20:13)
[2018-02-01] MEDS: atorvaSTATin 10 MG Tab PO SCH (21:25)
[2018-02-01] MEDS: Insulin Detemir 100 Units/ML 3 ML Pen SUBCUT SCH (21:33)
[2018-02-02] MEDS: Sodium Chloride 0.9% 10 ML Syringe FLUSH PRN ×2 (01:01→11:19)
[2018-02-02] MEDS: Insulin Aspart 100 Units/ML 3 ML Pen SUBCUT SCH ×6 (08:56→17:05)
[2018-02-02] MEDS: Nicotine 14 MG/24 Hr Patch TRDERM SCH (08:58)
[2018-02-02] MEDS: Losartan 100 MG Tab PO SCH (09:02)
[2018-02-02] MEDS: Metoprolol Tartrate 100 MG Tab PO SCH ×2 (09:03→20:36)
[2018-02-02] MEDS: Aspirin 325 MG Tab.EC PO SCH (09:03)
[2018-02-02] MEDS: Formoterol/Mometasone 200-5 MCG 8.8 GM Inhaler IH SCH ×2 (09:03→20:35)
[2018-02-02] MEDS: Tiotropium Inhaler 18 MCG Inhalation Powder Cap Kit of 5 INH SCH (09:04)
--- NOTE | 2018-02-02 12:23 | PN ---
DATE SEEN: 02/02/2018 SUBJECTIVE: Andreas Baum is a 72-year-old male, presently on interventional therapy for left postoperative surgical tib-fib fracture treatment. Presently on vancomycin, being followed by Pharmacy. Doing well and comfortable. Laboratory studies have been stable, no complicating issues are present. Repeat some lab work today. OBJECTIVE: Surgical wound looks intact, minimal erythema and redness. ASSESSMENT: Postoperative infection, left knee surgery. PLAN: As per recommendations, Pharmacy will be involved accordingly. /[id number] 1212 REECE/MARIA LUISA
[2018-02-02] MEDS: Acetaminophen/HYDROcodone 325-5 MG Tab PO PRN ×3 (12:54→23:52)
[2018-02-02] MEDS: cefTRIAXone 1,000 MG VIAL IVPUSH SCH (17:06)
[2018-02-02] MEDS: Enoxaparin 40 MG/0.4 ML Syringe SUBCUT SCH (19:54)
[2018-02-02] MEDS: atorvaSTATin 10 MG Tab PO SCH (20:35)
[2018-02-02] MEDS: Insulin Detemir 100 Units/ML 3 ML Pen SUBCUT SCH (20:40)
[2018-02-03] MEDS: Sodium Chloride 0.9% 10 ML Syringe FLUSH PRN ×2 (01:28→07:59)
[2018-02-03] MEDS: Insulin Aspart 100 Units/ML 3 ML Pen SUBCUT SCH ×6 (07:51→18:01)
[2018-02-03] MEDS: Tiotropium Inhaler 18 MCG Inhalation Powder Cap Kit of 5 INH SCH (08:00)
[2018-02-03] MEDS: Formoterol/Mometasone 200-5 MCG 8.8 GM Inhaler IH SCH ×2 (08:00→20:19)
[2018-02-03] MEDS: Nicotine 14 MG/24 Hr Patch TRDERM SCH (08:00)
[2018-02-03] MEDS: Aspirin 325 MG Tab.EC PO SCH (08:01)
[2018-02-03] MEDS: Losartan 100 MG Tab PO SCH (08:05)
[2018-02-03] MEDS: Metoprolol Tartrate 100 MG Tab PO SCH ×2 (08:05→20:20)
[2018-02-03] MEDS: Acetaminophen/HYDROcodone 325-5 MG Tab PO PRN (08:10)
[2018-02-03] MEDS: Doxycycline 100 MG Tab PO SCH ×2 (11:12→20:21)
[2018-02-03] MEDS: Amoxicillin 500 MG Cap PO SCH ×2 (11:12→20:19)
--- NOTE | 2018-02-03 11:16 | PN ---
DATE SEEN: 02/03/2018 SUBJECTIVE: Mr. Baum is a 72-year-old male, in hospital stay. Recent left lower extremity fracture with a lengthy tibial pin provided. Laboratory studies; white count 13,400. Accu-Cheks have been satisfactory. Blood cultures x2 negative. Presently on vancomycin per Pharmacy intervention. Doing well. Pain is controlled. OBJECTIVE: VITAL SIGNS: 134/81, 94% on 2 L, and pulse of 72. GENERAL: Appears comfortable. NECK: Benign. Thyroid small. CHEST: Clear in all lung herring. HEART: Regular without ectopy or murmur. ABDOMEN: Benign. EXTREMITIES: Wound, left knee, intact. ASSESSMENT: Postoperative infection. PLAN: Medications, care and treatment appropriate. Await response from Dr. Giron accordingly. /[id number] REECE/MARIA LUISA
--- NOTE | 2018-02-03 11:58 | CR ---
INDICATION: Follow-up fracture, post ORIF. LEFT TIBIA AND FIBULA: Frontal and lateral views of the left tibia and fibula were obtained 01/31/2018 and compared with spot images from [facility] dated 2017. Intramedullary stu has been placed through the tibia, fixed in place by two screws proximally and one screw at the distal metaphysis of the tibia. Anatomic position and alignment of the tibial fracture fragments is noted. There are again noted some small bony fragments in the soft tissues, which are slightly offset from the main fracture fragments. Adequate position and alignment is also again suggested at the fibula. Skin clips are noted at the proximal tibia and distal tibia anteriorly and posteriorly, respectively. IMPRESSION: Essentially anatomic position and alignment of tibial fracture fragments post ORIF with satisfactory position and alignment of fibular fracture fragments also noted. MTDD
[2018-02-03] MEDS: Enoxaparin 40 MG/0.4 ML Syringe SUBCUT SCH (20:19)
[2018-02-03] MEDS: atorvaSTATin 10 MG Tab PO SCH (20:20)
[2018-02-03] MEDS: Insulin Detemir 100 Units/ML 3 ML Pen SUBCUT SCH (20:24)
[2018-02-04] MEDS: Insulin Aspart 100 Units/ML 3 ML Pen SUBCUT SCH ×6 (08:20→17:56)
[2018-02-04] MEDS: Formoterol/Mometasone 200-5 MCG 8.8 GM Inhaler IH SCH ×2 (08:23→20:23)
[2018-02-04] MEDS: Tiotropium Inhaler 18 MCG Inhalation Powder Cap Kit of 5 INH SCH (08:23)
[2018-02-04] MEDS: Nicotine 14 MG/24 Hr Patch TRDERM SCH (08:24)
[2018-02-04] MEDS: Aspirin 325 MG Tab.EC PO SCH (08:24)
[2018-02-04] MEDS: Losartan 100 MG Tab PO SCH (08:24)
[2018-02-04] MEDS: Amoxicillin 500 MG Cap PO SCH ×2 (08:24→20:23)
[2018-02-04] MEDS: Metoprolol Tartrate 100 MG Tab PO SCH ×2 (08:25→20:26)
[2018-02-04] MEDS: Doxycycline 100 MG Tab PO SCH ×2 (08:25→20:27)
--- NOTE | 2018-02-04 13:26 | PN ---
DATE SEEN: 02/04/2018 SUBJECTIVE: Mr. Baum is a 72-year-old male, presently under treatment for postoperative cellulitis, left leg. Pain continues to be problematic. Blood cultures, day 4, no growth. LABORATORY STUDIES: Sugars 132, 138, and 178. PHYSICAL EXAMINATION: CHEST: Clear. HEART: Regular. ABDOMEN: Benign. EXTREMITIES: Redness, surgical site, left lower leg, improving. ASSESSMENT: Cellulitis, left extremity, previous hardware insertion, left leg. PLAN: Meds on board, amoxicillin and dicloxacillin. Complementary care and well-being. Plan to discharge on accordingly. /[id number] 1222 REECE/MARIA LUISA
[2018-02-04] MEDS: Acetaminophen/HYDROcodone 325-5 MG Tab PO PRN ×2 (13:57→20:34)
[2018-02-04] MEDS: Enoxaparin 40 MG/0.4 ML Syringe SUBCUT SCH (20:22)
[2018-02-04] MEDS: atorvaSTATin 10 MG Tab PO SCH (20:25)
[2018-02-04] MEDS: Insulin Detemir 100 Units/ML 3 ML Pen SUBCUT SCH (20:29)
[2018-02-05] MEDS: Insulin Aspart 100 Units/ML 3 ML Pen SUBCUT SCH ×6 (08:18→17:38)
[2018-02-05] MEDS: Acetaminophen/HYDROcodone 325-5 MG Tab PO PRN ×3 (08:25→20:58)
[2018-02-05] MEDS: Losartan 100 MG Tab PO SCH (08:28)
[2018-02-05] MEDS: Amoxicillin 500 MG Cap PO SCH ×2 (08:28→20:46)
[2018-02-05] MEDS: Aspirin 325 MG Tab.EC PO SCH (08:29)
[2018-02-05] MEDS: Nicotine 14 MG/24 Hr Patch TRDERM SCH (08:29)
[2018-02-05] MEDS: Formoterol/Mometasone 200-5 MCG 8.8 GM Inhaler IH SCH ×2 (08:29→20:46)
[2018-02-05] MEDS: Metoprolol Tartrate 100 MG Tab PO SCH ×2 (08:31→20:45)
[2018-02-05] MEDS: Tiotropium Inhaler 18 MCG Inhalation Powder Cap Kit of 5 INH SCH (08:32)
[2018-02-05] MEDS: Doxycycline 100 MG Tab PO SCH ×2 (08:33→20:45)
--- NOTE | 2018-02-05 11:51 | PN ---
DATE SEEN: 02/05/2018 SUBJECTIVE: Mr. Baum is a 72-year-old male, presently hospitalized for treatment of cellulitis postoperative left surgical tib-fib fracture intervention. Doing well. Under Dr. Giron's direction, completed antibiotic course with vancomycin, presently on amoxicillin and doxycycline, expected duration two weeks. Discharge home tomorrow, complementary. OBJECTIVE: VITAL SIGNS: 36.4 degrees Fahrenheit, 78 is the pulse, 132/83, and 92. GENERAL: Appears comfortable. NECK: Benign. Thyroid small. CHEST: Clear. HEART: Regular. ABDOMEN: Benign. MUSCULOSKELETAL: Left leg surgical wound appeared fine, some pitting edema, but really comfortable improvement by any observation. ASSESSMENT: Cellulitis, left lower extremity, status post tib-fib fracture. PLAN: Present medications in place, continue antibiotics until , complementary care and well being. /[id number] REECE/MARIA LUISA
[2018-02-05] MEDS: Enoxaparin 40 MG/0.4 ML Syringe SUBCUT SCH (20:44)
[2018-02-05] MEDS: atorvaSTATin 10 MG Tab PO SCH (20:46)
[2018-02-05] MEDS: Insulin Detemir 100 Units/ML 3 ML Pen SUBCUT SCH (20:52)
[2018-02-06] MEDS: Insulin Aspart 100 Units/ML 3 ML Pen SUBCUT SCH ×4 (08:08→12:00)
[2018-02-06] MEDS: Metoprolol Tartrate 100 MG Tab PO SCH (08:13)
[2018-02-06] MEDS: Formoterol/Mometasone 200-5 MCG 8.8 GM Inhaler IH SCH (08:13)
[2018-02-06] MEDS: Amoxicillin 500 MG Cap PO SCH (08:14)
[2018-02-06] MEDS: Aspirin 325 MG Tab.EC PO SCH (08:14)
[2018-02-06] MEDS: Doxycycline 100 MG Tab PO SCH (08:14)
[2018-02-06] MEDS: Nicotine 14 MG/24 Hr Patch TRDERM SCH (08:14)
[2018-02-06] MEDS: Losartan 100 MG Tab PO SCH (08:14)
[2018-02-06 08:19] VITALS: BP 116/80
[2018-02-06] MEDS: Acetaminophen/HYDROcodone 325-5 MG Tab PO PRN (09:45)
[2018-02-06] MEDS: Tiotropium Inhaler 18 MCG Inhalation Powder Cap Kit of 5 INH SCH (10:29)
--- NOTE | 2018-02-07 09:28 | DISCH ---
DISCHARGE DATE: 02/06/2018 HOSPITAL COURSE: Andreas Baum is a 72-year-old male admitted to [facility]. He had undergone surgical repair of a tib-fib fracture. He had fallen off a flat trailer, complicated fracture mid tibia fibular. Underwent surgical repair. All went well. Activity was limited. Progressive pain, discomfort, swelling, infection were present. He underwent a lengthy course of intravenous antibiotic therapy particularly vancomycin. Redness improved. PT OT were actively involved, switched from IV vancomycin to amoxicillin doxycycline 3 days prior to discharge. Redness, pain, swelling improved. Analgesics were still required, warmth and redness improved. Inflammatory markers were negative, blood cultures were negative. At the time of discharge, ready for discharge. PT OT referral, complementary care and well being, 2 week course of amoxicillin and doxycycline. PHYSICAL EXAMINATION: VITAL SIGNS: Stable. NECK: Benign. Thyroid small. CHEST: Clear in all lung herring. HEART: Regular rate without ectopy or murmur. ABDOMEN: Benign. EXTREMITIES: Surgical sites left lower leg minimal redness, minimal edema, cooperative pain. DISPOSITION: The patient was discharged with Home Health followup, routine care per Dr. Rioc Giron, Orthopedics. DISCHARGE MEDICATIONS: Home medications with the addition of: 1. Amoxicillin 500 mg one p.o. t.i.d. #30. 2. Doxycycline 100 mg one p.o. b.i.d. 30. Complementary care and well being, proceed accordingly. Surgical procedure 01/17/2018. Surgical repair of tib-fib fracture. /[id number] REECE/MRAIA LUISA
== END 2018-02-06 12:35 | disposition home health service (06) | DRG 948 ==
LOC: FB.MS 14:43
PROVIDERS: ADMIT Family Medicine; ATTEND Family Medicine
DX: R53.1 Weakness (principal); L03.116 Cellulitis of left lower limb; T81.4XXA Infection following a procedure, initial encounter; S82.202D Unspecified fracture of shaft of left tibia, subsequent encounter for closed fracture with routine healing; S82.402D Unspecified fracture of shaft of left fibula, subsequent encounter for closed fracture with routine healing; Z98.890 Other specified postprocedural states; D72.829 Elevated white blood cell count, unspecified; Z66 Do not resuscitate; I10 Essential (primary) hypertension; F17.210 Nicotine dependence, cigarettes, uncomplicated; E11.9 Type 2 diabetes mellitus without complications; Z79.4 Long term (current) use of insulin; J44.9 Chronic obstructive pulmonary disease, unspecified; M19.90 Unspecified osteoarthritis, unspecified site; Z85.46 Personal history of malignant neoplasm of prostate; I25.2 Old myocardial infarction; H54.7 Unspecified visual loss; Z79.82 Long term (current) use of aspirin; Z88.2 Allergy status to sulfonamides; M79.605 Pain in left leg
CPT/HCPCS: 36415; 73590-LT; 80048; 80202; 82550; 82962; 83605; 85025; 85027; 85379; 85651; 86140; 87040; 93971-LT; 94150; 94640; 97110-GO; 97110-GP; 97116-GP; 97165-GO; 97530-GO; 97530-GP; 97535-GO; 97542-GO; A9270-GY; J0696; J1650; J3370; J7040; J7050; J7620

== ENCOUNTER 2018-06-27 18:59 | Observation (INO) | payer MEDICARE, OTHER ==
[2018-06-27] MEDS ORDERED: Albuterol/Ipratropium 3.0-0.5 MG/3 ML Neb Soln NEB ONE (19:24)
[2018-06-27] MEDS ORDERED: methylPREDNISolone Sodium Succinate 125 MG/2 ML SDV IM ONE (19:24)
--- NOTE | 2018-06-27 19:25 | EDM.PDOC ---
ED HPI GENERAL MEDICAL PROBLEM - General Stated Complaint: SINUS PROBLEMS SOB Time Seen by Provider: 06/27/18 18:59 Source of Information: Reports: Patient History Limitations: Reports: Respiratory Distress - History of Present Illness INITIAL COMMENTS - FREE TEXT/NARRATIVE: 72 y.o.w.m -smoker- with a h/o COPD on 2 l home O2 by [place], IDDM, HTN, came to the ed due to worsening for hos SOB. Pt lives by himself. Pt can talk 2 words sentences, can walk 1/2 a block before he get SOB. No N/V/D no dizziness, no CP or any other acute medical issues. BP 151/82 RR 20 Pulse ox 88% on 2 liters O2 by MARIE. Temp 36.9 Pulse 82 Onset Date: 06/20/18 Onset Time: 08:00 - Related Data Allergies Allergy/AdvReac Type Severity Reaction Status Date / Time Sulfa (Sulfonamide Allergy Cannot Verified 06/27/18 19:18 Antibiotics) Remember Home Meds: Home Meds Aspirin 325 mg PO DAILY 02/22/15 [History] Citalopram [Citalopram HBr] 40 mg PO DAILY 02/22/15 [History] Insulin Detemir [Levemir Flextouch] 42 units SQ BEDTIME 02/22/15 [History] Metoprolol Tartrate 100 mg PO BID 02/22/15 [History] Budesonide/Formoterol [Symbicort 160-4.5 MCG] 2 puff IH BID 08/13/16 [History] Insulin Aspart [NovoLOG] 10 units SUBCUT TIDMEALS 08/13/16 [History] atorvaSTATin [Lipitor] 20 mg PO BEDTIME 08/13/16 [History] Albuterol Sulfate [Ventolin Hfa] 2 puff INH Q6H PRN 01/16/18 [History] Tiotropium [Spiriva HandiHaler] 18 mcg INH DAILY 01/16/18 [History] Albuterol/Ipratropium [DuoNeb 3.0-0.5 MG/3 ML] 3 ml IH BID PRN 01/17/18 [History ] amLODIPine Besylate [Amlodipine Besylate] 10 mg PO DAILY 01/17/18 [History] Losartan [Cozaar] 100 mg PO DAILY #30 tablet 02/06/18 [Rx] Insulin Aspart [NovoLOG] 10 unit SUBCUT TIDMEALS 06/27/18 [History] Potassium Chloride 10 meq DAILY 06/27/18 [History] Past Medical History HEENT History: Reports: Impaired Vision Cardiovascular History: Reports: Hypertension, [place], SOB on Exertion Respiratory History: Reports: Bronchitis, Recurrent, COPD, SOB, Other (See Below ) Other Respiratory History: Pneumonia Genitourinary History: Reports: Other (See Below) Other Genitourinary History: Inguinal hernia Musculoskeletal History: Reports: Arthritis Endocrine/Metabolic History: Reports: Diabetes, Type II Oncologic (Cancer) History: Reports: Prostate - Infectious Disease History Infectious Disease History: Reports: Chicken Pox, Measles - Past Surgical History HEENT Surgical History: Reports: Cataract Surgery, Other (See Below) Other HEENT Surgeries/Procedures: both eyes Cardiovascular Surgical History: Reports: None GI Surgical History: Reports: Appendectomy Male Surgical History: Reports: Prostatectomy Endocrine Surgical History: Reports: None Musculoskeletal Surgical History: Reports: None Social & Family History - Family History Family Medical History: Noncontributory - Caffeine Use Caffeine Use: Reports: Coffee Other Caffeine Use: 6-7 cups per day - Living Situation & Occupation Living situation: Reports: , Alone Occupation: Retired ED ROS GENERAL - Review of Systems Review Of Systems: See Below Constitutional: Reports: No Symptoms HEENT: Reports: No Symptoms Respiratory: Reports: Shortness of Breath Cardiovascular: Reports: No Symptoms Endocrine: Reports: No Symptoms GI/Abdominal: Reports: No Symptoms : Reports: No Symptoms Musculoskeletal: Reports: No Symptoms Skin: Reports: No Symptoms Neurological: Reports: No Symptoms Psychiatric: Reports: No Symptoms Hematologic/Lymphatic: Reports: No Symptoms Immunologic: Reports: No Symptoms ED EXAM, GENERAL - Physical Exam Exam: See Below Exam Limited By: Respiratory Distress General Appearance: Alert, WD/WN, Moderate Distress Eye Exam: Bilateral Eye: Normal Inspection Ears: Normal External Exam Ear Exam: Bilateral Ear: Auricle Normal Nose: Normal Inspection, Normal Mucosa, No Blood Throat/Mouth: Normal Inspection, Normal Lips, Normal Oropharynx, Normal Voice, No Airway Compromise, Other (poor dental care) Head: Atraumatic, Normocephalic Neck: Normal Inspection, Supple, Non-Tender, Full Range of Motion Respiratory/Chest: No Respiratory Distress, Lungs Clear, Normal Breath Sounds, No Accessory Muscle Use, Chest Non-Tender Cardiovascular: Normal Peripheral Pulses, Regular Rate, Rhythm, No Edema, No Gallop, No JVD Peripheral Pulses: 2+: Brachial (L) GI/Abdominal: Normal Bowel Sounds, Soft, Non-Tender, No Organomegaly, No Distention, No Abnormal Bruit (Male) Exam: Deferred Rectal (Males) Exam: Deferred Back Exam: Normal Inspection, Full Range of Motion Extremities: Normal Inspection, Normal Range of Motion, Non-Tender, No Pedal Edema Neurological: Alert, Oriented, CN II-XII Intact, Normal Cognition, Normal Gait, No Motor/Sensory Deficits Psychiatric: Normal Affect, Normal Mood Skin Exam: Warm, Dry, Intact, Normal Color, No Rash Lymphatic: No Adenopathy Course - Vital Signs Text/Narrative:: 72 y.o.w.m -smoker- with a h/o COPD on 2 liter Home O2 by [place], IDDM, HTN, came to the ed due to worsening for hos SOB. Pt lives by himself. Pt can talk 2 words sentences, can walk 1/2 a block before he get SOB. No N/V/D no dizziness, no CP or any other acute medical issues. BP 151/82 RR 20 Pulse ox 88% on 2 liters O2 by [place]. Temp 36.9 Pulse 82 PE: 72 y.o.w.m with COPD exacerbation Imaging: CXR: COPD, no infiltrate Labs: WBC 14.5 HGB 16.8 KCT 48.3 BUN 12 Cr. 1.2 Na 138 K 4.1 Glc 183 GFR > 60 Lactic acid 1.4 Impression: COPD exacerbation, chronic bronchitis, IDDM, HTN Tx: Duo neb, Solumedrol Reexam: Mild improvement Plan: Admit for OBs Last Recorded V/S: Last Vital Signs Temp 36.6 C 06/28/18 16:00 Pulse 95 06/28/18 10:00 Resp 18 06/28/18 16:00 BP 123/71 06/28/18 16:00 Pulse Ox 90 L 06/28/18 16:00 - Orders/Labs/Meds Orders: Active Orders 24 hr Category Date Time Status RT Aerosol Therapy [RC] ASDIRECTED Care 06/27/18 19:24 Active CXR [Chest 2V] [CR] Stat Exams 06/27/18 19:24 Taken Medication Orders Albuterol (Ventolin Hfa) 0 gm INH Q6H PRN PRN Reason: Dyspnea Albuterol/Ipratropium (Duoneb 3.0-0.5 Mg/3 Ml) 3 ml INH BID PRN PRN Reason: breathing Amlodipine Besylate (Norvasc) 10 mg PO DAILY [facility] Last Admin: 06/28/18 10:00 Dose: 10 mg Amoxicillin/Clavulanate Potassium (Augmentin 500 Mg\125 Mg) 1 tab PO Q12H [facility] Last Admin: 06/28/18 09:59 Dose: 1 tab Aspirin (Ecotrin) 325 mg PO DAILY [facility] Last Admin: 06/28/18 10:00 Dose: 325 mg Atorvastatin Calcium (Lipitor) 20 mg PO BEDTIME [facility] Citalopram Hydrobromide (Celexa) 40 mg PO DAILY [facility] Last Admin: 06/28/18 09:59 Dose: 40 mg Docusate Sodium (Colace) 100 mg PO BID PRN PRN Reason: Constipation Enoxaparin Sodium (Lovenox) 30 mg SUBCUT Q24H [facility] Last Admin: 06/28/18 09:59 Dose: 30 mg Insulin Human Lispro (Humalog) 10 unit SUBCUT TIDMEALS [facility] Last Admin: 06/28/18 18:01 Dose: 10 units Admin: 06/28/18 12:51 Dose: 10 units Admin: 06/28/18 08:55 Dose: 10 units Losartan Potassium (Cozaar) 100 mg PO DAILY [facility] Last Admin: 06/28/18 09:59 Dose: 100 mg Metoprolol Tartrate (Lopressor) 100 mg PO BID [facility] Last Admin: 06/28/18 10:00 Dose: 100 mg Non-Formulary Medication (Budesonide/Formoterol [Symbicort 160-4.5 Mcg]) 2 puff IH BID [facility] Non-Formulary Medication (Insulin Detemir [Levemir Flextouch]) 42 units SQ BEDTIME [facility] Ondansetron HCl (Zofran Odt) 4 mg PO Q4H PRN PRN Reason: nausea, able to take PO Last Admin: 06/28/18 03:50 Dose: 4 mg Potassium Chloride (Klor-Con 10) 10 meq PO DAILY [facility] Last Admin: 06/28/18 10:00 Dose: 10 meq Prednisone (Prednisone) 40 mg PO DAILY [facility] Last Admin: 06/28/18 10:01 Dose: 40 mg Sodium Chloride (Saline Flush) 10 ml FLUSH ASDIRECTED PRN PRN Reason: Keep Vein Open Last Admin: 06/28/18 03:39 Dose: 10 ml Admin: 06/27/18 21:00 Dose: 10 ml Tiotropium [place] (Spiriva Handihaler) 18 mcg INH DAILY [facility] Meds: Medications Generic Name Dose Route Start Last Admin Trade Name Freq PRN Reason Stop Dose Admin Albuterol 0 gm 06/28/18 08:20 Ventolin Hfa INH Q6H PRN Dyspnea Albuterol/Ipratropium 3 ml 06/28/18 08:20 Duoneb 3.0-0.5 Mg/3 Ml INH BID PRN breathing Amlodipine Besylate 10 mg 06/28/18 09:00 06/28/18 10:00 Norvasc PO 10 mg DAILY [facility] Administration Amoxicillin/Clavulanate Potassium 1 tab 06/28/18 08:30 06/28/18 09:59 Augmentin 500 Mg\125 Mg PO 1 tab Q12H [facility] Administration Aspirin 325 mg 06/28/18 09:00 06/28/18 10:00 Ecotrin PO 325 mg DAILY [facility] Administration Atorvastatin Calcium 20 mg 06/28/18 21:00 Lipitor PO BEDTIME [facility] Citalopram Hydrobromide 40 mg 06/28/18 09:00 06/28/18 09:59 Celexa PO 40 mg DAILY [facility] Administration Docusate Sodium 100 mg 06/27/18 20:52 Colace PO BID PRN Constipation Enoxaparin Sodium 30 mg 06/28/18 08:45 06/28/18 09:59 Lovenox SUBCUT 30 mg Q24H [facility] Administration Insulin Human Lispro 10 unit 06/28/18 08:45 06/28/18 18:01 Humalog SUBCUT 10 units TIDMEALS [facility] Administration Losartan Potassium 100 mg 06/28/18 09:00 06/28/18 09:59 Cozaar PO 100 mg DAILY [facility] Administration Metoprolol Tartrate 100 mg 06/28/18 09:00 06/28/18 10:00 Lopressor PO 100 mg BID [facility] Administration Non-Formulary Medication 2 puff 06/28/18 09:00 Budesonide/Formoterol [Symbicort 160-4.5 Mcg] IH BID [facility] Non-Formulary Medication 42 units 06/28/18 21:00 Insulin Detemir [Levemir Flextouch] SQ BEDTIME [facility] Ondansetron HCl 4 mg 06/27/18 20:52 06/28/18 03:50 Zofran Odt PO 4 mg Q4H PRN Administration nausea, able to take PO Potassium Chloride 10 meq 06/28/18 09:00 06/28/18 10:00 Klor-Con 10 PO 10 meq DAILY [facility] Administration Prednisone 40 mg 06/28/18 09:00 06/28/18 10:01 Prednisone PO 40 mg DAILY [facility] Administration Sodium Chloride 10 ml 06/27/18 20:52 06/28/18 03:39 Saline Flush FLUSH 10 ml ASDIRECTED PRN Administration Keep Vein Open Tiotropium [place] 18 mcg 06/28/18 09:00 Spiriva Handihaler INH DAILY [facility] Discontinued Medications Generic Name Dose Route Start Last Admin Trade Name Freq PRN Reason Stop Dose Admin Albuterol 2.5 mg 06/27/18 20:52 06/28/18 03:38 Proventil Neb Soln NEB 06/28/18 02:53 2.5 mg Q2H [facility] Administration Albuterol/Ipratropium 3 ml 06/27/18 19:24 06/27/18 19:51 Duoneb 3.0-0.5 Mg/3 Ml NEB 06/27/18 19:25 3 ml ONETIME ONE Administration Insulin Human Lispro 7 unit 06/28/18 04:58 06/28/18 05:11 Humalog SUBCUT 06/28/18 04:59 7 unit ONETIME STA Administration Insulin Human Regular 0 unit 06/28/18 07:30 06/28/18 08:00 Humulin R SUBCUT Not Given BIDAC [facility] Protocol Insulin Human Regular 7 unit 06/28/18 04:37 06/28/18 05:14 Humulin R SUBCUT 06/28/18 04:38 Not Given ONETIME STA Methylprednisolone Sodium Succinate 125 mg 06/27/18 19:24 06/27/18 19:51 Solu-Medrol IM 06/27/18 19:25 125 mg ONETIME ONE Administration Methylprednisolone Sodium Succinate 125 mg 06/28/18 04:00 06/28/18 03:39 Solu-Medrol IVPUSH 125 mg Q8H [facility] Administration Departure - Departure Time of Disposition: 20:30 Disposition: Refer to Observation Condition: Fair Clinical Impression: COPD (chronic obstructive pulmonary disease) with chronic bronchitis - Discharge Information - My Orders Last 24 Hours: My Active Orders 06/27/18 19:24 RT Aerosol Therapy [RC] ASDIRECTED CXR [Chest 2V] [CR] Stat - Assessment/Plan Last 24 Hours: My Active Orders 06/27/18 19:24 RT Aerosol Therapy [RC] ASDIRECTED CXR [Chest 2V] [CR] Stat
[2018-06-27] MEDS ORDERED: Docusate Sodium 100 MG Cap PO PRN (20:52)
[2018-06-27] MEDS ORDERED: Ondansetron 4 MG Tab.DIS PO PRN (20:52)
[2018-06-27] MEDS: Sodium Chloride 0.9% 10 ML Syringe FLUSH PRN (21:00)
[2018-06-27] MEDS: Albuterol 0.083% 2.5 MG/3 ML Neb Soln NEB SCH ×2 (21:23→23:42)
[2018-06-28] MEDS: Albuterol 0.083% 2.5 MG/3 ML Neb Soln NEB SCH ×2 (01:41→03:38)
[2018-06-28] MEDS: Sodium Chloride 0.9% 10 ML Syringe FLUSH PRN (03:39)
[2018-06-28] MEDS ORDERED: methylPREDNISolone Sodium Succinate 125 MG/2 ML SDV IVPUSH SCH (04:00)
[2018-06-28] MEDS ORDERED: Insulin Regular, Human 100 Units/ML 3 ML Vial SUBCUT STA (04:37)
[2018-06-28] MEDS ORDERED: Insulin Lispro 100 Unit/ML 3 ML KwikPen SUBCUT STA (04:58)
[2018-06-28] MEDS ORDERED: Insulin Regular, Human 100 Units/ML 3 ML Vial SUBCUT SCH (07:30)
[2018-06-28] MEDS ORDERED: Albuterol 8 GM Inhaler INH PRN (08:20)
--- NOTE | 2018-06-28 08:32 | PCM.HP ---
H&P History of Present Illness - General Date of Service: 06/28/18 Admit Problem/Dx: Admission Diagnosis/Problem Admission Diagnosis/Problem COPD, Moderate chronic obstructive pulmonary disease Source of Information: Patient, Old Records History Limitations: Reports: No Limitations - History of Present Illness Initial Comments - Free Text/Narative: This is a 72-year-old male patient with a known history of COPD that for the last 2 years has been on 2 L oxygen nasal cannula. He said yesterday he started having green nasal drainage and cough. He started getting short of breath. His niece is a nurse told her to get into the hospital. He was seen in the ER and admitted for COPD exacerbation. He denies wheezing. He has some chest pain with coughing only. He denied fevers, chills, ear pain but had some sore throat. He also states he has some general joint aches from arthritis. - Related Data Allergies/Adverse Reactions: Allergies Allergy/AdvReac Type Severity Reaction Status Date / Time Sulfa (Sulfonamide Allergy Cannot Verified 06/27/18 19:18 Antibiotics) Remember Home Medications: Home Meds Aspirin 325 mg PO DAILY 02/22/15 [History] Citalopram [Citalopram HBr] 40 mg PO DAILY 02/22/15 [History] Insulin Detemir [Levemir Flextouch] 42 units SQ BEDTIME 02/22/15 [History] Metoprolol Tartrate 100 mg PO BID 02/22/15 [History] Budesonide/Formoterol [Symbicort 160-4.5 MCG] 2 puff IH BID 08/13/16 [History] Insulin Aspart [NovoLOG] 10 units SUBCUT TIDMEALS 08/13/16 [History] atorvaSTATin [Lipitor] 20 mg PO BEDTIME 08/13/16 [History] Albuterol Sulfate [Ventolin Hfa] 2 puff INH Q6H PRN 01/16/18 [History] Tiotropium [Spiriva HandiHaler] 18 mcg INH DAILY 01/16/18 [History] Albuterol/Ipratropium [DuoNeb 3.0-0.5 MG/3 ML] 3 ml IH BID PRN 01/17/18 [History ] amLODIPine Besylate [Amlodipine Besylate] 10 mg PO DAILY 01/17/18 [History] Losartan [Cozaar] 100 mg PO DAILY #30 tablet 02/06/18 [Rx] Insulin Aspart [NovoLOG] 10 unit SUBCUT TIDMEALS 06/27/18 [History] Potassium Chloride 10 meq DAILY 06/27/18 [History] Past Medical History HEENT History: Reports: Impaired Vision Cardiovascular History: Reports: Hypertension, [place], SOB on Exertion Respiratory History: Reports: Bronchitis, Recurrent, COPD, SOB, Other (See Below ) Other Respiratory History: Pneumonia Genitourinary History: Reports: Urinary Incontinence Other Genitourinary History: Inguinal hernia Musculoskeletal History: Reports: Arthritis Endocrine/Metabolic History: Reports: Diabetes, Type II Oncologic (Cancer) History: Reports: Prostate - Infectious Disease History Infectious Disease History: Reports: Chicken Pox, Measles - Past Surgical History HEENT Surgical History: Reports: Cataract Surgery, Other (See Below) Other HEENT Surgeries/Procedures: both eyes Cardiovascular Surgical History: Reports: None GI Surgical History: Reports: Appendectomy, Colonoscopy, Hernia, Inguinal Male Surgical History: Reports: Prostatectomy Endocrine Surgical History: Reports: None Musculoskeletal Surgical History: Reports: None Social & Family History - Family History Family Medical History: Noncontributory (He doesn't know) - Tobacco Use Smoking Status *Q: Current Every Day Smoker Years of Tobacco use: 60 Packs/Tins Daily: 0.5 Used Tobacco, but Quit: No - Caffeine Use Caffeine Use: Reports: Coffee Other Caffeine Use: 6-7 cups per day Caffeine Use Comment: 4 cups per day - Recreational Drug Use Recreational Drug Use: No - Living Situation & Occupation Living situation: Reports: , Alone Occupation: Retired H&P Review of Systems - Review of Systems: Review Of Systems: See Below General: Reports: No Symptoms HEENT: Reports: Rhinitis, Sinus Congestion, Sore Throat. Denies: Ear Pain, Headaches Pulmonary: Reports: Shortness of Breath, Cough, Sputum. Denies: Wheezing, Pleuritic Chest Pain, Hemoptysis Cardiovascular: Reports: No Symptoms Gastrointestinal: Reports: No Symptoms Genitourinary: Reports: No Symptoms Musculoskeletal: Reports: Joint Pain Skin: Reports: No Symptoms Psychiatric: Reports: No Symptoms Neurological: Reports: No Symptoms Hematologic/Lymphatic: Reports: No Symptoms Immunologic: Reports: No Symptoms Exam - Exam Exam: See Below - Vital Signs Vital Signs: Last Vital Signs Temp 98.7 F 06/28/18 03:43 Pulse 101 H 06/28/18 03:43 Resp 22 H 06/28/18 03:43 BP 120/68 06/28/18 03:43 Pulse Ox 89 L 06/28/18 03:43 Weight: 224 lb 11.2 oz - Exam Quality Assessment: Supplemental Oxygen General: Alert, Oriented, Cooperative HEENT: Mucosa Moist & Leonardo, Posterior Pharynx Clear, TMs Clear Neck: Supple, Trachea Midline. No: Thyromegaly Lungs: Clear to Auscultation, Normal Respiratory Effort. No: Crackles, Rales, Rhonchi Cardiovascular: Regular Rate, Regular Rhythm, Normal S1, Normal S2. No: Systolic Murmur, Diastolic Murmur GI/Abdominal Exam: Normal Bowel Sounds, Soft, Non-Tender, No Organomegaly, No Distention, No Abnormal Bruit, No Mass, Pelvis Stable Back Exam: Normal Inspection, Full Range of Motion Extremities: Normal Inspection, No Pedal Edema Skin: Warm, Dry, Intact Neurological: Normal Speech, Normal Tone Neuro Extensive - Mental Status: Alert, Oriented x3, Normal Mood/Affect, Normal Cognition Psychiatric: Alert, Normal Affect, Normal Mood - Patient Data Lab Results Last 24 hrs: Laboratory Results - last 24 hr 06/27/18 06/27/18 06/27/18 Range/Units 20:30 20:30 20:30 WBC 14.7 H (4.5-12.0) X10-3/uL RBC 4.85 (4.30-5.75) x10(6)uL Hgb 16.6 H (11.5-15.5) g/dL Hct 48.3 (30.0-51.3) % MCV 99.6 H (80-96) fL MCH 34.3 H (27.7-33.6) pg MCHC 34.4 (32.2-35.4) g/dL RDW 13.1 (11.5-15.5) % Plt Count 173 (125-369) X10(3)uL MPV 9.2 (7.4-10.4) fL Add Manual Diff Yes Neutrophils % (Manual) 85 H (46-82) % Lymphocytes % (Manual) 9 L (13-37) % Monocytes % (Manual) 4 (4-12) % Eosinophils % (Manual) 2 (0-5) % PT 10.1 (8.7-11.1) INR 1.04 (0.89-1.13) Sodium 136 (135-145) mmol/L Potassium 4.1 (3.5-5.3) mmol/L Chloride 99 L (100-110) mmol/L Carbon Dioxide 30 (21-32) mmol/L BUN 12 (7-18) mg/dL Creatinine 1.0 (0.70-1.30) mg/dL Est Cr Clr Drug Dosing 75.35 mL/min Estimated GFR (MDRD) > 60 (>60) BUN/Creatinine Ratio 12.0 (9-20) Glucose 138 H D (80-116) mg/dL POC Glucose (80-116) mg/dL Lactic Acid (0.4-2.2) mmol/L Calcium 8.6 (8.6-10.2) mg/dL Total Bilirubin (0.1-1.3) mg/dL AST (5-25) IU/L ALT (12-36) U/L Alkaline Phosphatase (56-112) IU/L Troponin I (<0.017-0.056) ng/mL Total Protein (6.0-8.0) g/dL Albumin (3.2-4.6) g/dL Globulin g/dL Albumin/Globulin Ratio 06/27/18 06/27/18 06/28/18 Range/Units 20:30 20:30 04:26 WBC (4.5-12.0) X10-3/uL RBC (4.30-5.75) x10(6)uL Hgb (11.5-15.5) g/dL Hct (30.0-51.3) % MCV (80-96) fL MCH (27.7-33.6) pg MCHC (32.2-35.4) g/dL RDW (11.5-15.5) % Plt Count (125-369) X10(3)uL MPV (7.4-10.4) fL Add Manual Diff Neutrophils % (Manual) (46-82) % Lymphocytes % (Manual) (13-37) % Monocytes % (Manual) (4-12) % Eosinophils % (Manual) (0-5) % PT (8.7-11.1) INR (0.89-1.13) Sodium (135-145) mmol/L Potassium (3.5-5.3) mmol/L Chloride (100-110) mmol/L Carbon Dioxide (21-32) mmol/L BUN (7-18) mg/dL Creatinine (0.70-1.30) mg/dL Est Cr Clr Drug Dosing mL/min Estimated GFR (MDRD) (>60) BUN/Creatinine Ratio (9-20) Glucose (80-116) mg/dL POC Glucose 302 H D (80-116) mg/dL Lactic Acid 1.4 (0.4-2.2) mmol/L Calcium (8.6-10.2) mg/dL Total Bilirubin (0.1-1.3) mg/dL AST (5-25) IU/L ALT (12-36) U/L Alkaline Phosphatase (56-112) IU/L Troponin I < 0.017 L (<0.017-0.056) ng/mL Total Protein (6.0-8.0) g/dL Albumin (3.2-4.6) g/dL Globulin g/dL Albumin/Globulin Ratio 06/28/18 06/28/18 06/28/18 Range/Units 05:40 07:50 07:50 WBC 12.9 H (4.5-12.0) X10-3/uL RBC 4.53 (4.30-5.75) x10(6)uL Hgb 15.3 (11.5-15.5) g/dL Hct 44.8 (30.0-51.3) % MCV 98.9 H (80-96) fL MCH 33.8 H (27.7-33.6) pg MCHC 34.2 (32.2-35.4) g/dL RDW 12.6 (11.5-15.5) % Plt Count 176 (125-369) X10(3)uL MPV 9.2 (7.4-10.4) fL Add Manual Diff Yes Neutrophils % (Manual) 93 H (46-82) % Lymphocytes % (Manual) 5 L (13-37) % Monocytes % (Manual) 2 L (4-12) % Eosinophils % (Manual) (0-5) % PT (8.7-11.1) INR (0.89-1.13) Sodium 133 L (135-145) mmol/L Potassium 3.8 (3.5-5.3) mmol/L Chloride 97 L (100-110) mmol/L Carbon Dioxide 23 (21-32) mmol/L BUN 19 H (7-18) mg/dL Creatinine 1.5 H (0.70-1.30) mg/dL Est Cr Clr Drug Dosing 50.23 mL/min Estimated GFR (MDRD) 46 L (>60) BUN/Creatinine Ratio 12.7 (9-20) Glucose 336 H D (80-116) mg/dL POC Glucose 346 H (80-116) mg/dL Lactic Acid (0.4-2.2) mmol/L Calcium 8.2 L (8.6-10.2) mg/dL Total Bilirubin 0.6 (0.1-1.3) mg/dL AST 13 D (5-25) IU/L ALT 19 D (12-36) U/L Alkaline Phosphatase 80 (56-112) IU/L Troponin I (<0.017-0.056) ng/mL Total Protein 7.2 (6.0-8.0) g/dL Albumin 3.2 (3.2-4.6) g/dL Globulin 4.0 g/dL Albumin/Globulin Ratio 0.8 Result Diagrams: 06/28/18 07:50 06/28/18 07:50 - Problem List (1) Sinusitis SNOMED Code(s): 78903695 ICD Code: J32.9 - CHRONIC SINUSITIS, UNSPECIFIED Status: Acute Current Visit: Yes (2) Palliative care status SNOMED Code(s): 331513477 ICD Code: Z51.5 - ENCOUNTER FOR PALLIATIVE CARE Status: Acute Current Visit: Yes (3) COPD (chronic obstructive pulmonary disease) with chronic bronchitis SNOMED Code(s): 203464350 ICD Code: J44.9 - CHRONIC OBSTRUCTIVE PULMONARY DISEASE, UNSPECIFIED Status : Acute Current Visit: Yes (4) Diabetes mellitus SNOMED Code(s): 79411423 ICD Code: E11.9 - TYPE 2 DIABETES MELLITUS WITHOUT COMPLICATIONS Status: Acute Current Visit: No Problem Details: Currently on sliding scale NovoLog and Levemir usual dose, 7 units NovoLog with meals still decreased from patient' s usual home dose of 10 units. Blood sugars have improved. No lows. (5) Hypoxia SNOMED Code(s): 143277853 ICD Code: R09.02 - HYPOXEMIA Status: Acute Current Visit: No Onset Date : 02/22/15 Problem Details: oxygen per nm Problem List Initiated/Reviewed/Updated: Yes Orders Last 24hrs: Active Orders 24 hr Category Date Time Status Admission Status [Patient Status] [ADT] Routine ADT 06/28/18 08:26 Ordered Bedrest Bathroom Privileges [RC] ASDIRECTED Care 06/27/18 20:52 Active Oxygen Therapy [RC] PRN Care 06/27/18 20:52 Active POC Glucose [Blood Glucose Check, Bedside] [] Care 06/28/18 03:56 Active QIDACANDBED Pulse Oximetry [RC] PRN Care 06/27/18 20:52 Active RT Aerosol Therapy [] ASDIRECTED Care 06/27/18 19:24 Active Vital Signs [] QSHIFT Care 06/27/18 20:52 Active Consistent Carbohydrate Diet [DIET] Diet 06/28/18 Lunch Ordered CXR [Chest 2V] [CR] Stat Exams 06/27/18 19:24 Taken Albuterol [Ventolin HFA] Med 06/28/18 08:20 Ordered 2 puff INH Q6H PRN Albuterol/Ipratropium [DuoNeb 3.0-0.5 MG/3 ML] Med 06/28/18 08:20 Ordered 3 ml INH BID PRN Amoxicillin/Clavulanate K [Augmentin 500 MG\125 MG] Med 06/28/18 08:30 Ordered 1 tab PO Q12HR Aspirin [Aspirin] Med 06/28/18 09:00 Ordered 325 mg PO DAILY Budesonide/Formoterol [Symbicort 160-4.5 MCG] Med 06/28/18 09:00 Ordered 2 puff IH BID Citalopram [Celexa] Med 06/28/18 09:00 Ordered 40 mg PO DAILY Docusate Sodium [Colace] Med 06/27/18 20:52 Active 100 mg PO BID PRN Insulin Aspart [NovoLOG] Med 06/28/18 12:00 Ordered 10 unit SUBCUT TIDMEALS Insulin Aspart [NovoLOG] Med 06/28/18 12:00 Ordered 10 units SUBCUT TIDMEALS Insulin Detemir [Levemir Flextouch] Med 06/28/18 21:00 Ordered 42 units SQ BEDTIME Losartan [Cozaar] Med 06/28/18 09:00 Ordered 100 mg PO DAILY Metoprolol Tartrate [Lopressor] Med 06/28/18 09:00 Ordered 100 mg PO BID Ondansetron [Zofran ODT] Med 06/27/18 20:52 Active 4 mg PO Q4H PRN Potassium Chloride [Potassium Chloride] Med 06/28/18 09:00 Ordered 10 meq PO DAILY Sodium Chloride 0.9% [Saline Flush] Med 06/27/18 20:52 Active 10 ml FLUSH ASDIRECTED PRN Tiotropium [Spiriva HandiHaler] Med 06/28/18 09:00 Ordered 18 mcg INH DAILY amLODIPine [Norvasc] Med 06/28/18 09:00 Ordered 10 mg PO DAILY atorvaSTATin [Lipitor] Med 06/28/18 21:00 Ordered 20 mg PO BEDTIME predniSONE Med 06/28/18 09:00 Ordered 40 mg PO DAILY Peripheral IV Insertion Adult [OM.PC] Routine Oth 06/27/18 20:52 Ordered Resuscitation Status Routine Resus Stat 06/27/18 20:22 Ordered Medication Orders Albuterol (Ventolin Hfa) 0 gm INH Q6H PRN PRN Reason: Dyspnea Albuterol/Ipratropium (Duoneb 3.0-0.5 Mg/3 Ml) 3 ml INH BID PRN PRN Reason: breathing Amlodipine Besylate (Norvasc) 10 mg PO DAILY [facility] Amoxicillin/Clavulanate Potassium (Augmentin 500 Mg\125 Mg) 1 tab PO Q12H [facility] Atorvastatin Calcium (Lipitor) 20 mg PO BEDTIME [facility] Citalopram Hydrobromide (Celexa) 40 mg PO DAILY [facility] Docusate Sodium (Colace) 100 mg PO BID PRN PRN Reason: Constipation Losartan Potassium (Cozaar) 100 mg PO DAILY [facility] Metoprolol Tartrate (Lopressor) 100 mg PO BID [facility] Non-Formulary Medication (Aspirin [Aspirin]) 325 mg PO DAILY [facility] Non-Formulary Medication (Budesonide/Formoterol [Symbicort 160-4.5 Mcg]) 2 puff IH BID [facility] Non-Formulary Medication (Insulin Aspart [Novolog]) 10 unit SUBCUT TIDMEALS [facility] Non-Formulary Medication (Insulin Aspart [Novolog]) 10 units SUBCUT TIDMEALS [facility] Non-Formulary Medication (Insulin Detemir [Levemir Flextouch]) 42 units SQ BEDTIME [facility] Ondansetron HCl (Zofran Odt) 4 mg PO Q4H PRN PRN Reason: nausea, able to take PO Last Admin: 06/28/18 03:50 Dose: 4 mg Potassium Chloride (Klor-Con 10) 10 meq PO DAILY [facility] Prednisone (Prednisone) 40 mg PO DAILY [facility] Sodium Chloride (Saline Flush) 10 ml FLUSH ASDIRECTED PRN PRN Reason: Keep Vein Open Last Admin: 06/28/18 03:39 Dose: 10 ml Admin: 06/27/18 21:00 Dose: 10 ml Tiotropium [place] (Spiriva Handihaler) 18 mcg INH DAILY [facility] Assessment/Plan Comment:: 1. Admit to observation. 2. Reviewed chest x-ray no acute changes from last x-ray in fact improved. 3. Discussed CODE STATUS he wants to be a full code. 4. Solu-Medrol. I change it to prednisone 5. Sliding scale was first administered I changed his regular insulin 6.VTE prophylaxis 7. Diabetic diet and Accu-Cheks 4 times a day 8. Continue O2 nasal cannula to keep between 88-92% 9. Continue home medications. 10. Up ad kenan.
[2018-06-28] MEDS: Insulin Lispro 100 Unit/ML 3 ML KwikPen SUBCUT SCH ×3 (08:55→18:01)
[2018-06-28] MEDS ORDERED: Tiotropium Inhaler 18 MCG Inhalation Powder Cap Kit of 5 INH SCH (09:00)
[2018-06-28] MEDS ORDERED: Non-Formulary Medication 1 Each (Budesonide/Formoterol [Symbicort 160-4.5 Mcg] 2 PUFF) IH SCH (09:00)
[2018-06-28] MEDS: Enoxaparin 30 MG/0.3 ML Syringe SUBCUT SCH (09:59)
[2018-06-28] MEDS: Losartan 100 MG Tab *PTOM PO SCH (09:59)
[2018-06-28] MEDS: Amoxicillin/Clavulanate K 500-125 MG Tab PO SCH ×2 (09:59→20:22)
[2018-06-28] MEDS: CITALOPRAM 40 MG PO SCH (09:59)
[2018-06-28] MEDS: amLODIPine 5 MG Tab *PTOM PO SCH (10:00)
[2018-06-28] MEDS: Aspirin 325 MG Tab.EC *PTOM PO SCH (10:00)
[2018-06-28] MEDS: Metoprolol Tartrate 100 MG Tab *PTOM PO SCH ×2 (10:00→20:21)
[2018-06-28] MEDS: Potassium Chloride 10 MEQ Tab.ER *PTOM PO SCH (10:00)
[2018-06-28] MEDS: predniSONE 20 MG Tab PO SCH (10:01)
[2018-06-28] MEDS ORDERED: Non-Formulary Medication 1 Each (Insulin Aspart [Novolog] 10 UNITS) SUBCUT SCH (12:00)
[2018-06-28] MEDS ORDERED: atorvaSTATin 20 MG Tab *PTOM PO SCH (21:00)
[2018-06-28] MEDS ORDERED: Insulin Glargine,Human Rec. Analog 100 Units/ML 3 ML Pen SUBCUT SCH (21:00)
[2018-06-28] MEDS ORDERED: INSULIN DETEMIR 42 UNIT SQ SCH (21:00)
[2018-06-28] MEDS: Albuterol/Ipratropium 3.0-0.5 MG/3 ML Neb Soln INH PRN (21:08)
[2018-06-29] MEDS ORDERED: cefTRIAXone 1,000 MG VIAL IVPUSH ONE (07:33)
[2018-06-29] MEDS: Albuterol/Ipratropium 3.0-0.5 MG/3 ML Neb Soln INH PRN (07:39)
[2018-06-29] MEDS: Insulin Lispro 100 Unit/ML 3 ML KwikPen SUBCUT SCH ×2 (08:50→12:27)
[2018-06-29] MEDS: CITALOPRAM 40 MG PO SCH (08:52)
[2018-06-29] MEDS: Metoprolol Tartrate 100 MG Tab *PTOM PO SCH (08:52)
[2018-06-29] MEDS: Amoxicillin/Clavulanate K 500-125 MG Tab PO SCH (08:52)
[2018-06-29] MEDS: Losartan 100 MG Tab *PTOM PO SCH (08:52)
[2018-06-29] MEDS: predniSONE 20 MG Tab PO SCH (08:52)
[2018-06-29] MEDS: Enoxaparin 30 MG/0.3 ML Syringe SUBCUT SCH (08:52)
[2018-06-29] MEDS: amLODIPine 5 MG Tab *PTOM PO SCH (08:53)
[2018-06-29] MEDS: Aspirin 325 MG Tab.EC *PTOM PO SCH (08:53)
[2018-06-29 08:55] VITALS: BP 117/75
[2018-06-29] MEDS: Potassium Chloride 10 MEQ Tab.ER *PTOM PO SCH (09:06)
--- NOTE | 2018-06-29 09:06 | PCM.PN ---
- General Info Date of Service: 06/29/18 Admission Dx/Problem (Free Text): Patient is without concerns. Breathing is at his baseline. He has no congestion , cough, fevers, chills, chest pain, dysuria, pyuria - Patient Data Vitals - Most Recent: Last Vital Signs Temp 98.0 F 06/29/18 00:00 Pulse 67 06/29/18 08:52 Resp 18 06/29/18 00:00 BP 117/75 06/29/18 08:53 Pulse Ox 86 L 06/29/18 00:00 Weight - Most Recent: 229 lb 6.4 oz Lab Results Last 24 Hours: Laboratory Results - last 24 hr 06/28/18 06/28/18 06/28/18 Range/Units 06:44 11:41 15:46 WBC (4.5-12.0) X10-3/uL RBC (4.30-5.75) x10(6)uL Hgb (11.5-15.5) g/dL Hct (30.0-51.3) % MCV (80-96) fL MCH (27.7-33.6) pg MCHC (32.2-35.4) g/dL RDW (11.5-15.5) % Plt Count (125-369) X10(3)uL MPV (7.4-10.4) fL Add Manual Diff Neutrophils % (Manual) (46-82) % Lymphocytes % (Manual) (13-37) % Monocytes % (Manual) (4-12) % Sodium (135-145) mmol/L Potassium (3.5-5.3) mmol/L Chloride (100-110) mmol/L Carbon Dioxide (21-32) mmol/L BUN (7-18) mg/dL Creatinine (0.70-1.30) mg/dL Est Cr Clr Drug Dosing mL/min Estimated GFR (MDRD) (>60) BUN/Creatinine Ratio (9-20) Glucose (80-116) mg/dL POC Glucose 345 H 342 H 345 H (80-116) mg/dL Calcium (8.6-10.2) mg/dL 06/28/18 06/28/18 06/29/18 Range/Units 16:35 20:25 06:20 WBC 25.6 H (4.5-12.0) X10-3/uL RBC 4.38 (4.30-5.75) x10(6)uL Hgb 14.6 (11.5-15.5) g/dL Hct 43.6 (30.0-51.3) % MCV 99.6 H (80-96) fL MCH 33.3 (27.7-33.6) pg MCHC 33.5 (32.2-35.4) g/dL RDW 13.0 (11.5-15.5) % Plt Count 174 (125-369) X10(3)uL MPV 9.1 (7.4-10.4) fL Add Manual Diff Yes Neutrophils % (Manual) 95 H (46-82) % Lymphocytes % (Manual) 4 L (13-37) % Monocytes % (Manual) 1 L (4-12) % Sodium 130 L (135-145) mmol/L Potassium 4.4 (3.5-5.3) mmol/L Chloride 96 L (100-110) mmol/L Carbon Dioxide 25 (21-32) mmol/L BUN 26 H (7-18) mg/dL Creatinine 1.2 (0.70-1.30) mg/dL Est Cr Clr Drug Dosing 62.79 mL/min Estimated GFR (MDRD) 59 L (>60) BUN/Creatinine Ratio 21.7 H (9-20) Glucose 304 H (80-116) mg/dL POC Glucose 316 H (80-116) mg/dL Calcium 8.3 L (8.6-10.2) mg/dL 06/29/18 06/29/18 Range/Units 06:20 06:34 WBC (4.5-12.0) X10-3/uL RBC (4.30-5.75) x10(6)uL Hgb (11.5-15.5) g/dL Hct (30.0-51.3) % MCV (80-96) fL MCH (27.7-33.6) pg MCHC (32.2-35.4) g/dL RDW (11.5-15.5) % Plt Count (125-369) X10(3)uL MPV (7.4-10.4) fL Add Manual Diff Neutrophils % (Manual) (46-82) % Lymphocytes % (Manual) (13-37) % Monocytes % (Manual) (4-12) % Sodium 135 (135-145) mmol/L Potassium 4.3 (3.5-5.3) mmol/L Chloride 101 D (100-110) mmol/L Carbon Dioxide 31 (21-32) mmol/L BUN 22 H (7-18) mg/dL Creatinine 1.0 (0.70-1.30) mg/dL Est Cr Clr Drug Dosing 75.35 mL/min Estimated GFR (MDRD) > 60 (>60) BUN/Creatinine Ratio 22.0 H (9-20) Glucose 192 H D (80-116) mg/dL POC Glucose 190 H D (80-116) mg/dL Calcium 8.1 L (8.6-10.2) mg/dL Med Orders - Current: Current Medications Albuterol (Ventolin Hfa) 0 gm INH Q6H PRN PRN Reason: Dyspnea Albuterol/Ipratropium (Duoneb 3.0-0.5 Mg/3 Ml) 3 ml INH BID PRN PRN Reason: breathing Last Admin: 06/29/18 07:39 Dose: 3 ml Amlodipine Besylate (Norvasc) 10 mg PO DAILY [facility] Last Admin: 06/29/18 08:53 Dose: 10 mg Amoxicillin/Clavulanate Potassium (Augmentin 500 Mg\125 Mg) 1 tab PO Q12H [facility] Last Admin: 06/29/18 08:52 Dose: 1 tab Aspirin (Ecotrin) 325 mg PO DAILY [facility] Last Admin: 06/29/18 08:53 Dose: 325 mg Atorvastatin Calcium (Lipitor) 20 mg PO BEDTIME [facility] Last Admin: 06/28/18 20:22 Dose: 20 mg Citalopram Hydrobromide (Celexa) 40 mg PO DAILY [facility] Last Admin: 06/29/18 08:52 Dose: 40 mg Docusate Sodium (Colace) 100 mg PO BID PRN PRN Reason: Constipation Enoxaparin Sodium (Lovenox) 30 mg SUBCUT Q24H [facility] Last Admin: 06/29/18 08:52 Dose: 30 mg Insulin Glargine (Lantus Solostar) 42 units SUBCUT BEDTIME [facility] Last Admin: 06/28/18 21:04 Dose: 42 units Insulin Human Lispro (Humalog) 10 unit SUBCUT TIDMEALS [facility] Last Admin: 06/29/18 08:50 Dose: 10 units Losartan Potassium (Cozaar) 100 mg PO DAILY [facility] Last Admin: 06/29/18 08:52 Dose: 100 mg Metoprolol Tartrate (Lopressor) 100 mg PO BID [facility] Last Admin: 06/29/18 08:52 Dose: 100 mg Non-Formulary Medication (Budesonide/Formoterol [Symbicort 160-4.5 Mcg]) 2 puff IH BID [facility] Non-Formulary Medication (Insulin Detemir [Levemir Flextouch]) 42 units SQ BEDTIME [facility] Ondansetron HCl (Zofran Odt) 4 mg PO Q4H PRN PRN Reason: nausea, able to take PO Last Admin: 06/28/18 03:50 Dose: 4 mg Potassium Chloride (Klor-Con 10) 10 meq PO DAILY [facility] Last Admin: 06/28/18 10:00 Dose: 10 meq Prednisone (Prednisone) 40 mg PO DAILY [facility] Last Admin: 06/29/18 08:52 Dose: 40 mg Sodium Chloride (Saline Flush) 10 ml FLUSH ASDIRECTED PRN PRN Reason: Keep Vein Open Last Admin: 06/28/18 03:39 Dose: 10 ml Tiotropium [place] (Spiriva Handihaler) 18 mcg INH DAILY [facility] Discontinued Medications Albuterol (Proventil Neb Soln) 2.5 mg NEB Q2H [facility] Stop: 06/28/18 02:53 Last Admin: 06/28/18 03:38 Dose: 2.5 mg Albuterol/Ipratropium (Duoneb 3.0-0.5 Mg/3 Ml) 3 ml NEB ONETIME ONE Stop: 06/27/18 19:25 Last Admin: 06/27/18 19:51 Dose: 3 ml Ceftriaxone Sodium (Rocephin) 1,000 mg IVPUSH ONETIME ONE Stop: 06/29/18 07:34 Insulin Human Lispro (Humalog) 7 unit SUBCUT ONETIME [facility] Stop: 06/28/18 04:59 Last Admin: 06/28/18 05:11 Dose: 7 unit Insulin Human Regular (Humulin R) 0 unit SUBCUT BIDAC [facility]; Protocol Last Admin: 06/28/18 08:00 Dose: Not Given Insulin Human Regular (Humulin R) 7 unit SUBCUT ONETIME STA Stop: 06/28/18 04:38 Last Admin: 06/28/18 05:14 Dose: Not Given Methylprednisolone Sodium Succinate (Solu-Medrol) 125 mg IM ONETIME ONE Stop: 06/27/18 19:25 Last Admin: 06/27/18 19:51 Dose: 125 mg Methylprednisolone Sodium Succinate (Solu-Medrol) 125 mg IVPUSH Q8H [facility] Last Admin: 06/28/18 03:39 Dose: 125 mg - Exam General: Alert, Oriented, Cooperative Neck: Supple Lungs: Normal Respiratory Effort, Rhonchi (Left base with decreased breath sound ) Cardiovascular: Regular Rate, Regular Rhythm, No Murmurs Extremities: No Pedal Edema - Problem List & Annotations (1) Palliative care status SNOMED Code(s): 696833867 Code(s): Z51.5 - ENCOUNTER FOR PALLIATIVE CARE Status: Acute Current Visit: Yes (2) COPD (chronic obstructive pulmonary disease) with chronic bronchitis SNOMED Code(s): 496748515 Code(s): J44.9 - CHRONIC OBSTRUCTIVE PULMONARY DISEASE, UNSPECIFIED Status : Acute Current Visit: Yes (3) Diabetes mellitus SNOMED Code(s): 29950656 Code(s): E11.9 - TYPE 2 DIABETES MELLITUS WITHOUT COMPLICATIONS Status: Acute Current Visit: No Annotation/Comment:: Currently on sliding scale NovoLog and Levemir usual dose, 7 units NovoLog with meals still decreased from patient's usual home dose of 10 units. Blood sugars have improved. No lows. (4) Hypoxia SNOMED Code(s): 950320297 Code(s): R09.02 - HYPOXEMIA Status: Acute Current Visit: No Onset Date : 02/22/15 Annotation/Comment:: oxygen per nc (5) Pneumonia SNOMED Code(s): 589798599 Code(s): J18.9 - PNEUMONIA, UNSPECIFIED ORGANISM Status: Acute Current Visit: Yes Qualifiers: Pneumonia type: due to unspecified organism Laterality: left Lung location: lower lobe of lung Qualified Code(s): J18.1 - Lobar pneumonia, unspecified organism - Problem List Review Problem List Initiated/Reviewed/Updated: Yes - My Orders Last 24 Hours: My Active Orders 06/28/18 08:20 Albuterol [Ventolin HFA] 0 gm INH Q6H PRN Albuterol/Ipratropium [DuoNeb 3.0-0.5 MG/3 ML] 3 ml INH BID PRN 06/28/18 08:26 Admission Status [Patient Status] [ADT] Routine 06/28/18 08:30 Amoxicillin/Clavulanate K [Augmentin 500 MG\125 MG] 1 tab PO Q12H 06/28/18 08:33 SCD [Sequential Compression Device] [OM.PC] Routine 06/28/18 08:45 Enoxaparin [Lovenox] 30 mg SUBCUT Q24H Insulin Lispro [HumaLOG] 10 unit SUBCUT TIDMEALS 06/28/18 09:00 Aspirin [Ecotrin] 325 mg PO DAILY Budesonide/Formoterol [Symbicort 160-4.5 MCG] 2 puff IH BID Citalopram [Celexa] 40 mg PO DAILY Losartan [Cozaar] 100 mg PO DAILY Metoprolol Tartrate [Lopressor] 100 mg PO BID Potassium Chloride [Klor-Con 10] 10 meq PO DAILY Tiotropium [Spiriva HandiHaler] 18 mcg INH DAILY amLODIPine [Norvasc] 10 mg PO DAILY predniSONE 40 mg PO DAILY 06/28/18 21:00 Insulin Detemir [Levemir Flextouch] 42 units SQ BEDTIME atorvaSTATin [Lipitor] 20 mg PO BEDTIME 06/28/18 Lunch Consistent Carbohydrate Diet [DIET] 06/29/18 08:02 CXR [Chest 2V] [CR] Routine - Plan Plan:: 1. Chest x-ray is ordered because of the little rhonchi in the left lower base. Showed very very small infiltrate. This is not hospital acquired. This was present in the reason he came in. 2. White count jumped from 14-25. This most likely is from steroids. 3. I don't see any signs of infection anywhere else. Patient actually is back to his baseline. 4. We'll discharged him home. I will give him a gram of Rocephin today and 40 mg of prednisone and then I'll place him on Augmentin 500 3 times a day for 7 days with a Z-Itz and prednisone 40 g a day for 3 days. I will be called to his pharmacy and he'll pick it up tomorrow. 5. Recheck with Shey Christensen in 1 week.
[2018-06-29] MEDS: Sodium Chloride 0.9% 10 ML Syringe FLUSH PRN (09:10)
--- NOTE | 2018-06-29 09:13 | PCM.DCSUM1 ---
Discharge Summary - Hospital Course Free Text/Narrative:: Hospital course-patient was admitted and the admitting doctor gave him Solu- Medrol 125 every 8 hours. I saw him the next morning and because he had green sputum from his nose and lungs started on Augmentin and stop the Solu-Medrol put on prednisone 40 mg a day. Patient by the next morning was feeling much better and breathing was better. He had no fevers or chills. White count was slightly elevated. When up to the mid 300s which concerned the patient. He was initially on a sliding scale of insulin I put him on his regular dose. With the 40 mg of prednisone his blood sugars went down into the 190s. After the first 12 hours the patient was basically back to his baseline for breathing with his home O2 [place] cannula 2 L. He had no symptoms of infection. His white count on day #2 went to 25,000 most likely from steroids. He did have a little bit of rhonchi in the left base and decreased breath sound. Did a chest x-ray there is questionable little infiltrate. Slit diagnosis a change from sinusitis to pneumonia. We are sending him home because he is doing well on home health. It Saturday so I gave him 1 g Rocephin and 40 mg of prednisone here. And tomorrow will be Saturday and he'll be on Augmentin 500 mg 3 times a day for 7 days, prednisone 40 mg for 3 days, and a Z-Itz. He is to follow-up with Shey Reyna in 1 week. Brief History: This is a 72-year-old male patient with a known history of COPD that for the last 2 years has been on 2 L oxygen nasal cannula. He said yesterday he started having green nasal drainage and cough. He started getting short of breath. His niece is a nurse told her to get into the hospital. He was seen in the ER and admitted for COPD exacerbation. He denies wheezing. He has some chest pain with coughing only. He denied fevers, chills, ear pain but had some sore throat. He also states he has some general joint aches from arthritis. Diagnosis: Stroke: No - Discharge Data Discharge Date: 06/29/18 Discharge Disposition: Home, Self-Care 01 Condition: Fair - Discharge Diagnosis/Problem(s) (1) Palliative care status SNOMED Code(s): 060187279 ICD Code: Z51.5 - ENCOUNTER FOR PALLIATIVE CARE Status: Acute Current Visit: Yes (2) COPD (chronic obstructive pulmonary disease) with chronic bronchitis SNOMED Code(s): 731323200 ICD Code: J44.9 - CHRONIC OBSTRUCTIVE PULMONARY DISEASE, UNSPECIFIED Status : Acute Current Visit: Yes (3) Diabetes mellitus SNOMED Code(s): 11116323 ICD Code: E11.9 - TYPE 2 DIABETES MELLITUS WITHOUT COMPLICATIONS Status: Acute Current Visit: No Problem Details: Currently on sliding scale NovoLog and Levemir usual dose, 7 units NovoLog with meals still decreased from patient' s usual home dose of 10 units. Blood sugars have improved. No lows. (4) Hypoxia SNOMED Code(s): 124332012 ICD Code: R09.02 - HYPOXEMIA Status: Acute Current Visit: No Onset Date : 02/22/15 Problem Details: oxygen per nc (5) Pneumonia SNOMED Code(s): 107385169 ICD Code: J18.9 - PNEUMONIA, UNSPECIFIED ORGANISM Status: Acute Current Visit: Yes Qualifiers: Pneumonia type: due to unspecified organism Laterality: left Lung location: lower lobe of lung Qualified Code(s): J18.1 - Lobar pneumonia, unspecified organism - Patient Instructions Diet: Diabetic Diet Activity: As Tolerated Driving: May Drive Today Showering/Bathing: May Shower Other/Special Instructions: 1. Recheck with Shey Reyna in 1 week. 2. Home health in regards to medication management, teaching, O2 therapy, home safety. 3. O2 2 L nasal cannula. - Discharge Plan Prescriptions/Med Rec: Amoxicillin/Clavulanate K [Augmentin 500-125 MG] 1 tab PO Q12H #21 tablet Azithromycin [Zithromax] 250 mg PO DAILY #6 tab predniSONE 40 mg PO DAILY #6 tablet Home Medications: Home Meds Aspirin 325 mg PO DAILY 02/22/15 [History] Citalopram [Citalopram HBr] 40 mg PO DAILY 02/22/15 [History] Insulin Detemir [Levemir Flextouch] 42 units SQ BEDTIME 02/22/15 [History] Metoprolol Tartrate 100 mg PO BID 02/22/15 [History] Budesonide/Formoterol [Symbicort 160-4.5 MCG] 2 puff IH BID 08/13/16 [History] Insulin Aspart [NovoLOG] 10 units SUBCUT TIDMEALS 08/13/16 [History] atorvaSTATin [Lipitor] 20 mg PO BEDTIME 08/13/16 [History] Albuterol Sulfate [Ventolin Hfa] 2 puff INH Q6H PRN 01/16/18 [History] Tiotropium [Spiriva HandiHaler] 18 mcg INH DAILY 01/16/18 [History] Albuterol/Ipratropium [DuoNeb 3.0-0.5 MG/3 ML] 3 ml IH BID PRN 01/17/18 [History ] amLODIPine Besylate [Amlodipine Besylate] 10 mg PO DAILY 01/17/18 [History] Losartan [Cozaar] 100 mg PO DAILY #30 tablet 02/06/18 [Rx] Insulin Aspart [NovoLOG] 10 unit SUBCUT TIDMEALS 06/27/18 [History] Potassium Chloride 10 meq DAILY 06/27/18 [History] Amoxicillin/Clavulanate K [Augmentin 500-125 MG] 1 tab PO Q12H #21 tablet [Rx] Azithromycin [Zithromax] 250 mg PO DAILY #6 tab 06/29/18 [Rx] predniSONE 40 mg PO DAILY #6 tablet 06/29/18 [Rx] Forms: ED Department Discharge Referrals: Shey Christensen [facility] [Primary Care Provider] - - Discharge Summary/Plan Comment DC Time >30 min.: No - Patient Data Vitals - Most Recent: Last Vital Signs Temp 98.0 F 06/29/18 00:00 Pulse 67 06/29/18 08:52 Resp 18 06/29/18 00:00 BP 117/75 06/29/18 08:53 Pulse Ox 86 L 06/29/18 00:00 Weight - Most Recent: 229 lb 6.4 oz Lab Results - Last 24 hrs: Laboratory Results - last 24 hr 06/28/18 06/28/18 06/28/18 Range/Units 06:44 11:41 15:46 WBC (4.5-12.0) X10-3/uL RBC (4.30-5.75) x10(6)uL Hgb (11.5-15.5) g/dL Hct (30.0-51.3) % MCV (80-96) fL MCH (27.7-33.6) pg MCHC (32.2-35.4) g/dL RDW (11.5-15.5) % Plt Count (125-369) X10(3)uL MPV (7.4-10.4) fL Add Manual Diff Neutrophils % (Manual) (46-82) % Lymphocytes % (Manual) (13-37) % Monocytes % (Manual) (4-12) % Sodium (135-145) mmol/L Potassium (3.5-5.3) mmol/L Chloride (100-110) mmol/L Carbon Dioxide (21-32) mmol/L BUN (7-18) mg/dL Creatinine (0.70-1.30) mg/dL Est Cr Clr Drug Dosing mL/min Estimated GFR (MDRD) (>60) BUN/Creatinine Ratio (9-20) Glucose (80-116) mg/dL POC Glucose 345 H 342 H 345 H (80-116) mg/dL Calcium (8.6-10.2) mg/dL 06/28/18 06/28/18 06/29/18 Range/Units 16:35 20:25 06:20 WBC 25.6 H (4.5-12.0) X10-3/uL RBC 4.38 (4.30-5.75) x10(6)uL Hgb 14.6 (11.5-15.5) g/dL Hct 43.6 (30.0-51.3) % MCV 99.6 H (80-96) fL MCH 33.3 (27.7-33.6) pg MCHC 33.5 (32.2-35.4) g/dL RDW 13.0 (11.5-15.5) % Plt Count 174 (125-369) X10(3)uL MPV 9.1 (7.4-10.4) fL Add Manual Diff Yes Neutrophils % (Manual) 95 H (46-82) % Lymphocytes % (Manual) 4 L (13-37) % Monocytes % (Manual) 1 L (4-12) % Sodium 130 L (135-145) mmol/L Potassium 4.4 (3.5-5.3) mmol/L Chloride 96 L (100-110) mmol/L Carbon Dioxide 25 (21-32) mmol/L BUN 26 H (7-18) mg/dL Creatinine 1.2 (0.70-1.30) mg/dL Est Cr Clr Drug Dosing 62.79 mL/min Estimated GFR (MDRD) 59 L (>60) BUN/Creatinine Ratio 21.7 H (9-20) Glucose 304 H (80-116) mg/dL POC Glucose 316 H (80-116) mg/dL Calcium 8.3 L (8.6-10.2) mg/dL 06/29/18 06/29/18 Range/Units 06:20 06:34 WBC (4.5-12.0) X10-3/uL RBC (4.30-5.75) x10(6)uL Hgb (11.5-15.5) g/dL Hct (30.0-51.3) % MCV (80-96) fL MCH (27.7-33.6) pg MCHC (32.2-35.4) g/dL RDW (11.5-15.5) % Plt Count (125-369) X10(3)uL MPV (7.4-10.4) fL Add Manual Diff Neutrophils % (Manual) (46-82) % Lymphocytes % (Manual) (13-37) % Monocytes % (Manual) (4-12) % Sodium 135 (135-145) mmol/L Potassium 4.3 (3.5-5.3) mmol/L Chloride 101 D (100-110) mmol/L Carbon Dioxide 31 (21-32) mmol/L BUN 22 H (7-18) mg/dL Creatinine 1.0 (0.70-1.30) mg/dL Est Cr Clr Drug Dosing 75.35 mL/min Estimated GFR (MDRD) > 60 (>60) BUN/Creatinine Ratio 22.0 H (9-20) Glucose 192 H D (80-116) mg/dL POC Glucose 190 H D (80-116) mg/dL Calcium 8.1 L (8.6-10.2) mg/dL Med Orders - Current: Current Medications Albuterol (Ventolin Hfa) 0 gm INH Q6H PRN PRN Reason: Dyspnea Albuterol/Ipratropium (Duoneb 3.0-0.5 Mg/3 Ml) 3 ml INH BID PRN PRN Reason: breathing Last Admin: 06/29/18 07:39 Dose: 3 ml Amlodipine Besylate (Norvasc) 10 mg PO DAILY [facility] Last Admin: 06/29/18 08:53 Dose: 10 mg Amoxicillin/Clavulanate Potassium (Augmentin 500 Mg\125 Mg) 1 tab PO Q12H [facility] Last Admin: 06/29/18 08:52 Dose: 1 tab Aspirin (Ecotrin) 325 mg PO DAILY [facility] Last Admin: 06/29/18 08:53 Dose: 325 mg Atorvastatin Calcium (Lipitor) 20 mg PO BEDTIME [facility] Last Admin: 06/28/18 20:22 Dose: 20 mg Citalopram Hydrobromide (Celexa) 40 mg PO DAILY [facility] Last Admin: 06/29/18 08:52 Dose: 40 mg Docusate Sodium (Colace) 100 mg PO BID PRN PRN Reason: Constipation Enoxaparin Sodium (Lovenox) 30 mg SUBCUT Q24H [facility] Last Admin: 06/29/18 08:52 Dose: 30 mg Insulin Glargine (Lantus Solostar) 42 units SUBCUT BEDTIME [facility] Last Admin: 06/28/18 21:04 Dose: 42 units Insulin Human Lispro (Humalog) 10 unit SUBCUT TIDMEALS [facility] Last Admin: 06/29/18 08:50 Dose: 10 units Losartan Potassium (Cozaar) 100 mg PO DAILY [facility] Last Admin: 06/29/18 08:52 Dose: 100 mg Metoprolol Tartrate (Lopressor) 100 mg PO BID [facility] Last Admin: 06/29/18 08:52 Dose: 100 mg Non-Formulary Medication (Budesonide/Formoterol [Symbicort 160-4.5 Mcg]) 2 puff IH BID [facility] Non-Formulary Medication (Insulin Detemir [Levemir Flextouch]) 42 units SQ BEDTIME [facility] Ondansetron HCl (Zofran Odt) 4 mg PO Q4H PRN PRN Reason: nausea, able to take PO Last Admin: 06/28/18 03:50 Dose: 4 mg Potassium Chloride (Klor-Con 10) 10 meq PO DAILY [facility] Last Admin: 06/29/18 09:06 Dose: Not Given Prednisone (Prednisone) 40 mg PO DAILY [facility] Last Admin: 06/29/18 08:52 Dose: 40 mg Sodium Chloride (Saline Flush) 10 ml FLUSH ASDIRECTED PRN PRN Reason: Keep Vein Open Last Admin: 06/29/18 09:10 Dose: 10 ml Tiotropium [place] (Spiriva Handihaler) 18 mcg INH DAILY [facility] Discontinued Medications Albuterol (Proventil Neb Soln) 2.5 mg NEB Q2H [facility] Stop: 06/28/18 02:53 Last Admin: 06/28/18 03:38 Dose: 2.5 mg Albuterol/Ipratropium (Duoneb 3.0-0.5 Mg/3 Ml) 3 ml NEB ONETIME ONE Stop: 06/27/18 19:25 Last Admin: 06/27/18 19:51 Dose: 3 ml Ceftriaxone Sodium (Rocephin) 1,000 mg IVPUSH ONETIME ONE Stop: 06/29/18 07:34 Last Admin: 06/29/18 09:06 Dose: 1,000 mg Insulin Human Lispro (Humalog) 7 unit SUBCUT ONETIME STA Stop: 06/28/18 04:59 Last Admin: 06/28/18 05:11 Dose: 7 unit Insulin Human Regular (Humulin R) 0 unit SUBCUT BIDAC [facility]; Protocol Last Admin: 06/28/18 08:00 Dose: Not Given Insulin Human Regular (Humulin R) 7 unit SUBCUT ONETIME STA Stop: 06/28/18 04:38 Last Admin: 06/28/18 05:14 Dose: Not Given Methylprednisolone Sodium Succinate (Solu-Medrol) 125 mg IM ONETIME ONE Stop: 06/27/18 19:25 Last Admin: 06/27/18 19:51 Dose: 125 mg Methylprednisolone Sodium Succinate (Solu-Medrol) 125 mg IVPUSH Q8H [facility] Last Admin: 06/28/18 03:39 Dose: 125 mg
--- NOTE | 2018-06-30 09:45 | CR ---
INDICATION: Short of breath. CHEST: PA and lateral views of the chest were obtained and compared with AP and lateral views of 01/19/2018, revealing increased flattening of diaphragm leaves with prominent AP diameter, hyperaeration - compatible with COPD - correlate clinically. Exacerbation of COPD may be present with this appearance. An active infiltrate or effusion was not identified. The heart is normal in size and shape. Degenerative changes are noted in the spine. Calcification is noted in the arch of the aorta. IMPRESSION: Findings suggest COPD, possibly with exacerbation. Report was called to Dr. Washburn at 2034 hours on 06/30/2018. [facility]
== END 2018-06-29 11:40 | disposition home or self-care (01) ==
LOC: FB.ED 18:59 → FB.MS 20:17
PROVIDERS: ADMIT Emergency Medicine; ATTEND Family Medicine
DX: J44.9 Chronic obstructive pulmonary disease, unspecified (principal); Z99.81 Dependence on supplemental oxygen; J18.1 Lobar pneumonia, unspecified organism; E11.9 Type 2 diabetes mellitus without complications; R09.02 Hypoxemia; M19.90 Unspecified osteoarthritis, unspecified site; F17.210 Nicotine dependence, cigarettes, uncomplicated; Z79.82 Long term (current) use of aspirin; Z79.4 Long term (current) use of insulin; Z79.899 Other long term (current) drug therapy; Z88.2 Allergy status to sulfonamides
CPT/HCPCS: 36415; 71046; 80048; 80053; 82962; 83605; 84484; 85025; 85610; 94640; 96372; 96374; 96375; 99217; 99219; 99284; 99285; A9270-GY; G0378; J0696; J1650; J1815; J1815-GY; J2930; J7050; J7620-GY

== ENCOUNTER 2019-09-02 15:10 | Inpatient (IN) | payer MEDICARE, OTHER ==
[2019-09-02] MEDS ORDERED: Acetaminophen 325 MG Tab PO PRN (15:34)
[2019-09-02] MEDS ORDERED: Albuterol 0.083% 2.5 MG/3 ML Neb Soln NEB PRN (16:36)
[2019-09-02] MEDS: Insulin Lispro 100 Unit/ML 3 ML KwikPen SUBCUT SCH (18:11)
[2019-09-02] MEDS: Piperacillin/Tazobactam 3.375 GM in Sodium Chloride 0.9% 50 ML IV SCH (18:45)
[2019-09-02] MEDS: Sodium Chloride 0.9% 10 ML Syringe FLUSH PRN (19:17)
[2019-09-02] MEDS ORDERED: Non-Formulary Medication 1 Each (Melatonin [Melatonin] 5 MG) PO SCH (21:00)
[2019-09-02] MEDS ORDERED: Albuterol/Ipratropium 3.0-0.5 MG/3 ML Neb Soln NEB SCH (21:00)
[2019-09-02] MEDS ORDERED: Insulin Glargine,Human Rec. Analog 100 Units/ML 3 ML Pen SUBCUT SCH (21:00)
[2019-09-02] MEDS: Arformoterol 15 MCG/2 ML Neb Soln NEB SCH (21:08)
[2019-09-02] MEDS: predniSONE 20 MG Tab PO SCH (21:08)
[2019-09-02] MEDS: Budesonide 0.5 MG/2 ML Neb Susp NEB SCH (21:08)
[2019-09-02] MEDS: Metoprolol Tartrate 100 MG Tab PO SCH (21:08)
[2019-09-02] MEDS: Saccharomyces Boulardii (Probiotic) 250 MG Cap PO SCH (21:13)
[2019-09-02] MEDS: Insulin Glargine,Human Rec. Analog 100 Units/ML 3 ML Pen SUBCUT SCH (21:15)
--- NOTE | 2019-09-03 00:36 | HP ---
ADMISSION DATE: 09/02/2019 CHIEF COMPLAINT: Breathing difficulty. HISTORY OF PRESENT ILLNESS: Mr. Baum is a 73-year-old man with severe COPD who was stable until approximately 6 days ago. At that time, he developed a cough productive of a copious amount of green phlegm. He says he felt terrible with chills and possible fever, weakness. He has continued to cough. His home health nurse came out today, sent him to the clinic where he was seen by Wu Wells and felt to be in respiratory distress. White count was elevated at 18,000 and he was sent over for admission. Mr. Baum states that his breathing is slightly better now than it was in the clinic. He is not currently having any fever, chills. He denies chest pain. He is still coughing, but is not productive of green phlegm anymore. Mr. Baum is on chronic home oxygen at 4 L/minute nasal cannula. He says since he has been sick for the past week, he has lost his appetite. PAST MEDICAL HISTORY: He has had previous admission for COPD exacerbation. He was hospitalized in January of 2018 with a tib-fib fracture on the left requiring ORIF. He has chronic COPD from 100+ pack-year history of smoking. He states he had a heart attack in the 1980s, but no heart problems since. He has type 2 diabetes, hypertension, hyperlipidemia. He has a history of prostate cancer treated surgically about 15 years ago successfully. He has had 1 testicle removed for a cyst and a right inguinal herniorrhaphy. He had tonsillectomy and adenoidectomy as a child. ORIF of the left ankle in 2017. He has had bilateral cataract surgery as well. MEDICATIONS: 1. Spiriva 2 puffs daily. 2. Potassium 10 mEq daily. 3. Metoprolol 100 mg b.i.d. 4. Losartan 100 mg daily. 5. Glargine insulin 40 units daily. 6. Lispro insulin 10 units t.i.d. 7. Citalopram 40 mg daily. 8. Aspirin 325 mg daily. 9. Amlodipine 10 mg daily. 10.DuoNebs q.i.d. p.r.n. ALLERGIES: Sulfa, causes swelling. HABITS: 100 pack-year history of smoking. He currently smokes about 5 cigarettes per day. No alcohol. 5 to 6 cups of coffee per day. FAMILY AND SOCIAL HISTORY: The patient's father in his 70s of unknown causes. The patient's mother at age 90. He denies major illnesses in the siblings. SOCIAL HISTORY: The patient has been for 12 years. He lives by himself in [place]. He has 3 children; 2 in [place], 1 in [place]. 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 REVIEW OF SYSTEMS: GENERAL: No seizures, syncope, or recent significant weight change. SKIN: Negative for rash. HEENT: No recent changes in hearing or vision. No sore throat or URI. He has had cough, see HPI. No palpitations or exertional type chest pain. No abdominal pain, nausea, or diarrhea. No joint inflammation, recent swelling, skin rash. PHYSICAL EXAMINATION: GENERAL: He is alert and a good historian. VITAL SIGNS: Blood pressure 111/77, pulse 83 and regular, respirations 14, O2 saturation 97% on 4 L nasal cannula, temperature 97.6, weight 206 pounds. SKIN: Anicteric, warm, dry without rash. HEENT: Shows clear TMs. Pupils are equal and reactive. Oropharynx is clear with absent lower teeth and very poor upper teeth. Adequate mucous membrane. Moisture is present. NECK: Supple. LUNGS: Have expiratory rhonchi and wheezes bilaterally with rales at the right base. HEART: Regular without murmur, rub or gallop. ABDOMEN: Obese, soft, nontender. No masses. No organomegaly. EXTREMITIES: Show intact dorsalis pedis and posterior tibial pulses. There is no edema. Motor exam is symmetric. LABORATORY DATA AND IMAGING: EKG shows normal sinus rhythm with no ischemic- appearing changes. Labs drawn at [facility]; sodium 138, potassium 3.8, BUN 29, creatinine 1.2, glucose 217. White count 18,300, hemoglobin 16.1. Chest x-ray report pending, not currently available for my review. ASSESSMENT: A 73-year-old man with; 1. Chronic COPD with exacerbation in probable right lower lobe pneumonia. 2. Type 2 diabetes. 3. Remote history of hypertension. 4. History of prostate cancer. 5. Hyperlipidemia. 6. Coronary artery disease with remote history of myocardial infarction. 7. Sulfa allergy. PLAN: He is admitted to the hospital. We will start nebulizer treatments, IV antibiotics, and anticipate a 48- to 72-hour hospital stay with plans for return to home upon recuperation. /[id number] SUSHIL/MARIA LUISA
[2019-09-03] MEDS: Sodium Chloride 0.9% 10 ML Syringe FLUSH PRN ×2 (00:47→07:09)
[2019-09-03] MEDS: Arformoterol 15 MCG/2 ML Neb Soln NEB SCH ×2 (06:06→20:33)
[2019-09-03] MEDS: Piperacillin/Tazobactam 3.375 GM in Sodium Chloride 0.9% 50 ML IV SCH ×3 (06:06)
[2019-09-03] MEDS: Budesonide 0.5 MG/2 ML Neb Susp NEB SCH ×2 (06:06→20:33)
[2019-09-03] MEDS: Insulin Lispro 100 Unit/ML 3 ML KwikPen SUBCUT SCH ×3 (07:57→17:34)
[2019-09-03] MEDS: Tiotropium Inhaler 18 MCG Inhalation Powder Cap Kit of 5 INH SCH (08:51)
[2019-09-03] MEDS: Aspirin 325 MG Tab.EC PO SCH (08:53)
[2019-09-03] MEDS: Losartan 100 MG Tab PO SCH (08:53)
[2019-09-03] MEDS: Citalopram 20 MG Tab PO SCH (08:53)
[2019-09-03] MEDS: Saccharomyces Boulardii (Probiotic) 250 MG Cap PO SCH ×2 (08:53→20:28)
[2019-09-03] MEDS: predniSONE 20 MG Tab PO SCH (08:54)
[2019-09-03] MEDS: Metoprolol Tartrate 100 MG Tab PO SCH ×2 (08:54→20:28)
[2019-09-03] MEDS: Potassium Chloride 10 MEQ Tab.ER PO SCH (08:54)
[2019-09-03] MEDS: amLODIPine 10 MG Tab PO SCH (08:54)
--- NOTE | 2019-09-03 13:12 | PN ---
DATE SEEN: 09/03/2019 HISTORY: Andreas is a 73-year-old man with severe COPD, who was sent in from [facility] yesterday for dyspnea and hypoxia. On admission, he was found to be short of breath. Blood pressure was 111/77, O2 saturation was 97% on 4 L of nasal cannula oxygen, and weight was 206 pounds. Laboratory showed white count of 18,000 in the clinic yesterday with a left shift. Labs on admission here included a negative troponin and an EKG negative for any ischemic change. This morning, he states he feels a lot better. PHYSICAL EXAMINATION: VITAL SIGNS: Blood pressure 116/68, pulse 85 and regular, O2 saturation 95% on 4 L nasal cannula oxygen. LUNGS: Have scattered rhonchi and quite distant breath sounds, making it very hard to hear in the lower half of each lung. There is an occasional expiratory wheeze. HEART: Regular. No murmur or gallop heard. ABDOMEN: Soft and nontender. EXTREMITIES: Show no edema. IMAGING DATA: Chest x-ray reviewed from the clinic yesterday shows heavy markings in the apical segment of the right upper lobe. ASSESSMENT: Chronic obstructive pulmonary disease exacerbation with possible pneumonia. PLAN: The patient has been on Zosyn IV. We will switch him to oral antibiotic. Continue his prednisone and plan for discharge to home tomorrow if he continues to improve. /[id number] SUSHIL/MARIA LUISA
[2019-09-03] MEDS: Amoxicillin/Clavulanate K 875-125 MG Tab PO SCH (15:18)
[2019-09-03] MEDS: Insulin Glargine,Human Rec. Analog 100 Units/ML 3 ML Pen SUBCUT SCH (20:25)
[2019-09-03] MEDS: predniSONE 10 MG Tab PO SCH (20:31)
[2019-09-04] MEDS: Arformoterol 15 MCG/2 ML Neb Soln NEB SCH (06:21)
[2019-09-04] MEDS: Budesonide 0.5 MG/2 ML Neb Susp NEB SCH (06:21)
[2019-09-04] MEDS: Insulin Lispro 100 Unit/ML 3 ML KwikPen SUBCUT SCH (07:46)
--- NOTE | 2019-09-04 08:50 | PCM.PN ---
- General Info Date of Service: 09/04/19 Admission Dx/Problem (Free Text): States he is doing better. He is cough is less is not productive. He is on home oxygen and he is actually on less oxygen here that he was at home. He denies fevers, chills, chest pain or leg swelling. - Patient Data Vitals - Most Recent: Last Vital Signs Temp 98.0 F 09/04/19 07:38 Pulse 76 09/04/19 07:38 Resp 20 09/04/19 07:38 BP 122/84 09/04/19 07:38 Pulse Ox 92 L 09/04/19 07:38 Weight - Most Recent: 203 lb 12.8 oz Lab Results Last 24 Hours: Laboratory Results - last 24 hr 09/03/19 09/03/19 09/03/19 Range/Units 09:20 09:20 12:06 WBC 12.6 H (4.5-12.0) X10-3/uL RBC 4.53 (4.30-5.75) x10(6)uL Hgb 15.1 (13.5-17.8) g/dL Hct 44.7 (30.0-51.3) % MCV 98.6 H (80-96) fL MCH 33.2 (27.7-33.6) pg MCHC 33.7 (32.2-35.4) g/dL RDW 12.4 (11.5-15.5) % Plt Count 173 (125-369) X10(3)uL MPV 9.2 (7.4-10.4) fL Neut % (Auto) 91.5 H (46-82) % Lymph % (Auto) 4.3 L (13-37) % [place] % (Auto) 4.0 (4-12) % Eos % (Auto) 0 L (1.0-5.0) % Baso % (Auto) 0 (0-2) % Neut # (Auto) 11.6 H (1.6-8.3) # Lymph # (Auto) 0.5 L (0.6-5.0) # [place] # (Auto) 0.5 (0.0-1.3) # Eos # (Auto) 0.0 (0.0-0.8) # Baso # (Auto) 0.0 (0.0-0.2) # Sodium 137 (135-145) mmol/L Potassium 3.6 (3.5-5.3) mmol/L Chloride 100 (100-110) mmol/L Carbon Dioxide 30 (21-32) mmol/L BUN 15 (7-18) mg/dL Creatinine 1.1 (0.70-1.30) mg/dL Est Cr Clr Drug Dosing 67.46 mL/min Estimated GFR (MDRD) > 60 (>60) BUN/Creatinine Ratio 13.6 (9-20) Glucose 331 H D (80-116) mg/dL POC Glucose 286 H D (80-116) mg/dL Calcium 8.6 (8.6-10.2) mg/dL Total Bilirubin 0.9 (0.1-1.3) mg/dL AST 12 (5-25) IU/L ALT 12 (12-36) U/L Alkaline Phosphatase 71 (56-112) IU/L Total Protein 6.8 (6.0-8.0) g/dL Albumin 3.1 L (3.2-4.6) g/dL Globulin 3.7 g/dL Albumin/Globulin Ratio 0.8 09/03/19 09/03/19 09/04/19 Range/Units 16:37 20:25 07:03 WBC (4.5-12.0) X10-3/uL RBC (4.30-5.75) x10(6)uL Hgb (13.5-17.8) g/dL Hct (30.0-51.3) % MCV (80-96) fL MCH (27.7-33.6) pg MCHC (32.2-35.4) g/dL RDW (11.5-15.5) % Plt Count (125-369) X10(3)uL MPV (7.4-10.4) fL Neut % (Auto) (46-82) % Lymph % (Auto) (13-37) % [place] % (Auto) (4-12) % Eos % (Auto) (1.0-5.0) % Baso % (Auto) (0-2) % Neut # (Auto) (1.6-8.3) # Lymph # (Auto) (0.6-5.0) # [place] # (Auto) (0.0-1.3) # Eos # (Auto) (0.0-0.8) # Baso # (Auto) (0.0-0.2) # Sodium (135-145) mmol/L Potassium (3.5-5.3) mmol/L Chloride (100-110) mmol/L Carbon Dioxide (21-32) mmol/L BUN (7-18) mg/dL Creatinine (0.70-1.30) mg/dL Est Cr Clr Drug Dosing mL/min Estimated GFR (MDRD) (>60) BUN/Creatinine Ratio (9-20) Glucose (80-116) mg/dL POC Glucose 298 H 302 H 190 H D (80-116) mg/dL Calcium (8.6-10.2) mg/dL Total Bilirubin (0.1-1.3) mg/dL AST (5-25) IU/L ALT (12-36) U/L Alkaline Phosphatase (56-112) IU/L Total Protein (6.0-8.0) g/dL Albumin (3.2-4.6) g/dL Globulin g/dL Albumin/Globulin Ratio Med Orders - Current: Current Medications Acetaminophen (Tylenol) 650 mg PO Q4H PRN PRN Reason: Pain (Mild 1-3)/fever Albuterol (Proventil Neb Soln) 2.5 mg NEB Q6H PRN PRN Reason: Dyspnea Amlodipine Besylate (Norvasc) 10 mg PO DAILY [facility] Last Admin: 09/03/19 08:54 Dose: 10 mg Amoxicillin/Clavulanate Potassium (Augmentin 875 Mg/125 Mg) 1 tab PO BID [facility] Last Admin: 09/03/19 15:18 Dose: 1 tab Arformoterol Tartrate (Brovana) 15 mcg NEB BIDRT [facility] Last Admin: 09/04/19 06:21 Dose: 15 mcg Aspirin (Ecotrin) 325 mg PO DAILY [facility] Last Admin: 09/03/19 08:53 Dose: 325 mg Budesonide (Pulmicort) 0.5 mg NEB BIDRT [facility] Last Admin: 09/04/19 06:21 Dose: 0.5 mg Citalopram Hydrobromide (Celexa) 40 mg PO DAILY [facility] Last Admin: 09/03/19 08:53 Dose: 40 mg Insulin Glargine (Lantus Solostar) 40 units SUBCUT BEDTIME [facility] Last Admin: 09/03/19 20:25 Dose: 40 units Insulin Human Lispro (Humalog) 10 unit SUBCUT TIDMEALS [facility] Last Admin: 09/04/19 07:46 Dose: 10 units Losartan Potassium (Cozaar) 100 mg PO DAILY [facility] Last Admin: 09/03/19 08:53 Dose: 100 mg Metoprolol Tartrate (Lopressor) 100 mg PO BID [facility] Last Admin: 09/03/19 20:28 Dose: 100 mg Potassium Chloride (Klor-Con 10) 10 meq PO DAILY [facility] Last Admin: 09/03/19 08:54 Dose: 10 meq Prednisone (Prednisone) 10 mg PO BID [facility] Last Admin: 09/03/19 20:31 Dose: 10 mg Saccharomyces Boulardii (Florastor) 250 mg PO BID [facility] Last Admin: 09/03/19 20:28 Dose: 250 mg Sodium Chloride (Saline Flush) 10 ml FLUSH ASDIRECTED PRN PRN Reason: Keep Vein Open Last Admin: 09/03/19 07:09 Dose: 10 ml Tiotropium [place] (Spiriva Handihaler) 18 mcg INH DAILY [facility] Last Admin: 09/03/19 08:51 Dose: 18 mcg Discontinued Medications Albuterol/Ipratropium (Duoneb 3.0-0.5 Mg/3 Ml) 3 ml NEB BID [facility] Piperacillin Sod/Tazobactam (Sod 3.375 gm/ Sodium Chloride) 50 mls @ 100 mls/ hr IV Q6H [facility] Last Admin: 09/03/19 06:06 Dose: 100 mls/hr Insulin Glargine (Lantus Solostar) 40 units SUBCUT BEDTIME [facility] Prednisone (Prednisone) 20 mg PO BID [facility] Last Admin: 09/03/19 08:54 Dose: 20 mg - Exam General: Alert, Oriented Lungs: Clear to Auscultation, Normal Respiratory Effort, Crackles, Rales, Rhonchi Cardiovascular: Regular Rate, Regular Rhythm, No Murmurs Extremities: No Pedal Edema - Problem List & Annotations (1) Pneumonia SNOMED Code(s): 984389665 Code(s): J18.9 - PNEUMONIA, UNSPECIFIED ORGANISM Status: Acute Current Visit: Yes (2) Bilateral pneumonia SNOMED Code(s): 570104009 Code(s): J18.9 - PNEUMONIA, UNSPECIFIED ORGANISM Status: Acute Current Visit: No Qualifiers: Annotation/Comment:: S/P scheduled albuterol nebs, IV levaquin, IV zosyn and O2 via NC. For oral levaquin at discharge. (3) COPD exacerbation SNOMED Code(s): 596298952 Code(s): J44.1 - CHRONIC OBSTRUCTIVE PULMONARY DISEASE W (ACUTE) EXACERBATION Status: Acute Current Visit: No (4) Hypoxia SNOMED Code(s): 434503064 Code(s): R09.02 - HYPOXEMIA Status: Acute Current Visit: No Onset Date : 02/22/15 Annotation/Comment:: oxygen per nc (5) Palliative care status SNOMED Code(s): 939252462 Code(s): Z51.5 - ENCOUNTER FOR PALLIATIVE CARE Status: Acute Current Visit: No - Problem List Review Problem List Initiated/Reviewed/Updated: Yes - Plan Plan:: 1. Discharge to home on prednisone and Augmentin. He'll continue to follow-up home health and recheck in a week with his regular provider.
--- NOTE | 2019-09-04 09:02 | PCM.DCSUM1 ---
Discharge Summary - Hospital Course Free Text/Narrative:: Hospital course-patient was admitted put on Zosyn and prednisone 20 mg by mouth twice a day. Patient improved very fast. I day #2 is prednisone was changed to 10 mg twice a day and his Zosyn was stopped teaspoon Augmentin. Patient's productive sputum stop. His breathing improved. He states he is normally on 4 L of O2 at home. He was down to 2 L here. His fevers or chills left and he felt he could go home. His white count went 12,800. Blood sugars on the prednisone and infection were around 190-280. Brief History: Is a 73-year-old male patient with COPD oxygen dependent. He had 60 history of chills, fevers, weakness, copious amounts of green phlegm. He was seen by his home health provider who sent him in. Wu Wells saw him diagnosed ammonia COPD exacerbation. White count was 18,000 and was sent to the hospital for admission. Diagnosis: Stroke: No - Discharge Data Discharge Date: 09/04/19 Discharge Disposition: Home, W Home Health Agency 06 Condition: Good - Referral to Home Health Date of Face to Face Encounter: 09/04/19 Reason for Homebound Status: 1. Hypoxia, O2, pneumonia, hypoxia with exertion. Primary Care Physician: Shey Christensen NP Skilled Need: See discharge orders - Discharge Diagnosis/Problem(s) (1) Pneumonia SNOMED Code(s): 371736946 ICD Code: J18.9 - PNEUMONIA, UNSPECIFIED ORGANISM Status: Acute Current Visit: Yes (2) Bilateral pneumonia SNOMED Code(s): 880586944 ICD Code: J18.9 - PNEUMONIA, UNSPECIFIED ORGANISM Status: Acute Current Visit: No Problem Details: S/P scheduled albuterol nebs, IV levaquin, IV zosyn and O2 via NC. For oral levaquin at discharge. Qualifiers: (3) COPD exacerbation SNOMED Code(s): 486859371 ICD Code: J44.1 - CHRONIC OBSTRUCTIVE PULMONARY DISEASE W (ACUTE) EXACERBATION Status: Acute Current Visit: No (4) Hypoxia SNOMED Code(s): 157003469 ICD Code: R09.02 - HYPOXEMIA Status: Acute Current Visit: No Onset Date : 02/22/15 Problem Details: oxygen per nc (5) Palliative care status SNOMED Code(s): 134031427 ICD Code: Z51.5 - ENCOUNTER FOR PALLIATIVE CARE Status: Acute Current Visit: No - Patient Instructions Diet: Regular Diet as Tolerated Activity: As Tolerated Driving: May Drive Today Showering/Bathing: May Shower Other/Special Instructions: 1. Recheck with Shey Reyna in 1 week. 2. Home health. [id number] today 09/04/19. Home health status for pneumonia, COPD exacerbation oxygen dependent. Patient has a skilled need for medication management. - Discharge Plan Prescriptions/Med Rec: Amoxicillin/Clavulanate K [Augmentin 875-125 MG] 1 tab PO BID #16 tablet predniSONE 10 mg PO BID #10 tablet Home Medications: Home Meds Aspirin 325 mg PO DAILY 02/22/15 [History] Citalopram [Citalopram HBr] 40 mg PO DAILY 02/22/15 [History] Insulin Detemir [Levemir Flextouch] 40 units SQ BEDTIME 02/22/15 [History] Metoprolol Tartrate 100 mg PO BID 02/22/15 [History] Insulin Aspart [NovoLOG] 10 units SUBCUT TIDMEALS 08/13/16 [History] atorvaSTATin [Lipitor] 20 mg PO BEDTIME 08/13/16 [History] Albuterol Sulfate [Ventolin Hfa] 1 - 2 puff INH Q6H PRN 01/16/18 [History] Albuterol/Ipratropium [DuoNeb 3.0-0.5 MG/3 ML] 3 ml IH Q6H PRN 01/17/18 [History ] Losartan [Cozaar] 100 mg PO DAILY #30 tablet 02/06/18 [Rx] Budesonide [Pulmicort] 0.5 mg IH BID 09/13/18 [History] Potassium Chloride 10 meq PO DAILY 09/13/18 [History] Albuterol/Ipratropium [DuoNeb 3.0-0.5 MG/3 ML] 3 ml IH BID 09/15/18 [History] Tiotropium [place] [Spiriva Respimat] 2 puff IH DAILY 09/15/18 [History] Acetaminophen [Tylenol] 650 mg PO Q6H PRN 09/02/19 [History] Formoterol Fumarate [Perforomist] 2 ml IH BID 09/02/19 [History] amLODIPine Besylate [Amlodipine Besylate] 10 mg PO DAILY 09/02/19 [History] Amoxicillin/Clavulanate K [Augmentin 875-125 MG] 1 tab PO BID #16 tablet [Rx] predniSONE 10 mg PO BID #10 tablet 09/04/19 [Rx] Oxygen Therapy Mode: Nasal Cannula Oxygen Flow Rate (L/min): 4 Patient Handouts: Fall Prevention in Hospitals, Adult, Venous Thromboembolism Prevention, Community-Acquired Pneumonia, Adult, [id number] - Discharge Summary/Plan Comment DC Time >30 min.: No - Patient Data Vitals - Most Recent: Last Vital Signs Temp 98.0 F 09/04/19 07:38 Pulse 76 09/04/19 07:38 Resp 20 09/04/19 07:38 BP 122/84 09/04/19 07:38 Pulse Ox 92 L 09/04/19 07:38 Weight - Most Recent: 203 lb 12.8 oz Lab Results - Last 24 hrs: Laboratory Results - last 24 hr 09/03/19 09/03/19 09/03/19 Range/Units 09:20 09:20 12:06 WBC 12.6 H (4.5-12.0) X10-3/uL RBC 4.53 (4.30-5.75) x10(6)uL Hgb 15.1 (13.5-17.8) g/dL Hct 44.7 (30.0-51.3) % MCV 98.6 H (80-96) fL MCH 33.2 (27.7-33.6) pg MCHC 33.7 (32.2-35.4) g/dL RDW 12.4 (11.5-15.5) % Plt Count 173 (125-369) X10(3)uL MPV 9.2 (7.4-10.4) fL Neut % (Auto) 91.5 H (46-82) % Lymph % (Auto) 4.3 L (13-37) % [place] % (Auto) 4.0 (4-12) % Eos % (Auto) 0 L (1.0-5.0) % Baso % (Auto) 0 (0-2) % Neut # (Auto) 11.6 H (1.6-8.3) # Lymph # (Auto) 0.5 L (0.6-5.0) # [place] # (Auto) 0.5 (0.0-1.3) # Eos # (Auto) 0.0 (0.0-0.8) # Baso # (Auto) 0.0 (0.0-0.2) # Sodium 137 (135-145) mmol/L Potassium 3.6 (3.5-5.3) mmol/L Chloride 100 (100-110) mmol/L Carbon Dioxide 30 (21-32) mmol/L BUN 15 (7-18) mg/dL Creatinine 1.1 (0.70-1.30) mg/dL Est Cr Clr Drug Dosing 67.46 mL/min Estimated GFR (MDRD) > 60 (>60) BUN/Creatinine Ratio 13.6 (9-20) Glucose 331 H D (80-116) mg/dL POC Glucose 286 H D (80-116) mg/dL Calcium 8.6 (8.6-10.2) mg/dL Total Bilirubin 0.9 (0.1-1.3) mg/dL AST 12 (5-25) IU/L ALT 12 (12-36) U/L Alkaline Phosphatase 71 (56-112) IU/L Total Protein 6.8 (6.0-8.0) g/dL Albumin 3.1 L (3.2-4.6) g/dL Globulin 3.7 g/dL Albumin/Globulin Ratio 0.8 09/03/19 09/03/19 09/04/19 Range/Units 16:37 20:25 07:03 WBC (4.5-12.0) X10-3/uL RBC (4.30-5.75) x10(6)uL Hgb (13.5-17.8) g/dL Hct (30.0-51.3) % MCV (80-96) fL MCH (27.7-33.6) pg MCHC (32.2-35.4) g/dL RDW (11.5-15.5) % Plt Count (125-369) X10(3)uL MPV (7.4-10.4) fL Neut % (Auto) (46-82) % Lymph % (Auto) (13-37) % [place] % (Auto) (4-12) % Eos % (Auto) (1.0-5.0) % Baso % (Auto) (0-2) % Neut # (Auto) (1.6-8.3) # Lymph # (Auto) (0.6-5.0) # [place] # (Auto) (0.0-1.3) # Eos # (Auto) (0.0-0.8) # Baso # (Auto) (0.0-0.2) # Sodium (135-145) mmol/L Potassium (3.5-5.3) mmol/L Chloride (100-110) mmol/L Carbon Dioxide (21-32) mmol/L BUN (7-18) mg/dL Creatinine (0.70-1.30) mg/dL Est Cr Clr Drug Dosing mL/min Estimated GFR (MDRD) (>60) BUN/Creatinine Ratio (9-20) Glucose (80-116) mg/dL POC Glucose 298 H 302 H 190 H D (80-116) mg/dL Calcium (8.6-10.2) mg/dL Total Bilirubin (0.1-1.3) mg/dL AST (5-25) IU/L ALT (12-36) U/L Alkaline Phosphatase (56-112) IU/L Total Protein (6.0-8.0) g/dL Albumin (3.2-4.6) g/dL Globulin g/dL Albumin/Globulin Ratio Med Orders - Current: Current Medications Acetaminophen (Tylenol) 650 mg PO Q4H PRN PRN Reason: Pain (Mild 1-3)/fever Albuterol (Proventil Neb Soln) 2.5 mg NEB Q6H PRN PRN Reason: Dyspnea Amlodipine Besylate (Norvasc) 10 mg PO DAILY [facility] Last Admin: 09/03/19 08:54 Dose: 10 mg Amoxicillin/Clavulanate Potassium (Augmentin 875 Mg/125 Mg) 1 tab PO BID [facility] Last Admin: 09/03/19 15:18 Dose: 1 tab Arformoterol Tartrate (Brovana) 15 mcg NEB BIDRT [facility] Last Admin: 09/04/19 06:21 Dose: 15 mcg Aspirin (Ecotrin) 325 mg PO DAILY [facility] Last Admin: 09/03/19 08:53 Dose: 325 mg Budesonide (Pulmicort) 0.5 mg NEB BIDRT [facility] Last Admin: 09/04/19 06:21 Dose: 0.5 mg Citalopram Hydrobromide (Celexa) 40 mg PO DAILY [facility] Last Admin: 09/03/19 08:53 Dose: 40 mg Insulin Glargine (Lantus Solostar) 40 units SUBCUT BEDTIME [facility] Last Admin: 09/03/19 20:25 Dose: 40 units Insulin Human Lispro (Humalog) 10 unit SUBCUT TIDMEALS [facility] Last Admin: 09/04/19 07:46 Dose: 10 units Losartan Potassium (Cozaar) 100 mg PO DAILY [facility] Last Admin: 09/03/19 08:53 Dose: 100 mg Metoprolol Tartrate (Lopressor) 100 mg PO BID [facility] Last Admin: 09/03/19 20:28 Dose: 100 mg Potassium Chloride (Klor-Con 10) 10 meq PO DAILY [facility] Last Admin: 09/03/19 08:54 Dose: 10 meq Prednisone (Prednisone) 10 mg PO BID [facility] Last Admin: 09/03/19 20:31 Dose: 10 mg Saccharomyces Boulardii (Florastor) 250 mg PO BID [facility] Last Admin: 09/03/19 20:28 Dose: 250 mg Sodium Chloride (Saline Flush) 10 ml FLUSH ASDIRECTED PRN PRN Reason: Keep Vein Open Last Admin: 09/03/19 07:09 Dose: 10 ml Tiotropium [place] (Spiriva Handihaler) 18 mcg INH DAILY [facility] Last Admin: 09/03/19 08:51 Dose: 18 mcg Discontinued Medications Albuterol/Ipratropium (Duoneb 3.0-0.5 Mg/3 Ml) 3 ml NEB BID [facility] Piperacillin Sod/Tazobactam (Sod 3.375 gm/ Sodium Chloride) 50 mls @ 100 mls/ hr IV Q6H [facility] Last Admin: 09/03/19 06:06 Dose: 100 mls/hr Insulin Glargine (Lantus Solostar) 40 units SUBCUT BEDTIME [facility] Prednisone (Prednisone) 20 mg PO BID [facility] Last Admin: 09/03/19 08:54 Dose: 20 mg
[2019-09-04] MEDS: Amoxicillin/Clavulanate K 875-125 MG Tab PO SCH (09:36)
[2019-09-04] MEDS: Citalopram 20 MG Tab PO SCH (09:36)
[2019-09-04] MEDS: Losartan 100 MG Tab PO SCH (09:39)
[2019-09-04] MEDS: Potassium Chloride 10 MEQ Tab.ER PO SCH (09:40)
[2019-09-04] MEDS: amLODIPine 10 MG Tab PO SCH (09:40)
[2019-09-04] MEDS: Metoprolol Tartrate 100 MG Tab PO SCH (09:40)
[2019-09-04] MEDS: Saccharomyces Boulardii (Probiotic) 250 MG Cap PO SCH (09:40)
[2019-09-04 09:41] VITALS: BP 140/84; PULSE 72
[2019-09-04] MEDS: predniSONE 10 MG Tab PO SCH (09:41)
[2019-09-04] MEDS: Tiotropium Inhaler 18 MCG Inhalation Powder Cap Kit of 5 INH SCH (09:41)
[2019-09-04] MEDS: Aspirin 325 MG Tab.EC PO SCH (09:41)
--- NOTE | 2019-09-04 13:31 | CR ---
INDICATION: Dyspnea. CHEST: PA and lateral views of the chest were obtained 09/04/19 and compared with 09/13/18 and 06/29/18, again revealing the heart to be normal in size and shape. Prominent central vasculature is again noted. Prominent AP diameter, minimally flattened diaphragm leaves, and hyperaeration suggest COPD, which is likely progressive. A definite consolidating pneumonia was not identified; however, somewhat heavy markings at the lung bases posteriorly bilaterally with some blunting of left costophrenic angle and right posterior sulcus raise question of minimal bibasilar pneumonia and pleuritis. This appearance could also be on the basis of interval fibrosis, compared with the previous study, and should be correlated clinically. The aorta is calcified in the arch area. Degenerative changes of moderate degree are noted in the lower thoracic spine. IMPRESSION: 1. Possible minimal bibasilar pneumonia and pleuritis. 2. Likely there is progressive COPD. 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
== END 2019-09-04 11:25 | disposition home health service (06) | DRG 190 ==
LOC: FB.MS 15:48
PROVIDERS: ADMIT Family Medicine; ATTEND Family Medicine
DX: J44.0 Chronic obstructive pulmonary disease with (acute) lower respiratory infection (principal); J18.9 Pneumonia, unspecified organism; J44.1 Chronic obstructive pulmonary disease with (acute) exacerbation; Z51.5 Encounter for palliative care; R09.02 Hypoxemia; E11.9 Type 2 diabetes mellitus without complications; I10 Essential (primary) hypertension; F17.210 Nicotine dependence, cigarettes, uncomplicated; I25.10 Atherosclerotic heart disease of native coronary artery without angina pectoris; I25.2 Old myocardial infarction; E78.5 Hyperlipidemia, unspecified; Z99.81 Dependence on supplemental oxygen; Z85.46 Personal history of malignant neoplasm of prostate; Z90.89 Acquired absence of other organs; Z79.82 Long term (current) use of aspirin; Z79.899 Other long term (current) drug therapy; Z88.2 Allergy status to sulfonamides
CPT/HCPCS: 36415; 71046; 80053; 82962; 83880; 84484; 85025; 93005; 94640; A9270-GY; J1815; J1815-GY; J2543; J7050; J7605

== ENCOUNTER 2021-08-24 13:56 | Emergency (ER) | payer MEDICARE, OTHER ==
--- NOTE | 2021-08-24 14:09 | EDM.PDOC ---
ED HPI GENERAL MEDICAL PROBLEM - General Stated Complaint: LOW 02 Time Seen by Provider: 08/24/21 14:07 Source of Information: Reports: Patient History Limitations: Reports: No Limitations - History of Present Illness INITIAL COMMENTS - FREE TEXT/NARRATIVE: 75-year-old male who presents to the emergency department via POV after being sent from the walk-in clinic secondary to low O2 saturations noted with O2 saturations in the mid 80% range. The patient reports that he has had a long- standing history of COPD and difficulty breathing. He is on 4 L/m via nasal cannula chronically and reports that for the past 2-3 days he has had increasing difficulty breathing with any kind of activity. He reports that today he taking a shower and he got very short of breath while he was taking a shower and that p rompted him to go to the clinic for evaluation. He has a chronic cough that he feels is unchanged. No fevers or chills. No chest pain. He does have some lower back pain and some hip pain but this is chronic and he reports it as mild to moderate. It is an aching and sore type pain. He tells me that while he was at home his O2 saturations were in the mid 90s but when he was over at the walk-in clinic they did monitor his O2 saturations in the mid 80s. No nausea or vomiting. No syncope or presyncope. No chest pain or back pain. On arrival here to the emergency department, his O2 saturations were 95-96% on 4 L/m via nasal cannula. There are no other associated signs or symptoms. There are no other modifying factors. Onset: Other (2 to 3 days ago.) Duration: Getting Worse Location: Reports: Other (No pain. 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 Usual home medications.) - Related Data Allergies Allergy/AdvReac Type Severity Reaction Status Date / Time Sulfa (Sulfonamide Allergy Swelling Verified 09/02/19 17:30 Antibiotics) Home Meds: Home Meds Aspirin 325 mg PO DAILY 02/22/15 [History] Citalopram [Citalopram HBr] 40 mg PO DAILY 02/22/15 [History] Insulin Detemir [Levemir Flextouch] 40 units SQ BEDTIME 02/22/15 [History] Metoprolol Tartrate 100 mg PO BID 02/22/15 [History] Insulin Aspart [NovoLOG] 10 units SUBCUT TIDMEALS 08/13/16 [History] atorvaSTATin [Lipitor] 20 mg PO BEDTIME 08/13/16 [History] Albuterol Sulfate [Ventolin Hfa] 1 - 2 puff INH Q6H PRN 01/16/18 [History] Albuterol/Ipratropium [DuoNeb 3.0-0.5 MG/3 ML] 3 ml IH Q6H PRN 01/17/18 [History] Losartan [Cozaar] 100 mg PO DAILY #30 tablet 02/06/18 [Rx] Budesonide [Pulmicort] 0.5 mg IH BID 09/13/18 [History] Potassium Chloride 10 meq PO DAILY 09/13/18 [History] Albuterol/Ipratropium [DuoNeb 3.0-0.5 MG/3 ML] 3 ml IH BID 09/15/18 [History] Tiotropium Alpine [Spiriva Respimat] 2 puff IH DAILY 09/15/18 [History] Acetaminophen [Tylenol] 650 mg PO Q6H PRN 09/02/19 [History] Formoterol Fumarate [Perforomist] 2 ml IH BID 09/02/19 [History] amLODIPine Besylate [Amlodipine Besylate] 10 mg PO DAILY 09/02/19 [History] Amoxicillin/Clavulanate K [Augmentin 875-125 MG] 1 tab PO BID #16 tablet 09/04/19 [Rx] predniSONE 10 mg PO BID #10 tablet 09/04/19 [Rx] Past Medical History HEENT History: Reports: Impaired Vision Cardiovascular History: Reports: CAD, Hypertension, [place] Respiratory History: Reports: Bronchitis, Recurrent, COPD, Pneumonia, Recurrent, SOB, Other (See Below) Other Respiratory History: Pneumonia, oxygen dependent. Gastrointestinal History: Reports: GERD Musculoskeletal History: Reports: Arthritis Endocrine/Metabolic History: Reports: Diabetes, Type II Oncologic (Cancer) History: Reports: Prostate - Infectious Disease History Infectious Disease History: Reports: Chicken Pox, Measles, Mumps - Past Surgical History HEENT Surgical History: Reports: Cataract Surgery, Other (See Below) Other HEENT Surgeries/Procedures: both eyes GI Surgical History: Reports: Appendectomy, Hernia, Inguinal Male Surgical History: Reports: Prostatectomy, Other (See Below) (Orchiectomy) Other Endocrine Surgeries/Procedures: ON INSULIN Social & Family History - Tobacco Use Tobacco Use Status *Q: Current Every Day Tobacco User (One pack per day) - Caffeine Use Caffeine Use: Reports: Coffee, Soda, Tea Other Caffeine Use: 6 CUPS A DAY Caffeine Use Comment: 4 cups per day - Alcohol Use Alcohol Use History: No - Living Situation & Occupation Living situation: Reports: , Alone Occupation: Retired Social History Comment: I have discussed CODE STATUS with the patient and he would like to be a FULL CODE. ED ROS GENERAL - Review of Systems Review Of Systems: See Below Constitutional: Denies: Fever, Chills HEENT: Reports: Glasses. Denies: Throat Pain Respiratory: Reports: Shortness of Breath, Wheezing, Cough. Denies: Pleuritic Chest Pain, Sputum Cardiovascular: Reports: Dyspnea on Exertion. Denies: Chest Pain, Lightheadedness, Palpitations, Syncope Endocrine: Reports: Fatigue GI/Abdominal: Denies: Nausea, Vomiting : Denies: Dysuria, Hematuria Musculoskeletal: Reports: Back Pain (Chronic). Denies: Neck Pain Skin: Denies: Diaphoresis, Rash Neurological: Denies: Confusion, Dizziness, Headache Hematologic/Lymphatic: Denies: Easy Bleeding, Easy Bruising Immunologic: Reports: Other (Patient has been vaccinated against Covid) ED EXAM, GENERAL - Physical Exam Exam: See Below Exam Limited By: No Limitations General Appearance: Alert, WD/WN, Moderate Distress (Some increased work of breathing.) Eye Exam: Bilateral Eye: EOMI, Normal Inspection (Sclera are anicteric) Ears: Normal External Exam, Hearing Grossly Normal Ear Exam: Bilateral Ear: Auricle Normal Nose: Normal Inspection, Normal Mucosa, No Blood Throat/Mouth: Normal Inspection, Normal Oropharynx, Normal Voice, No Airway Compromise Head: Atraumatic, Normocephalic Neck: Normal Inspection, Supple, Non-Tender, Full Range of Motion Respiratory/Chest: Respiratory Distress, Decreased Breath Sounds, Wheezing, Accessory Muscle Use, Prolonged Expiration Cardiovascular: Normal Peripheral Pulses, Regular Rate, Rhythm, No JVD, No Murmur Peripheral Pulses: 2+: Radial (L), Radial (R), Dorsalis Pedis (L), Dorsalis Pedis (R) GI/Abdominal: Normal Bowel Sounds, Soft, Non-Tender, No Mass Back Exam: Normal Inspection, Full Range of Motion Extremities: Normal Inspection, Normal Range of Motion, Non-Tender, No Pedal Edema, Normal Capillary Refill Neurological: Alert, Oriented, CN II-XII Intact, Normal Cognition, No Motor/Sensory Deficits Psychiatric: Normal Affect Skin Exam: Warm, Dry, Intact, Normal Color, No Rash #1 Interpretation EKG Date: 08/24/21 Time: 13:58 Rhythm: NSR Rate (Beats/Min): 64 [place]: LAD-Left [place] Deviation P-Wave: Present QRS: Other (Poor R-wave progression) ST-T: Normal QT: Normal Comparison: No Change (No significant change in this EKG from EKG performed on 09/02/2019.) Course - Vital Signs Last Recorded V/S: Last Vital Signs Temp 36.3 C 08/24/21 14:58 Pulse 65 08/24/21 14:58 Resp 20 08/24/21 14:58 BP 136/85 08/24/21 14:58 Pulse Ox 96 08/24/21 14:58 - Orders/Labs/Meds Orders: Active Orders 24 hr Category Date Time Status BIPAP Adult [RT BiPAP/CPAP] [RC] ASDIRECTED Care 08/24/21 16:10 Active EKG 12 Lead [EK] Routine Ther 08/24/21 14:23 Ordered Labs: Laboratory Tests 08/24/21 08/24/21 08/24/21 Range/Units 14:38 14:38 14:38 WBC 12.2 H (3.2-10.1) x10-3/uL RBC 4.88 (3.90-5.90) x10(6)uL Hgb 15.6 (12.9-17.7) g/dL Hct 47.0 (38.3-50.1) % MCV 96.3 (80.8-98.7) fL MCH 32.0 (27.0-33.3) pg MCHC 33.3 (28.7-35.3) g/dL RDW 12.6 (12.4-15.0) % Plt Count 175 (117-477) x10(3)uL MPV 8.6 (6.7-11.0) fL Neut % (Auto) 83.0 H (40.3-71.8) % Lymph % (Auto) 7.0 L (15.8-45.3) % [place] % (Auto) 6.7 (5.5-15.2) % Eos % (Auto) 2.8 (0.1-6.8) % Baso % (Auto) 0.5 (0.3-3.8) % Neut # (Auto) 10.2 H (1.7-6.9) x10-3/uL Lymph # (Auto) 0.9 (0.5-4.5) x10-3/uL [place] # (Auto) 0.8 (0.0-1.2) x10-3/uL Eos # (Auto) 0.3 (0.0-0.6) x10-3/uL Baso # (Auto) 0.1 (0.0-0.3) x10-3/uL D-Dimer, Quantitative (0.0-0.59) mg/LFEU POC VBG pH (7.32-7.43) pH Units POC VBG pCO2 (41-51) mmHg POC VBG HCO3 (22-29) mmol/L VBG Base Excess (-2 - 3+) mmol/L O2 Delivery Device Oxygen Flow Rate LPM Sodium 138 (135-145) mmol/L Potassium 4.4 (3.5-5.3) mmol/L Chloride 100 (100-110) mmol/L Carbon Dioxide 34 H (21-32) mmol/L BUN 22 H (7-18) mg/dL Creatinine 1.3 (0.70-1.30) mg/dL Est Cr Clr Drug Dosing TNP Estimated GFR (MDRD) 54 L (>60) BUN/Creatinine Ratio 16.9 (9-20) Glucose 276 H (80-116) mg/dL Calcium 8.8 (8.6-10.2) mg/dL Magnesium 1.9 (1.8-2.5) mg/dL Total Bilirubin 1.0 (0.1-1.3) mg/dL AST 11 (5-25) IU/L ALT 17 D (12-36) U/L Alkaline Phosphatase 69 (56-112) IU/L Troponin I 6.0 (4.0-60.3) pg/mL C-Reactive Protein < 0.2 L (0.5-0.9) mg/dL NT-Pro-B Natriuret Pep 284 (<=450) pg/mL Total Protein 6.7 (6.0-8.0) g/dL Albumin 3.4 (3.2-4.6) g/dL Globulin 3.3 g/dL Albumin/Globulin Ratio 1.0 SARS-CoV-2 RNA (MARGAUX) (NEGATIVE) 08/24/21 08/24/21 08/24/21 Range/Units 14:38 15:09 15:16 WBC (3.2-10.1) x10-3/uL RBC (3.90-5.90) x10(6)uL Hgb (12.9-17.7) g/dL Hct (38.3-50.1) % MCV (80.8-98.7) fL MCH (27.0-33.3) pg MCHC (28.7-35.3) g/dL RDW (12.4-15.0) % Plt Count (117-477) x10(3)uL MPV (6.7-11.0) fL Neut % (Auto) (40.3-71.8) % Lymph % (Auto) (15.8-45.3) % [place] % (Auto) (5.5-15.2) % Eos % (Auto) (0.1-6.8) % Baso % (Auto) (0.3-3.8) % Neut # (Auto) (1.7-6.9) x10-3/uL Lymph # (Auto) (0.5-4.5) x10-3/uL [place] # (Auto) (0.0-1.2) x10-3/uL Eos # (Auto) (0.0-0.6) x10-3/uL Baso # (Auto) (0.0-0.3) x10-3/uL D-Dimer, Quantitative 0.54 (0.0-0.59) mg/LFEU POC VBG pH 7.21 L* (7.32-7.43) pH Units POC VBG pCO2 93 H (41-51) mmHg POC VBG HCO3 37 H (22-29) mmol/L VBG Base Excess 4 H (-2 - 3+) mmol/L O2 Delivery Device Nasal cannula Oxygen Flow Rate 4 LPM Sodium (135-145) mmol/L Potassium (3.5-5.3) mmol/L Chloride (100-110) mmol/L Carbon Dioxide (21-32) mmol/L BUN (7-18) mg/dL Creatinine (0.70-1.30) mg/dL Est Cr Clr Drug Dosing Estimated GFR (MDRD) (>60) BUN/Creatinine Ratio (9-20) Glucose (80-116) mg/dL Calcium (8.6-10.2) mg/dL Magnesium (1.8-2.5) mg/dL Total Bilirubin (0.1-1.3) mg/dL AST (5-25) IU/L ALT (12-36) U/L Alkaline Phosphatase (56-112) IU/L Troponin I (4.0-60.3) pg/mL C-Reactive Protein (0.5-0.9) mg/dL NT-Pro-B Natriuret Pep (<=450) pg/mL Total Protein (6.0-8.0) g/dL Albumin (3.2-4.6) g/dL Globulin g/dL Albumin/Globulin Ratio SARS-CoV-2 RNA (MARGAUX) Negative (NEGATIVE) 08/24/21 Range/Units 17:22 WBC (3.2-10.1) x10-3/uL RBC (3.90-5.90) x10(6)uL Hgb (12.9-17.7) g/dL Hct (38.3-50.1) % MCV (80.8-98.7) fL MCH (27.0-33.3) pg MCHC (28.7-35.3) g/dL RDW (12.4-15.0) % Plt Count (117-477) x10(3)uL MPV (6.7-11.0) fL Neut % (Auto) (40.3-71.8) % Lymph % (Auto) (15.8-45.3) % [place] % (Auto) (5.5-15.2) % Eos % (Auto) (0.1-6.8) % Baso % (Auto) (0.3-3.8) % Neut # (Auto) (1.7-6.9) x10-3/uL Lymph # (Auto) (0.5-4.5) x10-3/uL [place] # (Auto) (0.0-1.2) x10-3/uL Eos # (Auto) (0.0-0.6) x10-3/uL Baso # (Auto) (0.0-0.3) x10-3/uL D-Dimer, Quantitative (0.0-0.59) mg/LFEU POC VBG pH 7.34 (7.32-7.43) pH Units POC VBG pCO2 59 H (41-51) mmHg POC VBG HCO3 32 H (22-29) mmol/L VBG Base Excess 4 H (-2 - 3+) mmol/L O2 Delivery Device Bipap Oxygen Flow Rate 30 LPM Sodium (135-145) mmol/L Potassium (3.5-5.3) mmol/L Chloride (100-110) mmol/L Carbon Dioxide (21-32) mmol/L BUN (7-18) mg/dL Creatinine (0.70-1.30) mg/dL Est Cr Clr Drug Dosing Estimated GFR (MDRD) (>60) BUN/Creatinine Ratio (9-20) Glucose (80-116) mg/dL Calcium (8.6-10.2) mg/dL Magnesium (1.8-2.5) mg/dL Total Bilirubin (0.1-1.3) mg/dL AST (5-25) IU/L ALT (12-36) U/L Alkaline Phosphatase (56-112) IU/L Troponin I (4.0-60.3) pg/mL C-Reactive Protein (0.5-0.9) mg/dL NT-Pro-B Natriuret Pep (<=450) pg/mL Total Protein (6.0-8.0) g/dL Albumin (3.2-4.6) g/dL Globulin g/dL Albumin/Globulin Ratio SARS-CoV-2 RNA (MARGAUX) (NEGATIVE) Meds: Medications Discontinued Medications Generic Name Dose Route Start Last Admin Trade Name Freq PRN Reason Stop Dose Admin Albuterol/Ipratropium 3 ml 08/24/21 14:25 08/24/21 15:13 Albuterol/Ipratropium 3.0-0.5 Mg/3 Ml Neb Soln NEB 08/24/21 14:26 3 ml ONETIME ONE Administration Ceftriaxone Sodium 1 gm/ 50 mls @ 200 mls/hr 08/24/21 17:04 08/24/21 17:34 Sodium Chloride IV 08/24/21 17:18 200 mls/hr ONETIME ONE Administration Azithromycin 500 mg/ Sodium 250 mls @ 250 mls/hr 08/24/21 17:05 08/24/21 17 :58 Chloride IV 08/24/21 18:04 250 mls/hr ONETIME ONE Administration Methylprednisolone Sodium Succinate 40 mg 08/24/21 16:38 08/24/21 17:32 Methylprednisolone Sodium Succinate 40 Mg/1 Ml Sdv IVPUSH 08/24/21 16:39 40 mg ONETIME ONE Administration Prednisone 60 mg 08/24/21 14:27 08/24/21 15:13 Prednisone 20 Mg Tab PO 08/24/21 14:28 60 mg ONETIME ONE Administration - Radiology Interpretation Free Text/Narrative:: Chest x-ray PA and lateral COPD changes but no acute infiltrate or evidence of CHF. This was per Dr. Williamson. - Re-Assessments/Exams Free Text/Narrative Re-Assessment/Exam: 08/24/21 15:30: A white blood cell count was 12.2. Hemoglobin was 15.6. Platelet count was normal. A serum electrolyte profile was normal except for bicarbonate of 34. BUN is 22 creatinine is 1.3. Glucose is 276. LFTs are normal. A troponin is normal. A CRP is normal. ProBNP was normal. A d-dimer was negative. A venous blood gas did show a pH 7.21 and a PCO2 of 93. The patient is maintaining O2 sats 96% or greater on 4 L/m and he is awake and alert and responding appropriately. The chest x-ray did not show any evidence of pneumonia but just evidence of COPD. The patient has remained hemodynamically stable with blood pressure in the 130s systolic and his respirator rate is just at the 20 range. The patient will need admission. I will discuss this with our nursing rug cleaning supervisor to see if he needs beds are available at this facility in addition I'll need to discuss the CODE STATUS with the patient and I'm awaiting the patient's rapid Covid. 08/24/21 16:15: There are no beds available at [facility] [place] for admission for this patient. The patient is followed through the [facility] and I will need to discuss this case with [facility] in [place]. The patient does tell me he wants to be a FULL CODE. The nursing staff is placing the patient on BiPAP. 08/24/21 16:30: I discussed the patient with the senior clinical data coordinator at [facility] and they have told me that they do not have any beds available now but would put the patient on a wait list and would get back with me in 2 hours to determine if there is even a possibility that the patient could be admitted today versus tomorrow. As I do not have any beds available here and it would not be appropriate for the patient to stay in the emergency department, I have discussed this with the patient and I will discuss the patient's case with the doctors at [facility] in [place] at present. 08/24/21 16:35: I did call the [facility] transfer line and they will have to get back with me with a physician to discuss the patient's case. 08/24/21 16:55: I discussed the patient's case with Dr. Tavares, hospitalist at [facility] in [place], and he has agreed to accept the patient in transfer. I am going to repeat the patient's venous blood gas now as he has been on BiPAP for 45 minutes. I will also give the patient an additional 40 mg of Solu-Medrol IV and give the patient Rocephin 1 g and Zithromax 500 mg IV. We will have to wait her bed availability and they will call's back with this. The patient will need to be transferred via ambulance to [facility] for direct admission. 08/24/21 17:30: The patient's repeat venous blood gas showed a pH of 7.34 and a PCO2 of 59. The patient reports he feels improved. He is awake and alert. His O2 saturations are 96-99% on BiPAP of 12/5 with an FiO2 of 30%. 08/24/21 17:45: There is bed availability at [facility]. They have assigned the patient a bed and we can transfer the patient now. We will continue current therapy and continue close monitoring of the patient. 08/24/21 19:54: [facility] is here to transport the patient now. The patient has remained hemodynamically and respiratory stable. He is awake and alert. He states he feels much improved. Departure - Departure Time of Disposition: 19:57 Disposition: DC/Tfer to [facility] 02 Condition: Fair Clinical Impression: COPD with acute exacerbation Respiratory failure with hypoxia and hypercapnia Qualifiers: Chronicity: acute on chronic Qualified Code(s): J96.21 - Acute and chronic respiratory failure with hypoxia Diabetes mellitus type 2, uncontrolled Qualifiers: Glycemic state: with hyperglycemia Qualified Code(s): E11.65 - Type 2 diabetes mellitus with hyperglycemia - Discharge Information Sepsis Event Note (ED) - Focused Exam Vital Signs: Vital Signs Temp Pulse Resp BP Pulse Ox 08/24/21 14:58 36.3 C 65 20 136/85 96 - My Orders Last 24 Hours: My Active Orders 08/24/21 14:23 EKG 12 Lead [EK] Routine 08/24/21 16:10 BIPAP Adult [RT BiPAP/CPAP] [RC] ASDIRECTED - Assessment/Plan Last 24 Hours: My Active Orders 08/24/21 14:23 EKG 12 Lead [EK] Routine 08/24/21 16:10 BIPAP Adult [RT BiPAP/CPAP] [RC] ASDIRECTED
[2021-08-24] MEDS ORDERED: Albuterol/Ipratropium 3.0-0.5 MG/3 ML Neb Soln NEB ONE (14:25)
[2021-08-24] MEDS ORDERED: predniSONE 20 MG Tab PO ONE (14:27)
[2021-08-24 15:05] VITALS: BP 136/85; PULSE 65
[2021-08-24 15:14] LABS: BASE EXCESS VENOUS,POC 4 mmol/L (-2 - 3+); PCO2 VENOUS,POC 93 mmHg (41-51); PH VENOUS,POC 7.21 pH Units (7.32-7.43)
--- NOTE | 2021-08-24 16:30 | CR ---
CHEST TWO VIEWS INDICATION: Shortness of breath. FINDINGS: Two PA and two lateral views of the chest 08/24/21 were compared with 09/04/19 and 09/13/18. The heart remains normal in size and shape. The aorta is tortuous to a mild degree with calcification in the arch. Bridging hyperostotic changes are noted in the spine. Very minimal dextroconvex scoliosis of the thoracic spine is also noted. Somewhat flattened diaphragm leads with prominent AP diameter and hyperaeration suggest COPD. A definite active infiltrate or effusion was not identified with pulmonary markings similar to the previous examination. IMPRESSION: 1. COPD with no definite acute abnormality identified. 2. ASD aorta. 3. DJD and scoliosis spine. MTDD
[2021-08-24] MEDS ORDERED: methylPREDNISolone Sodium Succinate 40 MG/1 ML SDV IVPUSH ONE (16:38)
[2021-08-24] MEDS ORDERED: cefTRIAXone 1 GM in Sodium Chloride 0.9% 50 ML IV ONE (17:04)
[2021-08-24] MEDS ORDERED: Azithromycin 500 MG in Sodium Chloride 0.9% 250 ML IV ONE (17:05)
[2021-08-24 17:26] LABS: BASE EXCESS VENOUS,POC 4 mmol/L (-2 - 3+); PCO2 VENOUS,POC 59 mmHg (41-51); PH VENOUS,POC 7.34 pH Units (7.32-7.43)
== END 2021-08-24 20:10 ==
LOC: FB.ED 13:56
DX: J44.1 Chronic obstructive pulmonary disease with (acute) exacerbation (principal); J96.21 Acute and chronic respiratory failure with hypoxia; E11.65 Type 2 diabetes mellitus with hyperglycemia; I25.10 Atherosclerotic heart disease of native coronary artery without angina pectoris; I10 Essential (primary) hypertension; I25.2 Old myocardial infarction; K21.9 Gastro-esophageal reflux disease without esophagitis; Z88.2 Allergy status to sulfonamides; Z79.82 Long term (current) use of aspirin; Z79.4 Long term (current) use of insulin; Z79.899 Other long term (current) drug therapy; Z72.0 Tobacco use; Z20.822 Contact with and (suspected) exposure to COVID-19
CPT/HCPCS: 36415; 71046; 80053; 83735; 83880; 84484; 85025; 85379; 86140; 93005; 94660; 96365; 96375; 99285; J0456; J0696; J2920; J7050; J7512; U0002; J7620-GY

== ENCOUNTER 2022-06-13 14:19 | Emergency (ER) | payer MEDICARE ==
[2022-06-13] MEDS ORDERED: Sodium Chloride 0.9% 10 ML Syringe FLUSH PRN (14:20)
[2022-06-13] MEDS: Albuterol/Ipratropium 3.0-0.5 MG/3 ML Neb Soln NEB STA (14:24)
[2022-06-13] MEDS: methylPREDNISolone Sodium Succinate 125 MG/2 ML SDV IVPUSH STA (14:26)
[2022-06-13] MEDS: Albuterol/Ipratropium 3.0-0.5 MG/3 ML Neb Soln ONE (14:43)
[2022-06-13 14:46] LABS: ESTIMATED GFR 56 mL/min (>60)
[2022-06-13 14:47] LABS: BASE EXCESS VENOUS,POC 3 mmol/L (-2 - 3+); PCO2 VENOUS,POC 48 mmHg (41-51); PH VENOUS,POC 7.38 pH Units (7.32-7.43)
[2022-06-13 18:39] VITALS: BP 128/71; PULSE 70
== END 2022-06-13 16:55 | disposition home or self-care (01) ==
LOC: FB.ED 14:19
DX: J44.1 Chronic obstructive pulmonary disease with (acute) exacerbation (principal); I25.10 Atherosclerotic heart disease of native coronary artery without angina pectoris; I10 Essential (primary) hypertension; I25.2 Old myocardial infarction; K21.9 Gastro-esophageal reflux disease without esophagitis; E11.9 Type 2 diabetes mellitus without complications; Z88.2 Allergy status to sulfonamides; Z79.82 Long term (current) use of aspirin; Z79.4 Long term (current) use of insulin; Z79.899 Other long term (current) drug therapy
CPT/HCPCS: 36415; 71045; 80053; 83880; 84484; 85025; 93005; 93010; 94640; 96374; 99282; 99285-25; J2930; J7620

== ENCOUNTER 2022-12-25 10:00 | Observation (INO) | payer MEDICARE ==
[2022-12-25] MEDS ORDERED: Sodium Chloride 0.9% 10 ML Syringe FLUSH PRN (10:34)
[2022-12-25 11:06] LABS: ESTIMATED GFR 56 mL/min (>60)
[2022-12-25 11:42] LABS: BASE EXCESS VENOUS,POC 4 mmol/L (-2 - 3+); PCO2 VENOUS,POC 49 mmHg (41-51); PH VENOUS,POC 7.39 pH Units (7.32-7.43)
[2022-12-25 11:55] LABS: CORONAVIRUS COVID-19 NAA NEGATIVE (NEGATIVE)
[2022-12-25] MEDS ORDERED: Sodium Chloride 0.9% 1,000 ML IV SCH (12:30)
[2022-12-25] MEDS ORDERED: Acetaminophen 500 MG Tab PO PRN (16:25)
[2022-12-25] MEDS: Sodium Chloride 0.9% 1,000 ML IV SCH (17:28)
[2022-12-25] MEDS ORDERED: Non-Formulary Medication 1 Each SQ SCH (18:00)
[2022-12-25] MEDS: NOVOLOG INSULIN SUBCUT SCH (18:19)
[2022-12-25] MEDS: Albuterol/Ipratropium 3.0-0.5 MG/3 ML Neb Soln *PTOM NEB SCH ×2 (18:52→21:01)
[2022-12-25] MEDS: CELECOXIB 100 MG PO SCH (21:00)
[2022-12-25] MEDS ORDERED: Montelukast 10 MG Tab *PTOM PO SCH (21:00)
[2022-12-25] MEDS ORDERED: atorvaSTATin 20 MG Tab *PTOM PO SCH (21:00)
[2022-12-25] MEDS: Metoprolol Tartrate 100 MG Tab *PTOM PO SCH (21:03)
[2022-12-25] MEDS: Gabapentin 100 MG Cap *PTOM PO SCH (21:04)
[2022-12-25] MEDS: Budesonide 0.5 MG/2 ML Neb Susp *PTOM NEB SCH (21:05)
[2022-12-25] MEDS: FORMOTEROL FUMARATE 20 MCG/2 ML INH SCH (21:26)
[2022-12-26] MEDS: Budesonide 0.5 MG/2 ML Neb Susp *PTOM NEB SCH (06:06)
[2022-12-26] MEDS: Sodium Chloride 0.9% 1,000 ML IV SCH (06:08)
[2022-12-26 07:29] LABS: ESTIMATED GFR 94 mL/min (>60)
[2022-12-26] MEDS: Albuterol/Ipratropium 3.0-0.5 MG/3 ML Neb Soln *PTOM NEB SCH (08:25)
[2022-12-26] MEDS: Metoprolol Tartrate 100 MG Tab *PTOM PO SCH (08:26)
[2022-12-26] MEDS: CELECOXIB 100 MG PO SCH (08:26)
[2022-12-26] MEDS: Gabapentin 100 MG Cap *PTOM PO SCH (08:31)
[2022-12-26] MEDS: FORMOTEROL FUMARATE 20 MCG/2 ML INH SCH (08:37)
[2022-12-26 08:38] VITALS: BP 158/83; PULSE 72
[2022-12-26] MEDS ORDERED: INSULIN DETEMIR 100 UNIT/ML SQ SCH (09:00)
[2022-12-26] MEDS ORDERED: Cyanocobalamin (Vitamin B12) 1,000 MCG Tab *PTOM PO SCH (09:00)
[2022-12-26] MEDS ORDERED: Potassium Chloride 10 MEQ Tab.ER *PTOM PO SCH (09:00)
[2022-12-26] MEDS ORDERED: Tiotropium Bromide 4 GM Inhalation Spray (2.5mcg/1 dose; 10 doses) INH SCH (09:00)
[2022-12-26] MEDS ORDERED: amLODIPine 2.5 MG Tab *PTOM PO SCH (09:00)
[2022-12-26] MEDS ORDERED: Magnesium Oxide 400 MG Tab *PTOM PO SCH (09:00)
[2022-12-26] MEDS ORDERED: Aspirin 81 MG Tab.EC *PTOM PO SCH (09:00)
[2022-12-26] MEDS ORDERED: Enoxaparin 40 MG/0.4 ML Syringe SUBCUT SCH (09:00)
[2022-12-26] MEDS ORDERED: Losartan 50 MG Tab *PTOM PO SCH (09:00)
[2022-12-26] MEDS ORDERED: Isosorbide Mononitrate 30 MG Tab.ER *PTOM PO SCH (09:00)
[2022-12-26] MEDS ORDERED: Nicotine 7 MG/24 Hr Patch TRDERM SCH (09:00)
[2022-12-26] MEDS ORDERED: CITALOPRAM 40 MG PO SCH (09:00)
[2022-12-26] MEDS: NOVOLOG INSULIN SUBCUT SCH (11:28)
[2022-12-26] MEDS ORDERED: AZITHROMYCIN 500 MG PO SCH (21:00)
== END 2022-12-26 12:45 | disposition home health service (06) ==
LOC: FB.ED 10:00 → FB.MS 15:46
PROVIDERS: ADMIT Family Medicine; ATTEND Family Medicine
DX: R53.1 Weakness (principal); R26.2 Difficulty in walking, not elsewhere classified; J44.9 Chronic obstructive pulmonary disease, unspecified; J96.11 Chronic respiratory failure with hypoxia; J96.12 Chronic respiratory failure with hypercapnia; E78.2 Mixed hyperlipidemia; E11.9 Type 2 diabetes mellitus without complications; I10 Essential (primary) hypertension; F32.9 Major depressive disorder, single episode, unspecified; I25.10 Atherosclerotic heart disease of native coronary artery without angina pectoris; E86.0 Dehydration; M19.90 Unspecified osteoarthritis, unspecified site; F17.210 Nicotine dependence, cigarettes, uncomplicated; Z79.4 Long term (current) use of insulin; Z51.5 Encounter for palliative care; Z20.822 Contact with and (suspected) exposure to COVID-19; Z88.2 Allergy status to sulfonamides; Z79.82 Long term (current) use of aspirin; Z79.899 Other long term (current) drug therapy; Z98.890 Other specified postprocedural states
CPT/HCPCS: 0241U; 36415; 71045; 80048; 80053; 81001; 82947; 83605; 84484; 85025; 85610; 85730; 93005; 94640; 96372; 97161-GP; 97165-GO; 99222; 99238; A9270-GY; G0378; J1650; J7030; J7620

== ENCOUNTER 2023-01-12 21:45 | Emergency (ER) | payer MEDICARE, OTHER ==
[2023-01-12] MEDS ORDERED: Silver Sulfadiazine 1% Crm 50 GM Tube TOP ONE (21:46)
[2023-01-12] MEDS ORDERED: Diphtheria,Pertussis(Acell),Tetanus Vaccine 0.5 ML Syringe IM ONE (21:56)
[2023-01-13 00:29] VITALS: BP 153/86; PULSE 63
== END 2023-01-13 00:47 | disposition home or self-care (01) ==
LOC: FB.ED 21:45
DX: T20.14XA Burn of first degree of nose (septum), initial encounter (principal); T20.16XA Burn of first degree of forehead and cheek, initial encounter; J44.9 Chronic obstructive pulmonary disease, unspecified; I25.10 Atherosclerotic heart disease of native coronary artery without angina pectoris; I10 Essential (primary) hypertension; I25.2 Old myocardial infarction; K21.9 Gastro-esophageal reflux disease without esophagitis; E11.9 Type 2 diabetes mellitus without complications; Z88.2 Allergy status to sulfonamides; Z79.4 Long term (current) use of insulin; Z79.899 Other long term (current) drug therapy; Z79.82 Long term (current) use of aspirin; Z23 Encounter for immunization; X19.XXXA Contact with other heat and hot substances, initial encounter
CPT/HCPCS: 71045; 90471; 90715; 99283; 99284-25; A9270-GY

== ENCOUNTER 2023-06-21 12:02 | Emergency (ER) | payer MEDICARE, OTHER ==
[2023-06-21] MEDS ORDERED: Sodium Chloride 0.9% 10 ML Syringe FLUSH PRN (12:18)
[2023-06-21] MEDS ORDERED: Sodium Chloride 0.9% 1,000 ML IV SCH (12:30)
[2023-06-21 12:35] LABS: BASOPHILS ABSOLUTE AUTO 0.1 x10-3/uL (0.0-0.3); BASOPHILS PERCENT AUTO 0.6 % (0.3-3.8); EOSINOPHILS ABSOLUTE AUTO 0.2 x10-3/uL (0.0-0.6); EOSINOPHILS PERCENT AUTO 1.9 % (0.1-6.8); HEMATOCRIT 44.3 % (38.3-50.1); LYMPHOCYTES ABSOLUTE AUTO 1.2 x10-3/uL (0.5-4.5); LYMPHOCYTES PERCENT AUTO 10.3 % (15.8-45.3); MEAN CORPUSCULAR HEMOGLOBIN 33.3 pg (27.0-33.3); MEAN CORPUSCULAR HGB CONC 33.9 g/dL (28.7-35.3); MEAN CORPUSCULAR VOLUME 98.2 fL (80.8-98.7); MEAN PLATELET VOLUME 9.1 fL (6.7-11.0); MONOCYTES ABSOLUTE AUTO 0.7 x10-3/uL (0.0-1.2); MONOCYTES PERCENT AUTO 6.4 % (5.5-15.2); NEUTROPHILS ABSOLUTE AUTO 9.4 x10-3/uL (1.7-6.9); NEUTROPHILS PERCENT AUTO 80.8 % (40.3-71.8); PLATELET COUNT,PLT 201 x10(3)uL (117-477); RED BLOOD CELL COUNT 4.51 x10(6)uL (3.90-5.90); RED CELL DISTRIBUTION WIDTH 13.4 % (12.4-15.0); WHITE BLOOD CELL COUNT,WBC 11.7 x10-3/uL (3.2-10.1)
[2023-06-21 12:43] LABS: BLOOD UREA NITROGEN,BUN 19 mg/dL (7-18); BUN/CREATININE RATIO 14.6 (9-20); CALCIUM 8.5 mg/dL (8.6-10.2); CARBON DIOXIDE,CO2 34 mmol/L (21-32); CHLORIDE,CL 101 mmol/L (100-110); CREATININE 1.3 mg/dL (0.70-1.30); ESTIMATED GFR 56 mL/min (>60); GLUCOSE RANDOM 226 mg/dL (80-116); POTASSIUM,K 4.3 mmol/L (3.5-5.3); SODIUM,NA 137 mmol/L (135-145)
[2023-06-21 12:49] LABS: A/G RATIO 1.1; ALANINE AMINOTRANSFERASE,ALT 22 U/L (12-36); ALBUMIN 3.4 g/dL (3.2-4.6); ALKALINE PHOSPHATASE 67 IU/L (56-112); ASPARTATE AMNIOTRANSFERASE,AST 18 IU/L (5-25); BILIRUBIN TOTAL 1.1 mg/dL (0.1-1.3); PROTEIN TOTAL,TP 6.5 g/dL (6.0-8.0)
[2023-06-21 14:44] VITALS: BP 121/75; PULSE 59
== END 2023-06-21 14:32 | disposition home or self-care (01) ==
LOC: FB.ED 12:02
DX: I95.9 Hypotension, unspecified (principal); E86.0 Dehydration; F17.210 Nicotine dependence, cigarettes, uncomplicated; I25.10 Atherosclerotic heart disease of native coronary artery without angina pectoris; I25.2 Old myocardial infarction; I10 Essential (primary) hypertension; K21.9 Gastro-esophageal reflux disease without esophagitis; E11.9 Type 2 diabetes mellitus without complications; Z79.82 Long term (current) use of aspirin; Z79.899 Other long term (current) drug therapy; Z79.4 Long term (current) use of insulin; Z88.2 Allergy status to sulfonamides
CPT/HCPCS: 36415; 80053; 85025; 96360; 99284; J3490; J7030

== ENCOUNTER 2023-09-05 10:09 | Emergency (ER) | payer OTHER, MEDICARE ==
[2023-09-05 11:25] LABS: BASOPHILS ABSOLUTE AUTO 0.1 x10-3/uL (0.0-0.3); BASOPHILS PERCENT AUTO 0.3 % (0.3-3.8); EOSINOPHILS ABSOLUTE AUTO 0.3 x10-3/uL (0.0-0.6); EOSINOPHILS PERCENT AUTO 2.2 % (0.1-6.8); HEMATOCRIT 45.1 % (38.3-50.1); HEMOGLOBIN 15.5 g/dL (12.9-17.7); LYMPHOCYTES ABSOLUTE AUTO 1.1 x10-3/uL (0.5-4.5); LYMPHOCYTES PERCENT AUTO 7.2 % (15.8-45.3); MEAN CORPUSCULAR HEMOGLOBIN 33.8 pg (27.0-33.3); MEAN CORPUSCULAR HGB CONC 34.3 g/dL (28.7-35.3); MEAN CORPUSCULAR VOLUME 98.4 fL (80.8-98.7); MEAN PLATELET VOLUME 9.3 fL (6.7-11.0); MONOCYTES ABSOLUTE AUTO 0.9 x10-3/uL (0.0-1.2); MONOCYTES PERCENT AUTO 5.8 % (5.5-15.2); NEUTROPHILS PERCENT AUTO 84.5 % (40.3-71.8); PLATELET COUNT,PLT 164 x10(3)uL (117-477); RED BLOOD CELL COUNT 4.58 x10(6)uL (3.90-5.90); RED CELL DISTRIBUTION WIDTH 13.3 % (12.4-15.0); WHITE BLOOD CELL COUNT,WBC 15.4 x10-3/uL (3.2-10.1)
[2023-09-05 11:33] LABS: BLOOD UREA NITROGEN,BUN 25 mg/dL (7-18); BUN/CREATININE RATIO 31.3 (9-20); CALCIUM 9.1 mg/dL (8.6-10.2); CARBON DIOXIDE,CO2 38 mmol/L (21-32); CHLORIDE,CL 100 mmol/L (100-110); CREATININE 0.8 mg/dL (0.70-1.30); EST CRCL DRUG DOSING (CG) 87.05 mL/min; ESTIMATED GFR 90 mL/min (>60); GLUCOSE RANDOM 149 mg/dL (80-116); POTASSIUM,K 4.3 mmol/L (3.5-5.3); SODIUM,NA 139 mmol/L (135-145)
[2023-09-05 11:38] LABS: ALANINE AMINOTRANSFERASE,ALT 44 U/L (12-36); ALBUMIN 3.5 g/dL (3.2-4.6); ALKALINE PHOSPHATASE 83 IU/L (56-112); ASPARTATE AMNIOTRANSFERASE,AST 23 IU/L (5-25); BILIRUBIN TOTAL 1.4 mg/dL (0.1-1.3); PROTEIN TOTAL,TP 7.1 g/dL (6.0-8.0)
[2023-09-05] MEDS ORDERED: traMADol 50 MG Tab PO ONE (12:19)
[2023-09-05] MEDS ORDERED: Doxycycline 100 MG Tab PO ONE (12:20)
[2023-09-05] MEDS ORDERED: predniSONE 20 MG Tab PO ONE (12:20)
[2023-09-05 14:02] VITALS: BP 114/69; PULSE 61
== END 2023-09-05 17:01 | disposition home or self-care (01) ==
LOC: FB.ED 10:09
DX: S20.211A Contusion of right front wall of thorax, initial encounter (principal); J44.1 Chronic obstructive pulmonary disease with (acute) exacerbation; F17.210 Nicotine dependence, cigarettes, uncomplicated; I10 Essential (primary) hypertension; I25.10 Atherosclerotic heart disease of native coronary artery without angina pectoris; I25.2 Old myocardial infarction; K21.9 Gastro-esophageal reflux disease without esophagitis; E11.9 Type 2 diabetes mellitus without complications; Z90.49 Acquired absence of other specified parts of digestive tract; Z79.82 Long term (current) use of aspirin; Z79.899 Other long term (current) drug therapy; Z79.4 Long term (current) use of insulin; Z88.2 Allergy status to sulfonamides; W10.9XXA Fall (on) (from) unspecified stairs and steps, initial encounter
CPT/HCPCS: 36415; 71101-RT; 80053; 85025; 86140; 99284; A9270-GY; J7512